=== PATIENT | male | born 1950 | race African-American/Black ===

== ENCOUNTER 2018-09-27 03:29 | Inpatient (IN) | payer OTHER ==
[2018-09-27] MEDS ORDERED: DILTIAZEM DRIP BOLUS FROM BAG 1 MG SOLN IV ONE (03:53)
[2018-09-27] MEDS ORDERED: MORPHINE SULFATE 4 MG/ML SYRINGE IV STA (03:53)
[2018-09-27] MEDS: DILTIAZEM 50 MG in SODIUM CHLORIDE 0.9% 40 ML IV SCH ×3 (04:14→23:50)
--- NOTE | 2018-09-27 04:19 | XR ---
EXAMINATION TYPE: XR chest 1V portable DATE OF EXAM: 09/27/2018 COMPARISON: NONE HISTORY: Abdominal pain TECHNIQUE: Single frontal view of the chest is obtained. FINDINGS: Heart is enlarged. There is no heart failure. Lungs are clear of consolidation. Thoracic a lin is atheromatous. There are chest leads. There is severe subacromial joint space narrowing at the shoulder joints. IMPRESSION: Cardiomegaly. No active cardiopulmonary disease.
[2018-09-27 04:21] LABS: Albumin 4.5 g/dL (3.5-5.0); Anisocytosis Slight; Basophils % (A) 0 %; Calcium 8.9 mg/dL (8.4-10.2); Eosinophils % (A) 0 %; HCT 29.3 % (39.0-53.0); HGB 9.1 gm/dL (13.0-17.5); Hypochromasia Slight; Lymphocytes # (A) 1.4 k/uL (1.0-4.8); Lymphocytes % (A) 10 %; MCHC 31.2 g/dL (31.0-37.0); MCV 89.7 fL (80.0-100.0); Mean Platelet Volume 8.7; Monocytes # (A) 0.8 k/uL (0-1.0); Monocytes % (A) 6 %; Neutrophils # (A) 11.5 k/uL (1.3-7.7); Neutrophils % (A) 82 %; Platelet Count 246 k/uL (150-450); Potassium 3.2 mmol/L (3.5-5.1); RBC 3.26 m/uL (4.30-5.90); RDW 18.2 % (11.5-15.5); Total Bilirubin 0.5 mg/dL (0.2-1.3); WBC 13.9 k/uL (3.8-10.6)
[2018-09-27 04:30] LABS: Partial Thromboplastin Time 22.3 sec (22.0-30.0); Prothrombin Time 10.5 sec (9.0-12.0)
[2018-09-27 04:37] LABS: Large Platelets Present; Poikilocytosis (M) Present
--- NOTE | 2018-09-27 04:37 | ED ---
Abdominal Pain HPI - General Chief Complaint: Abdominal Pain Stated Complaint: abd pain Time Seen by Provider: 09/27/18 03:52 Source: patient, family Mode of arrival: wheelchair Limitations: no limitations - History of Present Illness Initial Comments: This patient is a 68-year-old man presenting with chief complaint of abdominal pain. The patient does appear to be mildly delirious and the history is somewhat limited as he is not answering all questions. MD Complaint: abdominal pain -: hour(s) Location: suprapubic Radiation: back Migration to: no migration Severity: severe Quality: aching Consistency: constant Improves With: nothing Worsens With: eating Associated Symptoms: denies other symptoms - Related Data Allergies Allergy/AdvReac Type Severity Reaction Status Date / Time aspirin Allergy Rash/Hives Verified 09/27/18 03:38 Review of Systems ROS Statement: Those systems with pertinent positive or pertinent negative responses have been documented in the HPI. ROS Other: All systems not noted in ROS Statement are negative. Constitutional: Denies: fever, chills Respiratory: Denies: cough, dyspnea Cardiovascular: Denies: chest pain, edema Gastrointestinal: Reports: abdominal pain. Denies: diarrhea, constipation, melena Genitourinary: Denies: dysuria, hematuria Musculoskeletal: Denies: back pain Skin: Denies: rash Neurological: Denies: headache, weakness, numbness Past Medical History Past Medical History: Hypertension History of Any Multi-Drug Resistant Organisms: None Reported Past Surgical History: No Surgical Hx Reported Past Psychological History: No Psychological Hx Reported Smoking Status: Current every day smoker Past Alcohol Use History: Abuse Past Drug Use History: None Reported General Exam Limitations: no limitations General appearance: alert, in no apparent distress Head exam: Present: atraumatic, normocephalic Eye exam: Present: normal appearance. Absent: scleral icterus, conjunctival injection ENT exam: Present: normal oropharynx Respiratory exam: Present: normal lung sounds bilaterally. Absent: respiratory distress, wheezes, rales, rhonchi, stridor Cardiovascular Exam: Present: regular rate, normal rhythm, systolic murmur. Absent: normal heart sounds GI/Abdominal exam: Present: soft, tenderness. Absent: distended, guarding, rebound, mass, pulsatile mass Extremities exam: Present: normal inspection, normal capillary refill. Absent: pedal edema, calf tenderness Back exam: Absent: CVA tenderness (R), CVA tenderness (L) Skin exam: Present: warm, dry, intact, normal color. Absent: rash Course Vital Signs 09/27/18 09/27/18 09/27/18 03:32 04:00 04:30 Temperature 98.4 F Pulse Rate 74 144 H 114 H Respiratory 18 19 22 Rate Blood Pressure 158/93 193/90 148/104 O2 Sat by Pulse 97 100 100 Oximetry 09/27/18 09/27/18 05:00 08:17 Temperature 98 F Pulse Rate 108 H 103 H Respiratory 20 16 Rate Blood Pressure 152/105 162/97 O2 Sat by Pulse 100 100 Oximetry - Reevaluation(s) Reevaluation #1: 09/27/18 08:24 I was informed by nursing staff that they were told the patient has history of heroin use. Suspect there may be some element of withdrawal and will administer methadone to see if this helps to resolve patient's delirium. Procedures - Central Line Placement Right IJ Consent Obtained: emergent situation Time Out Performed: Yes Patient Placed on Monitor/Pulse Ox: Yes Prep: mask, gown, gloves Central Line Prep: Chlorhexidine scrub Local Anesthesia Used: Lidocaine 1% Ultrasound Used for Placement: Yes Central Line Lumen Inserted: triple Central Line Position: good blood return, all ports aspirated, flushed, capped, sutured in place with nylon Dressing Applied: Tegaderm Patient Tolerated Procedure: well Complications: none Medical Decision Making - Lab Data Result diagrams: 09/27/18 04:00 09/27/18 04:00 Lab Results 09/27/18 09/27/18 09/27/18 Range/Units 04:00 04:00 04:00 WBC 13.9 H (3.8-10.6) k/uL RBC 3.26 L (4.30-5.90) m/uL Hgb 9.1 L (13.0-17.5) gm/dL Hct 29.3 L (39.0-53.0) % MCV 89.7 (80.0-100.0) fL MCH 28.0 (25.0-35.0) pg MCHC 31.2 (31.0-37.0) g/dL RDW 18.2 H (11.5-15.5) % Plt Count 246 (150-450) k/uL Neutrophils % 82 % Lymphocytes % 10 % Monocytes % 6 % Eosinophils % 0 % Basophils % 0 % Neutrophils # 11.5 H (1.3-7.7) k/uL Lymphocytes # 1.4 (1.0-4.8) k/uL Monocytes # 0.8 (0-1.0) k/uL Eosinophils # 0.0 (0-0.7) k/uL Basophils # 0.0 (0-0.2) k/uL Manual Slide Review Performed Large Platelets Present Hypochromasia Slight Poikilocytosis (manual Present Anisocytosis Slight PT (9.0-12.0) sec INR (<1.2) APTT (22.0-30.0) sec Sodium 141 (137-145) mmol/L Potassium 3.2 L (3.5-5.1) mmol/L Chloride 106 (98-107) mmol/L Carbon Dioxide 17 L (22-30) mmol/L Anion Gap 18 mmol/L BUN 22 H (9-20) mg/dL Creatinine 1.35 H (0.66-1.25) mg/dL Est GFR (CKD-EPI)AfAm 62 (>60 ml/min/1.73 sqM) Est GFR (CKD-EPI)NonAf 54 (>60 ml/min/1.73 sqM) Glucose 219 H (74-99) mg/dL Lactic Ac Sepsis Rflx Plasma Lactic Acid Eugene 6.7 H* (0.7-2.0) mmol/L Calcium 8.9 (8.4-10.2) mg/dL Total Bilirubin 0.5 (0.2-1.3) mg/dL AST 72 H (17-59) U/L ALT 38 (21-72) U/L Alkaline Phosphatase 171 H (38-126) U/L Troponin I (0.000-0.034) ng/mL Total Protein 9.0 H (6.3-8.2) g/dL Albumin 4.5 (3.5-5.0) g/dL Amylase 397 H* (30-110) U/L Lipase 158 (23-300) U/L Urine Color Urine Appearance (Clear) Urine pH (5.0-8.0) Ur Specific [place] (1.001-1.035) Urine Protein (Negative) Urine Glucose (UA) (Negative) Urine Ketones (Negative) Urine Blood (Negative) Urine Nitrite (Negative) Urine Bilirubin (Negative) Urine Urobilinogen (<2.0) mg/dL Ur Leukocyte Esterase (Negative) Urine WBC (0-5) /hpf Urine Mucus (None) /hpf 09/27/18 09/27/18 09/27/18 Range/Units 04:00 04:00 04:55 WBC (3.8-10.6) k/uL RBC (4.30-5.90) m/uL Hgb (13.0-17.5) gm/dL Hct (39.0-53.0) % MCV (80.0-100.0) fL MCH (25.0-35.0) pg MCHC (31.0-37.0) g/dL RDW (11.5-15.5) % Plt Count (150-450) k/uL Neutrophils % % Lymphocytes % % Monocytes % % Eosinophils % % Basophils % % Neutrophils # (1.3-7.7) k/uL Lymphocytes # (1.0-4.8) k/uL Monocytes # (0-1.0) k/uL Eosinophils # (0-0.7) k/uL Basophils # (0-0.2) k/uL Manual Slide Review Large Platelets Hypochromasia Poikilocytosis (manual Anisocytosis PT 10.5 (9.0-12.0) sec INR 1.0 (<1.2) APTT 22.3 (22.0-30.0) sec Sodium (137-145) mmol/L Potassium (3.5-5.1) mmol/L Chloride (98-107) mmol/L Carbon Dioxide (22-30) mmol/L Anion Gap mmol/L BUN (9-20) mg/dL Creatinine (0.66-1.25) mg/dL Est GFR (CKD-EPI)AfAm (>60 ml/min/1.73 sqM) Est GFR (CKD-EPI)NonAf (>60 ml/min/1.73 sqM) Glucose (74-99) mg/dL Lactic Ac Sepsis Rflx Y Plasma Lactic Acid Eugene (0.7-2.0) mmol/L Calcium (8.4-10.2) mg/dL Total Bilirubin (0.2-1.3) mg/dL AST (17-59) U/L ALT (21-72) U/L Alkaline Phosphatase (38-126) U/L Troponin I 0.058 H* (0.000-0.034) ng/mL Total Protein (6.3-8.2) g/dL Albumin (3.5-5.0) g/dL Amylase (30-110) U/L Lipase (23-300) U/L Urine Color Urine Appearance (Clear) Urine pH (5.0-8.0) Ur Specific [place] (1.001-1.035) Urine Protein (Negative) Urine Glucose (UA) (Negative) Urine Ketones (Negative) Urine Blood (Negative) Urine Nitrite (Negative) Urine Bilirubin (Negative) Urine Urobilinogen (<2.0) mg/dL Ur Leukocyte Esterase (Negative) Urine WBC (0-5) /hpf Urine Mucus (None) /hpf 09/27/18 Range/Units 06:40 WBC (3.8-10.6) k/uL RBC (4.30-5.90) m/uL Hgb (13.0-17.5) gm/dL Hct (39.0-53.0) % MCV (80.0-100.0) fL MCH (25.0-35.0) pg MCHC (31.0-37.0) g/dL RDW (11.5-15.5) % Plt Count (150-450) k/uL Neutrophils % % Lymphocytes % % Monocytes % % Eosinophils % % Basophils % % Neutrophils # (1.3-7.7) k/uL Lymphocytes # (1.0-4.8) k/uL Monocytes # (0-1.0) k/uL Eosinophils # (0-0.7) k/uL Basophils # (0-0.2) k/uL Manual Slide Review Large Platelets Hypochromasia Poikilocytosis (manual Anisocytosis PT (9.0-12.0) sec INR (<1.2) APTT (22.0-30.0) sec Sodium (137-145) mmol/L Potassium (3.5-5.1) mmol/L Chloride (98-107) mmol/L Carbon Dioxide (22-30) mmol/L Anion Gap mmol/L BUN (9-20) mg/dL Creatinine (0.66-1.25) mg/dL Est GFR (CKD-EPI)AfAm (>60 ml/min/1.73 sqM) Est GFR (CKD-EPI)NonAf (>60 ml/min/1.73 sqM) Glucose (74-99) mg/dL Lactic Ac Sepsis Rflx Plasma Lactic Acid Eugene (0.7-2.0) mmol/L Calcium (8.4-10.2) mg/dL Total Bilirubin (0.2-1.3) mg/dL AST (17-59) U/L ALT (21-72) U/L Alkaline Phosphatase (38-126) U/L Troponin I (0.000-0.034) ng/mL Total Protein (6.3-8.2) g/dL Albumin (3.5-5.0) g/dL Amylase (30-110) U/L Lipase (23-300) U/L Urine Color Light Yellow Urine Appearance Clear (Clear) Urine pH 7.0 (5.0-8.0) Ur Specific [place] 1.006 (1.001-1.035) Urine Protein 1+ H (Negative) Urine Glucose (UA) Trace H (Negative) Urine Ketones Negative (Negative) Urine Blood Moderate H (Negative) Urine Nitrite Negative (Negative) Urine Bilirubin Negative (Negative) Urine Urobilinogen <2.0 (<2.0) mg/dL Ur Leukocyte Esterase Negative (Negative) Urine WBC 1 (0-5) /hpf Urine Mucus Rare H (None) /hpf - EKG Data -: EKG Interpreted by Ne EKG shows normal: axis Rate: tachycardia Interpretation: other (Normal the underlying rhythm appears to be atrial fibrillation with RVR rate approximately 135 bpm) Disposition Referrals: None,Stated [Primary Care Provider] - 1-2 days
[2018-09-27] MEDS ORDERED: SODIUM CHLORIDE 0.9% 2,100 ML IV ONE (05:00)
[2018-09-27] MEDS ORDERED: LORazepam 2 MG/ML INJ IV STA (05:01)
--- NOTE | 2018-09-27 06:04 | CT ---
EXAMINATION TYPE: CT ChestAbdPelvis w con DATE OF EXAM: 09/27/2018 COMPARISON: None HISTORY: abd pain chest pain CT DLP: 596.80 mGycm Automated exposure control for dose reduction was used. CONTRAST: CT scan of the chest, abdomen and pelvis is performed without Oral Contrast and with IV Contrast, pat ient injected with 100 mL of Isovue 300. FINDINGS: There is some mild atelectasis at the lung bases. Heart is enlarged. There is no pericardial effusion . There is no pleural effusion. There is no mediastinal adenopathy. Thoracic aorta is atheromatous. T here are no hilar masses. Liver shows no focal defect. The bile ducts are not dilated. Spleen appears normal. There is a 1 cm c yst in the anterior pancreatic head. There is mild dilation of the mid and distal pancreatic duct. Abdominal aorta is atheromatous. There is no retroperitoneal adenopathy. There is no adrenal mass. Ki dneys show satisfactory contrast opacification. There are multiple bilateral renal cortical cysts macy t measure up to 1.7 cm. There is dilation of the left and right renal collecting systems. Urinary cheikh dder is large. Prostate measures 4.4 cm. There is no free fluid in the pelvis. There is right-sided i nguinal and scrotal hernia that contains the cecum and the terminal ileum. Appendix is not definitely seen. There is no sign of appendicitis. I see no definite free fluid in the abdomen. There are spondylotic changes in the thoracic and lumbar spine. There is no compression fracture. The bony pelvis is intact. There is extensive hypertrophic bone formation around the greater trochanter of the left femur. There is bridging osteophyte formation between the acetabulum and the greater troc hanter.. IMPRESSION: Cardiomegaly. Patchy atelectasis at the lung bases. Atherosclerotic vascular disease. Mild to moderate bilateral hydronephrosis and mild hydroureter probably due to chronic bladder outlet obstruction. Dilated urinary bladder that measures 14 cm in length. No obstructing calculus identifi ed. Large right side scrotal hernia containing cecum and terminal ileum. No bowel obstruction seen. No evidence of thoracic or abdominal aortic aneurysm or dissection.
[2018-09-27 07:04] LABS: Appearance,Urine Clear (Clear); Bilirubin,Urine Negative (Negative); Blood,Urine Moderate (Negative); Color,Urine Light Yellow; Glucose,Urine (UA) Trace (Negative); Ketones,Urine Negative (Negative); Leukocyte Esterase,Urine Negative (Negative); Mucus,Urine Rare /hpf; Nitrite,Urine Negative (Negative); Protein,Urine 1+ (Negative); Specific Gravity,Urine 1.006 (1.001-1.035); Urobilinogen,Urine <2.0 mg/dL (<2.0); WBC,Urine 1 /hpf (0-5)
[2018-09-27] MEDS ORDERED: ENOXAPARIN 60 MG/0.6 ML SYRINGE SQ STA (08:14)
[2018-09-27] MEDS ORDERED: LEVOFLOXACIN 750MG-D5W PMX 750 MG in DEXTROSE/WATER 1 150ML.BAG IVPB STA (08:17)
[2018-09-27] MEDS ORDERED: ONDANSETRON 4 MG/2 ML VIAL IVP PRN (08:20)
[2018-09-27] MEDS ORDERED: NALOXONE 0.4 MG/ML 1 ML VIAL IV PRN (08:20)
[2018-09-27] MEDS ORDERED: SODIUM CHLORIDE 0.9% 1,000 ML IV STA (08:23)
[2018-09-27] MEDS ORDERED: METHADONE 10 MG TAB PO STA (08:41)
--- NOTE | 2018-09-27 09:06 | XR ---
EXAMINATION TYPE: XR chest 1V confirm line plctx DATE OF EXAM: 09/27/2018 HISTORY: line placement. REFERENCE: Previous study dated earlier today. FINDINGS: The right internal jugular line has been inserted. Its tip is within the jugular vein. A pa in stimulator is present overlying the dorsal spine. A poorly visualized opacities seen overlying the trachea was not present previously. The etiology of this is uncertain. The heart is enlarged. There is mild vascular congestion and subtle interstitial change. Pleural spac es are clear. IMPRESSION: MILD CHANGES OF CONGESTIVE HEART FAILURE.
[2018-09-27] MEDS: FAMOTIDINE 20 MG TAB PO SCH ×2 (09:11→21:18)
[2018-09-27] MEDS: MORPHINE SULFATE 4 MG/ML SYRINGE IV PRN ×2 (09:12→12:55)
--- NOTE | 2018-09-27 14:33 | US ---
EXAMINATION TYPE: US scrotum with doppler. Grayscale and color Doppler Duplex imaging performed of earl ribeiro scrotum. DATE OF EXAM: 09/27/2018 COMPARISON: NONE CLINICAL HISTORY: BLOOD, SWELLING. Patient states swollen testicles for awhile now, but getting worse , no testicle pain EXAM MEASUREMENTS: TESTICLES: Right Testicle: 7.0 x 5.4 x 5.5cm Left Testicle: 4.1 x 2.1 x 2.4cm EPIDIDYMIS HEAD: Right Epididymis: not seen Left Epididymis: 0.6cm Doppler performed to assess for testicular vascularity; good bilateral color flow and waveforms are s een. There is no evidence of testicular torsion. Presence of hydroceles: mild bilaterally, inferior right, superior left Presence of varicoceles: no Right testicle is enlarged and filled with calcifications. Was able to achieve peripheral blood ava w to testicle but all the internal calcifications creates artifact that prohibits vascular assessment . Testicular microlithiasis typically density bilateral. In this case it is only unilateral. IMPRESSION: GRADE 4 RIGHT-SIDED TESTICULAR MICROLITHIASIS. THERE IS A DEBATABLE INCREASED RISK OF TESTICULAR CANC ER. UROLOGIC CONSULT WOULD BE SUGGESTED.
[2018-09-27] MEDS ORDERED: PIPERACILLIN-TAZOBACTAM 3.375 GM in SODIUM CHLORIDE 0.9% 100 ML IVPB STA (14:58)
[2018-09-27] MEDS ORDERED: HYDROmorphone 1 MG/ML 1 ML SYRINGE IVP STA (14:59)
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
[2018-09-27 15:37] LABS: Anisocytosis Slight; HCT 29.7 % (39.0-53.0); HGB 9.6 gm/dL (13.0-17.5); MCHC 32.5 g/dL (31.0-37.0); MCV 89.4 fL (80.0-100.0); Mean Platelet Volume 8.3; Platelet Count 196 k/uL (150-450); RBC 3.33 m/uL (4.30-5.90); RDW 18.2 % (11.5-15.5); WBC 8.9 k/uL (3.8-10.6)
[2018-09-27 15:47] LABS: Albumin 4.2 g/dL (3.5-5.0); Calcium 8.5 mg/dL (8.4-10.2); Potassium 3.5 mmol/L (3.5-5.1); Total Bilirubin 0.7 mg/dL (0.2-1.3); Total Protein 8.5 g/dL (6.3-8.2)
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
--- NOTE | 2018-09-27 15:57 | P.HPIM ---
History of Present Illness This is a pleasant 68 years old male with past medical history of hypertension and no much home medication presents because of abdominal pain In the emergency room he was afebrile, tachycardic with heart rate range between 110-144. Tachypneic with heart rate 25 blood pressure 137/88. Labs reviewed showing WBC 13.9 K, hemoglobin 9.1, platelets 246. INR 1.0. Sodium 141. Potassium 3.2. High lactic acid 6.7, coming down to 3.1, with elevated AST at 72. With normal ALT. Troponin is elevated at 0.05 and 0.08. Amylase is high but lipase within normal at 158. Urinalysis showing moderate blood. Chest x-ray showed cardiomegaly with no active cardiopulmonary disease. The patient was shown mild changes of congestive CHF. CT of the abdomen and pelvis showing right-sided inguinal and scrotal hernia contents the cecum and terminal ileum. But don't us obstruction. However in the abdominal examination patient has significant abdominal tenderness and scrotal tenderness with his swelling. This was discussed with the surgical call Dr. Cline and the plan was to take him to the surgery for his acute abdomen and after that may be to the intensive care unit. I spoke with the patient and he able to do the surgery also I spoke with the patient daughter upon his request Mrs. Pederson at [phone]. And updated her with her father situation and all her rashes were answered to her satisfaction. Review of Systems CONSTITUTIONAL: No fever, no malaise, no fatigue. HEENT: No recent visual problems or hearing problems. Denied any sore throat. CARDIOVASCULAR: No orthopnea, PND, no palpitations, no syncope. PULMONARY: No shortness of breath, no cough, no hemoptysis. GASTROINTESTINAL: Severe abdominal pain. Normoactive bowel sounds. NEUROLOGICAL: No headaches, no weakness, no numbness. HEMATOLOGICAL: Denies any bleeding or petechiae. GENITOURINARY: Denies any burning micturition, frequency, or urgency. MUSCULOSKELETAL/RHEUMATOLOGICAL: Denies any joint pain, swelling, or any muscle pain. ENDOCRINE: Denies any polyuria or polydipsia. Past Medical History Past Medical History: Hypertension History of Any Multi-Drug Resistant Organisms: None Reported Past Surgical History: No Surgical Hx Reported Past Psychological History: No Psychological Hx Reported Smoking Status: Current every day smoker Past Alcohol Use History: Abuse Past Drug Use History: None Reported Medications and Allergies Home Medications Medication Instructions Recorded Confirmed Type Atorvastatin [Lipitor] 40 mg PO HS 09/27/18 09/27/18 History Clopidogrel [Plavix] 75 mg PO DAILY 09/27/18 09/27/18 History Elviteg/Cob/Emtri/Tenof Alafen 1 tab PO DAILY 09/27/18 09/27/18 History [Genvoya Tablet] amLODIPine [Norvasc] 10 mg PO DAILY 09/27/18 09/27/18 History Allergies Allergy/AdvReac Type Severity Reaction Status Date / Time aspirin Allergy Rash/Hives Verified 09/27/18 11:30 Physical Exam Vitals: Vital Signs Temp Pulse Resp BP Pulse Ox 09/27/18 14:00 110 H 25 H 137/88 96 09/27/18 13:00 114 H 25 H 138/87 99 09/27/18 12:00 123 H 20 144/90 100 09/27/18 11:00 115 H 20 136/82 100 09/27/18 10:55 99.2 F 09/27/18 10:00 118 H 24 132/91 09/27/18 09:17 112 H 18 158/92 100 09/27/18 08:17 98 F 103 H 16 162/97 100 09/27/18 05:00 108 H 20 152/105 100 09/27/18 04:30 114 H 22 148/104 100 09/27/18 04:00 144 H 19 193/90 100 09/27/18 03:32 98.4 F 74 18 158/93 97 Intake and Output 09/27/18 09/27/18 09/27/18 06:59 14:59 22:59 Intake Total 50.000 Balance 50.000 Intake: Intake, IV Titration 50.000 Amount Diltiazem 50 mg In Sodium 50.000 Chloride 0.9% 40 ml @ 5 MG/HR 5 mls/hr IV .Q[facility]H [facility] Rx#:[id number] Other: Weight 65.771 kg GENERAL: The patient is alert and oriented x3, not in any acute distress. Well developed, well nourished. HEENT: Pupils are round and equally reacting to light. EOMI. No scleral icterus. No conjunctival pallor. Normocephalic, atraumatic. No pharyngeal erythema. No thyromegaly. CARDIOVASCULAR: S1 and S2 present. No murmurs, rubs, or gallops. PULMONARY: Chest is clear to auscultation, no wheezing or crackles. -ABDOMEN: Soft, severely tender, rebound tenderness nondistended, normoactive bowel sounds. No palpable organomegaly. At scrotal swelling and tenderness MUSCULOSKELETAL: No joint swelling or deformity. EXTREMITIES: No cyanosis, clubbing, or pedal edema. NEUROLOGICAL: Gross neurological examination did not reveal any focal deficits. SKIN: No rashes. Results CBC & Chem 7: 09/27/18 15:07 09/27/18 15:07 Labs: Abnormal Lab Results - Last 24 Hours (Table) 09/27/18 09/27/18 09/27/18 Range/Units 04:00 04:00 04:00 WBC 13.9 H (3.8-10.6) k/uL RBC 3.26 L (4.30-5.90) m/uL Hgb 9.1 L (13.0-17.5) gm/dL Hct 29.3 L (39.0-53.0) % RDW 18.2 H (11.5-15.5) % Neutrophils # 11.5 H (1.3-7.7) k/uL Potassium 3.2 L (3.5-5.1) mmol/L Carbon Dioxide 17 L (22-30) mmol/L BUN 22 H (9-20) mg/dL Creatinine 1.35 H (0.66-1.25) mg/dL Glucose 219 H (74-99) mg/dL Plasma Lactic Acid Eugene 6.7 H* (0.7-2.0) mmol/L AST 72 H (17-59) U/L Alkaline Phosphatase 171 H (38-126) U/L Troponin I (0.000-0.034) ng/mL Total Protein 9.0 H (6.3-8.2) g/dL Amylase 397 H* (30-110) U/L Urine Protein (Negative) Urine Glucose (UA) (Negative) Urine Blood (Negative) Urine Mucus (None) /hpf 09/27/18 09/27/18 09/27/18 Range/Units 04:00 06:40 09:31 WBC (3.8-10.6) k/uL RBC (4.30-5.90) m/uL Hgb (13.0-17.5) gm/dL Hct (39.0-53.0) % RDW (11.5-15.5) % Neutrophils # (1.3-7.7) k/uL Potassium (3.5-5.1) mmol/L Carbon Dioxide (22-30) mmol/L BUN (9-20) mg/dL Creatinine (0.66-1.25) mg/dL Glucose (74-99) mg/dL Plasma Lactic Acid Eugene 3.1 H* (0.7-2.0) mmol/L AST (17-59) U/L Alkaline Phosphatase (38-126) U/L Troponin I 0.058 H* (0.000-0.034) ng/mL Total Protein (6.3-8.2) g/dL Amylase (30-110) U/L Urine Protein 1+ H (Negative) Urine Glucose (UA) Trace H (Negative) Urine Blood Moderate H (Negative) Urine Mucus Rare H (None) /hpf 09/27/18 Range/Units 09:31 WBC (3.8-10.6) k/uL RBC (4.30-5.90) m/uL Hgb (13.0-17.5) gm/dL Hct (39.0-53.0) % RDW (11.5-15.5) % Neutrophils # (1.3-7.7) k/uL Potassium (3.5-5.1) mmol/L Carbon Dioxide (22-30) mmol/L BUN (9-20) mg/dL Creatinine (0.66-1.25) mg/dL Glucose (74-99) mg/dL Plasma Lactic Acid Eugene (0.7-2.0) mmol/L AST (17-59) U/L Alkaline Phosphatase (38-126) U/L Troponin I 0.082 H* (0.000-0.034) ng/mL Total Protein (6.3-8.2) g/dL Amylase (30-110) U/L Urine Protein (Negative) Urine Glucose (UA) (Negative) Urine Blood (Negative) Urine Mucus (None) /hpf Assessment and Plan Assessment: Acute abdomen Incarcerated right inguinal hernia, patient is going for surgery Anemia Lactic acid Elevated troponin Hematuria Scrotal swelling, for sound showing calcification. Plan: This is a pleasant 68 years old male who presents with acute abdomen secondary to incarcerated hernia. Patient is going for surgery. Surgical team was been contacted. Surgery consult is appreciated as well as critical team consult. Continue with IV fluids. NG tube. Nothing by mouth.Labs and medication were reviewed. After surgery patient might be going to the intensive care unit. Continue same treatment. Continue with symptomatic treatment. Resume home medication. Monitor lytes and vitals. DVT and GI prophylaxis. Further recommendations of the clinical course of the patient Prognosis is guarded
[2018-09-27 15:59] LABS: Band Neutrophils % 7 %; Lymphocytes # (M) 0.27 k/uL (1.0-4.8); Monocytes # (M) 0.62 k/uL (0-1.0); Neutrophils % (M) 83 %; Nucleated Red Blood Cells 0 /100 WBC (0-0); Total Cells Counted 100
[2018-09-27 16:00] LABS: Poikilocytosis (M) Present
--- NOTE | 2018-09-27 16:04 | XR ---
Abdomen HISTORY: Abdominal pain, nausea and vomiting Frontal view of the abdomen on [address] chest, abdomen pelvis 09/27/2018 and scrotal ultrasound 09/27/2018 Patient's stimulator in the left lower chest shows a lead coursing along the sternal region as on pre vious exam. Lung bases show some minimal atelectatic change. No evident pneumoperitoneum. Distortion of the left hip seen on prior exam. Gas-filled loop of bowel present in the mid abdomen may correspon d. Degenerative disc changes are present in the visualized spine. The area identified in the right hemiscrotum on ultrasound corresponds to a bowel loop due to patient 's hernia. IMPRESSION: Correlate to exclude bowel obstruction due to patient's hernia with bowel loop extending into the right hemiscrotum.
[2018-09-27] MEDS ORDERED: SUCCINYLCHOLINE CHLORIDE 100 MG/5 ML SYR IV ONE (16:36)
[2018-09-27] MEDS ORDERED: fentaNYL (PF) 50 MCG/ML 2 ML AMP ONE (16:36)
[2018-09-27] MEDS ORDERED: ETOMIDATE 2 MG/ML 10 ML VIAL ONE (16:36)
[2018-09-27] MEDS ORDERED: PHENYLEPHRINE-0.9% NACL SYG 1 MG/10 ML SYRINGE ONE (16:36)
[2018-09-27] MEDS ORDERED: ROCURONIUM BROMIDE 10 MG/ML 10 ML VIAL IV ONE (16:36)
[2018-09-27] MEDS ORDERED: MIDAZOLAM 2 MG/2 ML VIAL ONE (16:36)
[2018-09-27] MEDS ORDERED: SODIUM CHLORIDE 0.9% 1,000 ML IV ONE ×3 (16:36→19:59)
[2018-09-27 17:13] LABS: Anisocytosis Slight; HCT 27.1 % (39.0-53.0); HGB 8.7 gm/dL (13.0-17.5); MCH 28.1 pg (25.0-35.0); MCHC 31.9 g/dL (31.0-37.0); MCV 88.1 fL (80.0-100.0); Mean Platelet Volume 8.7; Platelet Count 169 k/uL (150-450); RBC 3.08 m/uL (4.30-5.90); RDW 17.9 % (11.5-15.5); WBC 7.2 k/uL (3.8-10.6)
[2018-09-27 17:31] LABS: Band Neutrophils % 13 %; Lymphocytes # (M) 0.14 k/uL (1.0-4.8); Monocytes # (M) 0.43 k/uL (0-1.0); Neutrophils % (M) 79 %; Nucleated Red Blood Cells 0 /100 WBC (0-0); Total Cells Counted 100
[2018-09-27 17:39] LABS: Albumin 3.5 g/dL (3.5-5.0); Calcium 7.9 mg/dL (8.4-10.2); Total Bilirubin 0.7 mg/dL (0.2-1.3); Total Protein 7.6 g/dL (6.3-8.2)
--- NOTE | 2018-09-27 18:48 | P.OP ---
Date of Procedure: 09/27/18 Preoperative Diagnosis: Peritonitis Postoperative Diagnosis: Ischemic bowel Strangulated inguinal hernia Procedure(s) Performed: Exploratory laparotomy Bowel resection Ileostomy creation Anesthesia: LAURA Surgeon: Aiden Cline Pathology: other (Right colon, extended) Condition: critical Disposition: ICU Indications for Procedure: This is a 68-year-old male that presented to the emergency department with complaints of abdominal pain. During his emergency department workup, he was found to have an incarcerated inguinal hernia. His clinical status diminished during his emergency department stay and I was consulted by the heel cementer machine due to questionable peritonitis. On my exam, the patient did have peritonitis and was unable to give a clear history due to moderate amount of distress. The patient did have peritonitis with palpation of his abdomen and tenderness on palpation in his scrotum. His scrotum did have palpable hernia contents. The ER did place a right-sided internal jugular central venous catheter and a Pickett catheter. Prior to the arrival to the operating room, the Pickett catheter was noted to have bright red blood. The patient was taken to the operating room as an emergent case due to peritonitis. The anesthesiologist did place an A-line prior to the beginning of the operation. Operative Findings: Ischemic bowel, beginning in the distal ileum and extending throughout the right colon and most of the transverse colon. The bowel was noted to be strangulated in the right inguinal canal. During the operation, the patient was noted to be hypotensive and was begun on pressor therapy during the case. Description of Procedure: The patient was brought into the operating suite and placed in supine position on the operating table. Sedation was provided by anesthesia and the patient underwent endotracheal intubation. The patient was then prepped and draped in regular sterile fashion. A midline incision was made from the pubis towards just superior to the umbilicus. Dissection was carried to the fascia the fascia was incised along the length of the incision. On immediate entrance into the abdomen turbid fluid was noted and a significant foul odor was noted. The patient was noted to have a strangulated right inguinal hernia. The ischemia from the hernia contents was noted to contain the ileum and the cecum. Ischemia was noted throughout the colon that extended throughout the right colon and the transverse colon. Once the hernia was reduced, a site of healthy bowel was isolated proximally and this was noted as the distal ileum. A window was created in the mesentery and a KHRIS 75 mm staple load was fired. A LigaSure device was used to resect the colon from the mesenteric attachments. This was done throughout the right colon and towards the transverse colon. The white line of Toldt was dissected free, completely removing the colon from all of its attachments. A distal site of healthy colon was noted and the KHRIS 75 mm staple load was fired across this site. Irrigation was then used within the abdomen. During the case, anesthesia was required to begin pressor therapy. Due to the patient's clinical status, it was decided to create a loop ileostomy and close the abdomen. A circular incision was made in the right lower quadrant dissection was carried to the fascia the fascia was incised and a cruciate manner and the abdomen was entered. The loop of ileostomy was pulled through this site. The midline incision was then closed using a running PDS suture. Skin incision was closed with skin hever. The ileostomy was then matured in standard fashion. Throughout the case, the patient was noted to continue to have hematuria. Due to the patient needing pressor therapy and having such an extensive ischemic portion of colon, the patient's prognosis at this point is poor.
[2018-09-27 18:54] LABS: Glucose,Whole Blood 113 mg/dL (75-99)
[2018-09-27] MEDS: PROPOFOL 1,000 MG in EMPTY BAG 1 BAG IV SCH (19:48)
[2018-09-27 19:52] LABS: ABG Base Excess -7.2 mmol/L; ABG HCO3 20 mmol/L (21-25); ABG PCO2 47 mmHg (35-45); ABG PH 7.24 (7.35-7.45); ABG PO2 291 mmHg (83-108); ABG TCO2 22 mmol/L (19-24)
--- NOTE | 2018-09-27 20:11 | XR ---
EXAMINATION TYPE: XR chest 1V portable DATE OF EXAM: 09/27/2018 COMPARISON: Today HISTORY: Check line placement TECHNIQUE: Single frontal view of the chest is obtained. FINDINGS: There is right jugular catheter with the tip over the right clavicle. There is nasogastric tube. There is endotracheal tube with the tip approximately 4 cm from the danna. There are chest le ads. There are bilateral lower lobe patchy pulmonary infiltrates. Heart is enlarged. No pneumothorax. IMPRESSION: Endotracheal tube in good position. There is cardiomegaly and pulmonary congestion sugge stive of mild heart failure. Chest x-ray not significantly different than exam earlier today.
[2018-09-27] MEDS: SODIUM CHLORIDE 0.9% 1,000 ML IV SCH (20:24)
[2018-09-27] MEDS: CHLORHEXIDINE GLUCONATE 15 ML CUP MUCOUS MEM SCH (21:00)
[2018-09-28] MEDS: MORPHINE SULFATE 4 MG/ML SYRINGE IV PRN ×3 (01:22→16:34)
[2018-09-28 04:30] LABS: ABG Base Excess -9.5 mmol/L; ABG HCO3 17 mmol/L (21-25); ABG Oxygen Saturation 98.8 % (94-97); ABG PCO2 33 mmHg (35-45); ABG PH 7.32 (7.35-7.45); ABG PO2 119 mmHg (83-108); ABG TCO2 18 mmol/L (19-24)
[2018-09-28 04:52] LABS: Anisocytosis Slight; HCT 23.6 % (39.0-53.0); HGB 7.6 gm/dL (13.0-17.5); Hypochromasia Slight; MCH 29.1 pg (25.0-35.0); MCHC 32.3 g/dL (31.0-37.0); MCV 90.1 fL (80.0-100.0); Mean Platelet Volume 9.5; Platelet Count 162 k/uL (150-450); RBC 2.62 m/uL (4.30-5.90); RDW 18.3 % (11.5-15.5)
[2018-09-28 05:02] LABS: Calcium 7.1 mg/dL (8.4-10.2); Magnesium 1.7 mg/dL (1.6-2.3); Phosphorus 5.5 mg/dL (2.5-4.5); Potassium 5.1 mmol/L (3.5-5.1)
[2018-09-28] MEDS ORDERED: SODIUM CHLORIDE 0.9% 1,000 ML IV ONE (05:55)
[2018-09-28 06:06] LABS: Band Neutrophils % 30 %; Lymphocytes # (M) 0.17 k/uL (1.0-4.8); Monocytes # (M) 0.11 k/uL (0-1.0); Myelocytes # (M) 0.11 k/uL (0); Myelocytes % 2 %; Neutrophils % (M) 63 %; Nucleated Red Blood Cells 1 /100 WBC (0-0); Total Cells Counted 200
[2018-09-28 06:07] LABS: Polychromasia Present; WBC 5.6 k/uL (3.8-10.6)
--- NOTE | 2018-09-28 06:18 | XR ---
EXAMINATION TYPE: XR chest 1V portable DATE OF EXAM: 09/28/2018 HISTORY: Tube placement. REFERENCE: Previous study dated 09/27/2018. FINDINGS: The patient is ET tube, NG tube and right internal jugular catheter remain in place, unchan ged in appearance. A pain stimulator projects over the thoracic spine. The heart is enlarged. Vascular congestion has improved. There continues to be some confluent airspac e disease the lung bases bilaterally. Both CP angles are blunted and I cannot exclude small effusions . IMPRESSION: IMPROVING CHANGES OF CONGESTIVE HEART FAILURE.
[2018-09-28] MEDS: DILTIAZEM 50 MG in SODIUM CHLORIDE 0.9% 40 ML IV SCH ×2 (07:45→15:07)
[2018-09-28] MEDS: MAGNESIUM SULFATE-D5W PMX 1 GM in DEXTROSE/WATER 1 100ML.BAG IVPB SCH ×2 (07:47→08:12)
[2018-09-28] MEDS: SODIUM CHLORIDE 0.9% 1,000 ML IV SCH (07:47)
[2018-09-28] MEDS: CHLORHEXIDINE GLUCONATE 15 ML CUP MUCOUS MEM SCH (08:12)
[2018-09-28] MEDS: PANTOPRAZOLE 40 MG/10 ML VIAL IVP SCH (08:12)
[2018-09-28] MEDS: PIPERACILLIN-TAZOBACTAM 3.375 GM in SODIUM CHLORIDE 0.9% 100 ML IVPB SCH ×4 (08:12→16:33)
--- NOTE | 2018-09-28 10:44 | CONS ---
CONSULTATION This is a 68-year-old gentleman who has most of his health care in the [place] area. He goes to the [facility] and also has a place in [place] where he gets some of his health care. He came into the emergency room because of an abdominal pain. He is going through an IV drug abuse rehab in a nursing home house on [facility] in a house in [place] and developed abdominal pain in the suprapubic area then bilaterally in the right and left upper quadrants and came into the hospital. He was also found to be in atrial fibrillation. CT scan revealed dilated urinary bladder with the scrotal hernia as well. He clinically had a bowel obstruction and was seen by Dr. Pate and went on to have a resection of his bowel on distal part of the ileum and also the ascending and transverse colon as well. He basically had a bowel resection and ileostomy creation for a strangulated hernia and ischemic bowel. He was found to be in atrial fibrillation and he has been on Plavix for this medication. He is at this time, intubated, has converted to sinus rhythm and is on a Cardizem drip. He is on Plavix and atorvastatin and because of his HIV status, he is on medication for that and amlodipine. It is unclear whether his atrial fibrillation is new or old, but he is not on any anticoagulation other than antiplatelet agent Plavix. At the time of my evaluation, he is hemodynamically stable on the ventilator. He is not on any drips, oxygenating well. PAST MEDICAL HISTORY: 1. Hypertension. 2. HIV status, on medications. 3. Hypertension. 4. Hyperlipidemia. 5. History of IV drug abuse in a rehab situation in [place] at this time and he is originally a resident of [facility]. MEDICATIONS: At home include amlodipine 10 mg daily, Plavix 75 mg daily, Lipitor 40 mg daily, and he takes a combination pill for his HIV. ALLERGIES: HE IS ALLERGIC TO ASPIRIN. PHYSICAL EXAMINATION: Blood pressure is 120/70, pulse rate is about 80 per minute appears to be sinus today, but initial EKG when he came in revealed atrial fibrillation with moderate rapid ventricular rate, nonspecific ST-T changes and voltage criteria for LVH. His troponin also had a borderline elevation when he first came in at 0.9 and 0.8 respectively, but this could be related to atrial fibrillation also. On examination blood pressure is 120/70, pulse is about 90 per minute sinus HEENT: Unremarkable. Fundus was not examined by me. NECK: Supple. There is JVD of 1 cm. No carotid bruit. Heart exam reveals S1, S2 with and with a short systolic murmur at the base and left sternal border. Lungs reveal air entry assisted by ventilator. Abdomen is soft. I did not do a detailed exam. Lower extremities reveal diminished pulses. Central nervous system assessment was not possible. IMPRESSION: 1. Acute abdominal with ischemic bowel and strangulated hernia status post surgery and bowel resection with ileostomy. 2. Hypertension. 3. Hyperlipidemia. 4. HIV positive status on medications. 5. History of paroxysmal atrial fibrillation, which I do not think is new, but he is not anticoagulated. RECOMMENDATIONS: I am recommending that we decrease IV Cardizem to 5 mg daily, perform echocardiogram in the morning. His blood pressure control is optimal. We will check with Dr. York as to when we can start anticoagulation for this gentleman. Based on his clinical course, I will make further recommendations but overall prognosis remains quite guarded. Thank you very much for the consultation. MMODL / IJN: [id number] /
[2018-09-28] MEDS: DEXTROSE 5% IN WATER 1,000 ML with SODIUM BICARB (1 MEQ/ML) 150 ML IV SCH ×2 (10:58→20:00)
--- NOTE | 2018-09-28 11:16 | P.PN ---
Subjective Progress Note Date: 09/28/18 Patient seen and examined at bedside. Currently intubated. Adequate urine output. NG tube in place for decompression. Ostomy in place with no significant output at this time. Objective - Vital Signs Vital signs: Vital Signs Temp 99.4 F 09/28/18 08:00 Pulse 96 09/28/18 11:00 Resp 25 H 09/28/18 11:00 BP 127/91 09/27/18 15:00 Pulse Ox 98 09/28/18 11:00 Intake & Output 09/27/18 09/28/18 09/28/18 18:59 06:59 18:59 Intake Total 4700.753 8953.132 818.75 Output Total 500 615 460 Balance 914.319 4272.132 358.75 Weight 67 kg 67 kg Intake: IV 1000 3349 800 Dextrose 5% in Water 1, 125 000 ml @ 125 mls/hr IV . Q9H12M [facility] with Sodium Bicarb (1 Meq/ml) 150 ml Rx#:[id number] Magnesium Sulfate-D5w Pmx 200 1 gm In Dextrose/Water 1 100ml.bag @ 100 mls/hr IVPB Q1H [facility] Rx#: [id number] Normal saline 1000 Piperacillin-Tazobactam 3 100 100 .375 gm In Sodium Chloride 0.9% 100 ml @ 25 mls/hr IVPB ONCE STA Rx# :[id number] Sodium Chloride 0.9% 1, 2249 375 000 ml @ 125 mls/hr IV . Q8H [facility] Rx#:[id number] Intake, IV Titration 50.000 161.132 18.75 Amount Diltiazem 50 mg In Sodium 50.000 100 18.75 Chloride 0.9% 40 ml @ 5 MG/HR 5 mls/hr IV .Q10H [facility] Rx#:[id number] Propofol 1,000 mg In 61.132 Empty Bag 1 bag @ Titrate IV .Q0M [facility] Rx#: [id number] Output: Gastric Drainage 250 Urine 400 615 210 Estimated Blood Loss 100 Other: Voiding Method Indwelling Catheter Indwelling Catheter ABP, PAP, CO, CI - Last Documented Arterial Blood Pressure 120/58 - Constitutional Constitutional Comment(s): Vented and sedated - Respiratory Details: No difficulty on ventilator - Gastrointestinal Gastrointestinal Comment(s): Soft, distended, midline incision with hever in place. Ostomy red and patent - Labs CBC & Chem 7: 09/28/18 04:33 09/28/18 04:33 Labs: Abnormal Lab Results - Last 24 Hours (Table) 09/27/18 09/27/18 09/27/18 Range/Units 15:07 15:07 15:07 RBC 3.33 L (4.30-5.90) m/uL Hgb 9.6 L (13.0-17.5) gm/dL Hct 29.7 L (39.0-53.0) % RDW 18.2 H (11.5-15.5) % Neutrophils # (Manual) 8.00 H (1.3-7.7) k/uL Lymphocytes # (Manual) 0.27 L (1.0-4.8) k/uL Myelocytes # (Manual) (0) k/uL Nucleated RBCs (0-0) /100 WBC ABG pH (7.35-7.45) ABG pCO2 (35-45) mmHg ABG pO2 (83-108) mmHg ABG HCO3 (21-25) mmol/L ABG Total CO2 (19-24) mmol/L ABG O2 Saturation (94-97) % Chloride 109 H (98-107) mmol/L Carbon Dioxide 19 L (22-30) mmol/L BUN 24 H (9-20) mg/dL Creatinine (0.66-1.25) mg/dL Glucose 110 H (74-99) mg/dL POC Glucose (mg/dL) (75-99) mg/dL Plasma Lactic Acid Eugene (0.7-2.0) mmol/L Calcium (8.4-10.2) mg/dL Phosphorus (2.5-4.5) mg/dL AST 135 H (17-59) U/L ALT (21-72) U/L Alkaline Phosphatase 182 H (38-126) U/L Troponin I 0.094 H* (0.000-0.034) ng/mL Total Protein 8.5 H (6.3-8.2) g/dL 09/27/18 09/27/18 09/27/18 Range/Units 15:07 16:50 16:50 RBC 3.08 L (4.30-5.90) m/uL Hgb 8.7 L (13.0-17.5) gm/dL Hct 27.1 L (39.0-53.0) % RDW 17.9 H (11.5-15.5) % Neutrophils # (Manual) (1.3-7.7) k/uL Lymphocytes # (Manual) 0.14 L (1.0-4.8) k/uL Myelocytes # (Manual) (0) k/uL Nucleated RBCs (0-0) /100 WBC ABG pH (7.35-7.45) ABG pCO2 (35-45) mmHg ABG pO2 (83-108) mmHg ABG HCO3 (21-25) mmol/L ABG Total CO2 (19-24) mmol/L ABG O2 Saturation (94-97) % Chloride 110 H (98-107) mmol/L Carbon Dioxide 19 L (22-30) mmol/L BUN 25 H (9-20) mg/dL Creatinine (0.66-1.25) mg/dL Glucose 111 H (74-99) mg/dL POC Glucose (mg/dL) (75-99) mg/dL Plasma Lactic Acid Eugene 3.5 H* (0.7-2.0) mmol/L Calcium 7.9 L (8.4-10.2) mg/dL Phosphorus (2.5-4.5) mg/dL AST 200 H (17-59) U/L ALT 90 H (21-72) U/L Alkaline Phosphatase 146 H (38-126) U/L Troponin I (0.000-0.034) ng/mL Total Protein (6.3-8.2) g/dL 09/27/18 09/27/18 09/28/18 Range/Units 18:50 19:49 04:25 RBC (4.30-5.90) m/uL Hgb (13.0-17.5) gm/dL Hct (39.0-53.0) % RDW (11.5-15.5) % Neutrophils # (Manual) (1.3-7.7) k/uL Lymphocytes # (Manual) (1.0-4.8) k/uL Myelocytes # (Manual) (0) k/uL Nucleated RBCs (0-0) /100 WBC ABG pH 7.24 L 7.32 L (7.35-7.45) ABG pCO2 47 H 33 L (35-45) mmHg ABG pO2 291 H 119 H (83-108) mmHg ABG HCO3 20 L 17 L (21-25) mmol/L ABG Total CO2 18 L (19-24) mmol/L ABG O2 Saturation 100.0 H 98.8 H (94-97) % Chloride (98-107) mmol/L Carbon Dioxide (22-30) mmol/L BUN (9-20) mg/dL Creatinine (0.66-1.25) mg/dL Glucose (74-99) mg/dL POC Glucose (mg/dL) 113 H (75-99) mg/dL Plasma Lactic Acid Eugene (0.7-2.0) mmol/L Calcium (8.4-10.2) mg/dL Phosphorus (2.5-4.5) mg/dL AST (17-59) U/L ALT (21-72) U/L Alkaline Phosphatase (38-126) U/L Troponin I (0.000-0.034) ng/mL Total Protein (6.3-8.2) g/dL 09/28/18 09/28/18 Range/Units 04:33 04:33 RBC 2.62 L (4.30-5.90) m/uL Hgb 7.6 L (13.0-17.5) gm/dL Hct 23.6 L (39.0-53.0) % RDW 18.3 H (11.5-15.5) % Neutrophils # (Manual) (1.3-7.7) k/uL Lymphocytes # (Manual) 0.17 L (1.0-4.8) k/uL Myelocytes # (Manual) 0.11 H (0) k/uL Nucleated RBCs 1 H (0-0) /100 WBC ABG pH (7.35-7.45) ABG pCO2 (35-45) mmHg ABG pO2 (83-108) mmHg ABG HCO3 (21-25) mmol/L ABG Total CO2 (19-24) mmol/L ABG O2 Saturation (94-97) % Chloride 114 H (98-107) mmol/L Carbon Dioxide 17 L (22-30) mmol/L BUN 30 H (9-20) mg/dL Creatinine 1.41 H (0.66-1.25) mg/dL Glucose (74-99) mg/dL POC Glucose (mg/dL) (75-99) mg/dL Plasma Lactic Acid Eugene (0.7-2.0) mmol/L Calcium 7.1 L (8.4-10.2) mg/dL Phosphorus 5.5 H (2.5-4.5) mg/dL AST (17-59) U/L ALT (21-72) U/L Alkaline Phosphatase (38-126) U/L Troponin I (0.000-0.034) ng/mL Total Protein (6.3-8.2) g/dL Microbiology - Last 24 Hours (Table) 09/27/18 19:43 Sputum Culture - Preliminary Sputum Assessment and Plan (1) Ischemia, bowel Narrative/Plan: Postoperative day #1 from expiratory laparotomy and ischemic bowel resection - Continue fluid resuscitation - ICU management - Continue Pickett catheter, continue nasogastric tube decompression - Hold any feeds - Cardiology recommendations appreciated - Prognosis very guarded Current Visit: Yes Status: Acute Code(s): K55.9 - VASCULAR DISORDER OF INTESTINE, UNSPECIFIED SNOMED Code(s): 20089238
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
[2018-09-28] MEDS: PROPOFOL 1,000 MG in EMPTY BAG 1 BAG IV SCH ×2 (12:44→18:36)
--- NOTE | 2018-09-28 13:13 | P.PN ---
Subjective Progress Note Date: 09/28/18 This is a 68-year-old -[place] male patient who lives in [place] and the patient usually goes to the [facility] and [facility] for usual medical care. He came in to our emergency department because of abdominal pain. He is currently rehabilitating for substance abuse, IV drug abuse and he was in a fdc house on [facility] where he developed increased abdominal pain initially in the suprapubic area and later on his lower abdomen bilaterally more so on the right and the pain was constant and radiating to his back. He came into the emergency department and he was seen by the ED physician. He was given IV morphine for pain control. White cell count was at 15.9. A computed tomography scan of the abdomen was done that showed dilated urinary bladder in addition to a large right-sided scrotal hernia containing the cecum and the terminal ileum. There was no evidence of any bowel obstruction. No evidence of any thoracic or abdominal aortic aneurysm or dissection. The patient initially lactic acid level was 6.7. He was started on IV fluids. He was found to be in atrial fibrillation with rapid ventricular response and he was placed on a Cardizem drip at 5 mg an hour and the patient was admitted to the hospital. I had a chance to evaluate this patient this afternoon. Upon my arrival the patient was in excruciating pain. He was hurting to the point where he was unable to lay down in bed. He was trying to get himself out of the bed. I noted some bloody urine in his Pickett catheter. Abdomen was quite tense and tender and there was direct and rebound tenderness. The right scrotum was quite swollen. No bowel sounds were appreciated. The concern was an incarcerated indirect hernia, with an acute abdomen. Based on that, I immediate recall general surgery and I asked him to come and evaluate this patient in the emergency department as soon as possible for possible surgical intervention of this indirect inguinal hernia. The ultrasound of the testicle showed a grade 4 right-sided testicular microlithiasis.. The patient has noted some progressive swelling in the right scrotum over the past 3 weeks. According to him this is a new finding. No nausea. No vomiting. No chest pain. On today's evaluation of 09/28/2008 and I'm seeing this patient in follow-up. Note that I saw this patient in the emergency department and the patient had an acute abdomen. He was immediately taken to the operating room. Intraoperatively, the patient was found to have ischemic bowel beginning in the distal ileum and extensively throughout the right colon and most of the transverse colon. The bowel was also noted to be strangulated in the right inguinal canal. During the surgery, the patient was noted to be hypotensive and he was started on pressors. He was placed on Rosendo-Synephrine. He underwent a expected to laparotomy, bowel resection and ileostomy was also created. Following that the patient was brought into the intensive care unit. He was kept intubated and on mechanical ventilator. Overnight, the pressors were discontinued. He was given a total of 4 L of IV fluids and currently is on a maintenance and this patient to a bicarb infusion with a rate of 1 25 mL an hour knowing that the patient has some underlying metabolic acidosis. He remains on a mechanical ventilator. He was quite asynchronous. I switched him to a VC plus molds. His current and a tidal volume of 450 with a rate of 14 and FiO2 of 50% with a PEEP of 5. His morning blood gases showed a pH of 7.32 with a pCO2 of 33 and pO2 of 119. The fluid balance is +3.4 L over the past 12 hours. He is producing urine output. He is sedated with Diprivan is calm and comfortable. NG tube is in place. Surgical wound site is clean. Ileostomy site is viable at this point in time. He is covered with broad-spectrum antibiotics with IV Zosyn. Hemoglobin is at 7.6. There was a slight jump in the creatinine which is up to 1.41 which is expected. Objective - Vital Signs Vital signs: Vital Signs Temp 99.4 F 09/28/18 08:00 Pulse 96 09/28/18 11:00 Resp 25 H 09/28/18 11:00 BP 127/91 09/27/18 15:00 Pulse Ox 98 09/28/18 11:00 Intake & Output 09/27/18 09/28/18 09/28/18 18:59 06:59 18:59 Intake Total 2847.468 0032.000 818.75 Output Total 500 615 460 Balance 867.310 0637.000 358.75 Weight 67 kg 67 kg Intake: IV 1000 3349 800 Dextrose 5% in Water 1, 125 000 ml @ 125 mls/hr IV . Q9H12M [place] with Sodium Bicarb (1 Meq/ml) 150 ml Rx#:[id number] Magnesium Sulfate-D5w Pmx 200 1 gm In Dextrose/Water 1 100ml.bag @ 100 mls/hr IVPB Q1H [facility] Rx#: [id number] Normal saline 1000 Piperacillin-Tazobactam 3 100 100 .375 gm In Sodium Chloride 0.9% 100 ml @ 25 mls/hr IVPB ONCE STA Rx# :[id number] Sodium Chloride 0.9% 1, 2249 375 000 ml @ 125 mls/hr IV . Q8H [facility] Rx#:[id number] Intake, IV Titration 50.000 200.000 18.75 Amount Diltiazem 50 mg In Sodium 50.000 100 18.75 Chloride 0.9% 40 ml @ 5 MG/HR 5 mls/hr IV .Q10H [facility] Rx#:[id number] Propofol 1,000 mg In 100.000 Empty Bag 1 bag @ Titrate IV .Q0M COUNT INCLUDES THE [facility] Rx#: [id number] Output: Gastric Drainage 250 Urine 400 615 210 Estimated Blood Loss 100 Other: Voiding Method Indwelling Catheter Indwelling Catheter ABP, PAP, CO, CI - Last Documented Arterial Blood Pressure 120/58 - Exam Gen. appearance, comfortable sedated and intubated on a mechanical ventilator. Head exam was generally normal. There was no scleral icterus or corneal arcus. Mucous membranes were moist. Neck was supple and without jugular venous distension, thyromegaly, or carotid bruits. Carotids were easily palpable bilaterally. There was no adenopathy. The patient has an orogastric and orotracheal tube are both in place. Lungs were clear to auscultation and percussion, and with normal diaphragmatic excursion. No wheezes or rales were noted. The patient is synchronous with the mechanical ventilator. Breath sounds are equal and bilateral. Cardiac exam revealed the PMI to be normally situated and sized. The rhythm was regular and no extrasystoles were noted during several minutes of auscultation. The first and second heart sounds were normal and physiologic splitting of the second heart sound was noted. There were no murmurs, rubs, clicks, or gallops. The patient has an AICD in place. Note that the converted into a normal sinus rhythm after being in atrial fibrillation. Abdomen is soft. Bowel sounds are absent. There is midabdominal scar with the incision being dry clean and intact. The patient has also an ileostomy which is viable. No output in ileostomy bag at this point. No direct tenderness. No rebound tenderness. No guarding. The right scrotum is deflated and there is no tenderness upon palpation. Examination of the extremities revealed easily palpable radial, femoral and pedal pulses. There was no cyanosis, clubbing or edema. Pulses are diminished in lower extremities bilaterally. Examination of the skin revealed no evidence of significant rashes, suspicious appearing nevi or other concerning lesions. Neurologically the patient is sedated, comfortable while being on Diprivan. Pupils are equal and reactive to light. No focal neurological deficits. - Labs CBC & Chem 7: 09/28/18 04:33 09/28/18 04:33 Labs: Abnormal Lab Results - Last 24 Hours (Table) 09/27/18 09/27/18 09/27/18 Range/Units 15:07 15:07 15:07 RBC 3.33 L (4.30-5.90) m/uL Hgb 9.6 L (13.0-17.5) gm/dL Hct 29.7 L (39.0-53.0) % RDW 18.2 H (11.5-15.5) % Neutrophils # (Manual) 8.00 H (1.3-7.7) k/uL Lymphocytes # (Manual) 0.27 L (1.0-4.8) k/uL Myelocytes # (Manual) (0) k/uL Nucleated RBCs (0-0) /100 WBC ABG pH (7.35-7.45) ABG pCO2 (35-45) mmHg ABG pO2 (83-108) mmHg ABG HCO3 (21-25) mmol/L ABG Total CO2 (19-24) mmol/L ABG O2 Saturation (94-97) % Chloride 109 H (98-107) mmol/L Carbon Dioxide 19 L (22-30) mmol/L BUN 24 H (9-20) mg/dL Creatinine (0.66-1.25) mg/dL Glucose 110 H (74-99) mg/dL POC Glucose (mg/dL) (75-99) mg/dL Plasma Lactic Acid Eugene (0.7-2.0) mmol/L Calcium (8.4-10.2) mg/dL Phosphorus (2.5-4.5) mg/dL AST 135 H (17-59) U/L ALT (21-72) U/L Alkaline Phosphatase 182 H (38-126) U/L Troponin I 0.094 H* (0.000-0.034) ng/mL Total Protein 8.5 H (6.3-8.2) g/dL 09/27/18 09/27/18 09/27/18 Range/Units 15:07 16:50 16:50 RBC 3.08 L (4.30-5.90) m/uL Hgb 8.7 L (13.0-17.5) gm/dL Hct 27.1 L (39.0-53.0) % RDW 17.9 H (11.5-15.5) % Neutrophils # (Manual) (1.3-7.7) k/uL Lymphocytes # (Manual) 0.14 L (1.0-4.8) k/uL Myelocytes # (Manual) (0) k/uL Nucleated RBCs (0-0) /100 WBC ABG pH (7.35-7.45) ABG pCO2 (35-45) mmHg ABG pO2 (83-108) mmHg ABG HCO3 (21-25) mmol/L ABG Total CO2 (19-24) mmol/L ABG O2 Saturation (94-97) % Chloride 110 H (98-107) mmol/L Carbon Dioxide 19 L (22-30) mmol/L BUN 25 H (9-20) mg/dL Creatinine (0.66-1.25) mg/dL Glucose 111 H (74-99) mg/dL POC Glucose (mg/dL) (75-99) mg/dL Plasma Lactic Acid Eugene 3.5 H* (0.7-2.0) mmol/L Calcium 7.9 L (8.4-10.2) mg/dL Phosphorus (2.5-4.5) mg/dL AST 200 H (17-59) U/L ALT 90 H (21-72) U/L Alkaline Phosphatase 146 H (38-126) U/L Troponin I (0.000-0.034) ng/mL Total Protein (6.3-8.2) g/dL 09/27/18 09/27/18 09/28/18 Range/Units 18:50 19:49 04:25 RBC (4.30-5.90) m/uL Hgb (13.0-17.5) gm/dL Hct (39.0-53.0) % RDW (11.5-15.5) % Neutrophils # (Manual) (1.3-7.7) k/uL Lymphocytes # (Manual) (1.0-4.8) k/uL Myelocytes # (Manual) (0) k/uL Nucleated RBCs (0-0) /100 WBC ABG pH 7.24 L 7.32 L (7.35-7.45) ABG pCO2 47 H 33 L (35-45) mmHg ABG pO2 291 H 119 H (83-108) mmHg ABG HCO3 20 L 17 L (21-25) mmol/L ABG Total CO2 18 L (19-24) mmol/L ABG O2 Saturation 100.0 H 98.8 H (94-97) % Chloride (98-107) mmol/L Carbon Dioxide (22-30) mmol/L BUN (9-20) mg/dL Creatinine (0.66-1.25) mg/dL Glucose (74-99) mg/dL POC Glucose (mg/dL) 113 H (75-99) mg/dL Plasma Lactic Acid Eugene (0.7-2.0) mmol/L Calcium (8.4-10.2) mg/dL Phosphorus (2.5-4.5) mg/dL AST (17-59) U/L ALT (21-72) U/L Alkaline Phosphatase (38-126) U/L Troponin I (0.000-0.034) ng/mL Total Protein (6.3-8.2) g/dL 09/28/18 09/28/18 Range/Units 04:33 04:33 RBC 2.62 L (4.30-5.90) m/uL Hgb 7.6 L (13.0-17.5) gm/dL Hct 23.6 L (39.0-53.0) % RDW 18.3 H (11.5-15.5) % Neutrophils # (Manual) (1.3-7.7) k/uL Lymphocytes # (Manual) 0.17 L (1.0-4.8) k/uL Myelocytes # (Manual) 0.11 H (0) k/uL Nucleated RBCs 1 H (0-0) /100 WBC ABG pH (7.35-7.45) ABG pCO2 (35-45) mmHg ABG pO2 (83-108) mmHg ABG HCO3 (21-25) mmol/L ABG Total CO2 (19-24) mmol/L ABG O2 Saturation (94-97) % Chloride 114 H (98-107) mmol/L Carbon Dioxide 17 L (22-30) mmol/L BUN 30 H (9-20) mg/dL Creatinine 1.41 H (0.66-1.25) mg/dL Glucose (74-99) mg/dL POC Glucose (mg/dL) (75-99) mg/dL Plasma Lactic Acid Eugene (0.7-2.0) mmol/L Calcium 7.1 L (8.4-10.2) mg/dL Phosphorus 5.5 H (2.5-4.5) mg/dL AST (17-59) U/L ALT (21-72) U/L Alkaline Phosphatase (38-126) U/L Troponin I (0.000-0.034) ng/mL Total Protein (6.3-8.2) g/dL Microbiology - Last 24 Hours (Table) 09/27/18 19:43 Sputum Culture - Preliminary Sputum Assessment and Plan Plan: Assessment 1 expiratory laparotomy, extensive bowel resection involving the distal ileum and a right colon and transverse colon with evidence of bowel strangulation in the right inguinal canal and suspicion for ischemic bowel probably related to underlying chronic atrial fibrillation. In any rate, the patient underwent bowel resection and diverticular ileostomy following an expiratory laparotomy. The patient is postop day #1. Hemodynamically stable. Currently intubated on a mechanical ventilator. 2 respiratory failure, the patient will be kept intubated on a mechanical ventilator, not ready for any weaning at this point in time. Blood gases was reviewed and there is a component of metabolic acidosis and the necessary vent changes and fluid management was done. Patient was started on bicarb infusion. 3 acute lactic acidosis, improving 4 acute leukocytosis 4 mild elevation of the amylase, secondary to above 5 HIV, on treatment 6 coronary artery disease 7. Peripheral Vascular disease 8 previous history of AICD placement 9 chronic atrial fibrillation, current rhythm is back to sinus and the patient is converted to sinus rhythm and anticoagulation was started with the next 24 hours 10 acute kidney injury 11 IVDA, undergoing rehabilitation PLAN We'll see was this patient to a bicarb infusion site of 125 mL an hour. Monitor the blood gases and acid base status. Necessary vent changes were done. The patient will be kept sedated for now. No weaning trials as the patient is not ready for any further weaning. Keep him sedated for now. Continued IV antibiotics. Keep nothing by mouth for now. Monitor surgical wound site. Monitor hemodynamics. Monitor urine output. Restart the patient on anticoagulation with the next 24 hours and the patient was started on IV heparin and this has been cleared by the surgical team. We'll check CD4 counts. We'll keep in ICU for now. May start to consider weaning as of tomorrow if condition remains stable. Case was discussed with general surgery. We'll continue to follow. Critically care evaluate was done and more than 30 minutes. Time with Patient: Greater than 30
--- NOTE | 2018-09-28 16:36 | P.PN ---
Subjective This is a pleasant 68 years old male with past medical history of hypertension and no much home medication presents because of abdominal pain In the emergency room he was afebrile, tachycardic with heart rate range between 110-144. Tachypneic with heart rate 25 blood pressure 137/88. Labs reviewed showing WBC 13.9 K, hemoglobin 9.1, platelets 246. INR 1.0. Sodium 141. Potassium 3.2. High lactic acid 6.7, coming down to 3.1, with elevated AST at 72. With normal ALT. Troponin is elevated at 0.05 and 0.08. Amylase is high but lipase within normal at 158. Urinalysis showing moderate blood. Chest x-ray showed cardiomegaly with no active cardiopulmonary disease. The patient was shown mild changes of congestive CHF. CT of the abdomen and pelvis showing right-sided inguinal and scrotal hernia contents the cecum and terminal ileum. But don't us obstruction. However in the abdominal examination patient has significant abdominal tenderness and scrotal tenderness with his swelling. This was discussed with the surgical call Dr. Cline and the plan was to take him to the surgery for his acute abdomen and after that may be to the intensive care unit. I spoke with the patient and he able to do the surgery also I spoke with the patient daughter upon his request Mrs. Pederson at [phone]. And updated her with her father situation and all her rashes were answered to her satisfaction. 09/28/2018 Patient is status post exploratory laparotomy with action and ileostomy mostly secondary to incarcerated hernia. Is currently in the ICU intubated and sedated. With hematuria in the Pickett catheter. ALLERGY consultation is appreciated most likely this is secondary to Pickett catheter area surgery R following the patient as well as critical care unit. Cardiology also on the case. Patient remains on sodium bicarb, Protonix, IV antibiotics with Zosyn. His W Blas 5.6K. Hemoglobin 7.6. Sodium 140. Creatinine 1.4. I called his daughter Mrs. Pederson at [phone] and left a message to call me back. Objective - Vital Signs Vital signs: Vital Signs Temp 99.4 F 09/28/18 08:00 Pulse 96 09/28/18 11:00 Resp 25 H 09/28/18 11:00 BP 127/91 09/27/18 15:00 Pulse Ox 98 09/28/18 11:00 Intake & Output 09/27/18 09/28/18 09/28/18 18:59 06:59 18:59 Intake Total 4147.464 3621.132 818.75 Output Total 500 615 460 Balance 734.806 8470.132 358.75 Weight 67 kg 67 kg Intake: IV 1000 3349 800 Dextrose 5% in Water 1, 125 000 ml @ 125 mls/hr IV . Q9H12M [place] with Sodium Bicarb (1 Meq/ml) 150 ml Rx#:[id number] Magnesium Sulfate-D5w Pmx 200 1 gm In Dextrose/Water 1 100ml.bag @ 100 mls/hr IVPB Q1H [facility] Rx#: [id number] Normal saline 1000 Piperacillin-Tazobactam 3 100 100 .375 gm In Sodium Chloride 0.9% 100 ml @ 25 mls/hr IVPB ONCE STA Rx# :[id number] Sodium Chloride 0.9% 1, 2249 375 000 ml @ 125 mls/hr IV . Q8H [facility] Rx#:[id number] Intake, IV Titration 50.000 161.132 18.75 Amount Diltiazem 50 mg In Sodium 50.000 100 18.75 Chloride 0.9% 40 ml @ 5 MG/HR 5 mls/hr IV .Q10H [facility] Rx#:[id number] Propofol 1,000 mg In 61.132 Empty Bag 1 bag @ Titrate IV .Q0M [place] Rx#: [id number] Output: Gastric Drainage 250 Urine 400 615 210 Estimated Blood Loss 100 Other: Voiding Method Indwelling Catheter Indwelling Catheter ABP, PAP, CO, CI - Last Documented Arterial Blood Pressure 120/58 - Exam GENERAL: The patient is intubated and sedated, not in any acute distress. Well developed, well nourished. HEENT: Pupils are round and equally reacting to light. EOMI. No scleral icterus. No conjunctival pallor. Normocephalic, atraumatic. No pharyngeal erythema. No thyromegaly. CARDIOVASCULAR: S1 and S2 present. No murmurs, rubs, or gallops. PULMONARY: Chest is clear to auscultation, no wheezing or crackles. -ABDOMEN: Soft, incision is closed with no surrounding cellulitis or discharge.. No palpable organomegaly. Pickett catheter in place MUSCULOSKELETAL: No joint swelling or deformity. EXTREMITIES: No cyanosis, clubbing, or pedal edema. NEUROLOGICAL: Gross neurological examination did not reveal any focal deficits. SKIN: No rashes - Labs CBC & Chem 7: 09/28/18 04:33 09/28/18 04:33 Labs: Abnormal Lab Results - Last 24 Hours (Table) 09/27/18 09/27/18 09/27/18 Range/Units 15:07 15:07 15:07 RBC 3.33 L (4.30-5.90) m/uL Hgb 9.6 L (13.0-17.5) gm/dL Hct 29.7 L (39.0-53.0) % RDW 18.2 H (11.5-15.5) % Neutrophils # (Manual) 8.00 H (1.3-7.7) k/uL Lymphocytes # (Manual) 0.27 L (1.0-4.8) k/uL Myelocytes # (Manual) (0) k/uL Nucleated RBCs (0-0) /100 WBC ABG pH (7.35-7.45) ABG pCO2 (35-45) mmHg ABG pO2 (83-108) mmHg ABG HCO3 (21-25) mmol/L ABG Total CO2 (19-24) mmol/L ABG O2 Saturation (94-97) % Chloride 109 H (98-107) mmol/L Carbon Dioxide 19 L (22-30) mmol/L BUN 24 H (9-20) mg/dL Creatinine (0.66-1.25) mg/dL Glucose 110 H (74-99) mg/dL POC Glucose (mg/dL) (75-99) mg/dL Plasma Lactic Acid Eugene (0.7-2.0) mmol/L Calcium (8.4-10.2) mg/dL Phosphorus (2.5-4.5) mg/dL AST 135 H (17-59) U/L ALT (21-72) U/L Alkaline Phosphatase 182 H (38-126) U/L Troponin I 0.094 H* (0.000-0.034) ng/mL Total Protein 8.5 H (6.3-8.2) g/dL 09/27/18 09/27/18 09/27/18 Range/Units 15:07 16:50 16:50 RBC 3.08 L (4.30-5.90) m/uL Hgb 8.7 L (13.0-17.5) gm/dL Hct 27.1 L (39.0-53.0) % RDW 17.9 H (11.5-15.5) % Neutrophils # (Manual) (1.3-7.7) k/uL Lymphocytes # (Manual) 0.14 L (1.0-4.8) k/uL Myelocytes # (Manual) (0) k/uL Nucleated RBCs (0-0) /100 WBC ABG pH (7.35-7.45) ABG pCO2 (35-45) mmHg ABG pO2 (83-108) mmHg ABG HCO3 (21-25) mmol/L ABG Total CO2 (19-24) mmol/L ABG O2 Saturation (94-97) % Chloride 110 H (98-107) mmol/L Carbon Dioxide 19 L (22-30) mmol/L BUN 25 H (9-20) mg/dL Creatinine (0.66-1.25) mg/dL Glucose 111 H (74-99) mg/dL POC Glucose (mg/dL) (75-99) mg/dL Plasma Lactic Acid Eugene 3.5 H* (0.7-2.0) mmol/L Calcium 7.9 L (8.4-10.2) mg/dL Phosphorus (2.5-4.5) mg/dL AST 200 H (17-59) U/L ALT 90 H (21-72) U/L Alkaline Phosphatase 146 H (38-126) U/L Troponin I (0.000-0.034) ng/mL Total Protein (6.3-8.2) g/dL 09/27/18 09/27/18 09/28/18 Range/Units 18:50 19:49 04:25 RBC (4.30-5.90) m/uL Hgb (13.0-17.5) gm/dL Hct (39.0-53.0) % RDW (11.5-15.5) % Neutrophils # (Manual) (1.3-7.7) k/uL Lymphocytes # (Manual) (1.0-4.8) k/uL Myelocytes # (Manual) (0) k/uL Nucleated RBCs (0-0) /100 WBC ABG pH 7.24 L 7.32 L (7.35-7.45) ABG pCO2 47 H 33 L (35-45) mmHg ABG pO2 291 H 119 H (83-108) mmHg ABG HCO3 20 L 17 L (21-25) mmol/L ABG Total CO2 18 L (19-24) mmol/L ABG O2 Saturation 100.0 H 98.8 H (94-97) % Chloride (98-107) mmol/L Carbon Dioxide (22-30) mmol/L BUN (9-20) mg/dL Creatinine (0.66-1.25) mg/dL Glucose (74-99) mg/dL POC Glucose (mg/dL) 113 H (75-99) mg/dL Plasma Lactic Acid Eugene (0.7-2.0) mmol/L Calcium (8.4-10.2) mg/dL Phosphorus (2.5-4.5) mg/dL AST (17-59) U/L ALT (21-72) U/L Alkaline Phosphatase (38-126) U/L Troponin I (0.000-0.034) ng/mL Total Protein (6.3-8.2) g/dL 09/28/18 09/28/18 Range/Units 04:33 04:33 RBC 2.62 L (4.30-5.90) m/uL Hgb 7.6 L (13.0-17.5) gm/dL Hct 23.6 L (39.0-53.0) % RDW 18.3 H (11.5-15.5) % Neutrophils # (Manual) (1.3-7.7) k/uL Lymphocytes # (Manual) 0.17 L (1.0-4.8) k/uL Myelocytes # (Manual) 0.11 H (0) k/uL Nucleated RBCs 1 H (0-0) /100 WBC ABG pH (7.35-7.45) ABG pCO2 (35-45) mmHg ABG pO2 (83-108) mmHg ABG HCO3 (21-25) mmol/L ABG Total CO2 (19-24) mmol/L ABG O2 Saturation (94-97) % Chloride 114 H (98-107) mmol/L Carbon Dioxide 17 L (22-30) mmol/L BUN 30 H (9-20) mg/dL Creatinine 1.41 H (0.66-1.25) mg/dL Glucose (74-99) mg/dL POC Glucose (mg/dL) (75-99) mg/dL Plasma Lactic Acid Eugene (0.7-2.0) mmol/L Calcium 7.1 L (8.4-10.2) mg/dL Phosphorus 5.5 H (2.5-4.5) mg/dL AST (17-59) U/L ALT (21-72) U/L Alkaline Phosphatase (38-126) U/L Troponin I (0.000-0.034) ng/mL Total Protein (6.3-8.2) g/dL Microbiology - Last 24 Hours (Table) 09/27/18 19:43 Sputum Culture - Preliminary Sputum Assessment and Plan Assessment: Incarcerated right inguinal hernia, status post exploratory laparotomy, bowel resection and ileostomy Anemia Elevated Lactic acid Elevated troponin Hematuria Scrotal swelling, ultra-sound showing calcification. Plan: This is a pleasant 68 years old male who presents with acute abdomen secondary to incarcerated hernia. Patient status surgical resection and ileostomy. Several consults are following the patient including surgery, neurology, critical care/pulmonary, cardiology. Continue with antibiotics. Continue with IV fluids. NG tube. Nothing by mouth.Labs and medication were reviewed. After surgery patient might be going to the intensive care unit. Continue same treatment. Continue with symptomatic treatment. Resume home medication. Monitor lytes and vitals. DVT and GI prophylaxis. Further recommendations of the clinical course of the patient Prognosis is guarded
[2018-09-29] MEDS: PIPERACILLIN-TAZOBACTAM 3.375 GM in SODIUM CHLORIDE 0.9% 100 ML IVPB SCH ×4 (00:41→23:17)
[2018-09-29] MEDS: CHLORHEXIDINE GLUCONATE 15 ML CUP MUCOUS MEM SCH ×3 (00:41→22:19)
[2018-09-29 05:19] LABS: ABG Base Excess -0.2 mmol/L; ABG HCO3 25 mmol/L (21-25); ABG Oxygen Saturation 99.3 % (94-97); ABG PCO2 40 mmHg (35-45); ABG PO2 125 mmHg (83-108); ABG TCO2 26 mmol/L (19-24)
[2018-09-29 06:00] LABS: Anisocytosis Slight; HCT 21.5 % (39.0-53.0); HGB 7.3 gm/dL (13.0-17.5); MCHC 33.8 g/dL (31.0-37.0); MCV 88.6 fL (80.0-100.0); Mean Platelet Volume 9.9; Platelet Count 137 k/uL (150-450); Poikilocytosis Slight; RBC 2.43 m/uL (4.30-5.90); RDW 18.6 % (11.5-15.5); WBC 8.8 k/uL (3.8-10.6)
[2018-09-29 06:28] LABS: Calcium 6.8 mg/dL (8.4-10.2); Phosphorus 5.1 mg/dL (2.5-4.5); Potassium 3.7 mmol/L (3.5-5.1)
[2018-09-29 06:51] LABS: Magnesium 2.4 mg/dL (1.6-2.3)
[2018-09-29 07:05] LABS: Band Neutrophils % 14 %; Basophils # (M) 0.09 k/uL (0-0.2); Lymphocytes # (M) 0.09 k/uL (1.0-4.8); Metamyelocytes # (M) 0.26 k/uL (0); Metamyelocytes % 3 %; Monocytes # (M) 0.44 k/uL (0-1.0); Myelocytes # (M) 0.18 k/uL (0); Myelocytes % 2 %; Neutrophils % (M) 76 %; Nucleated Red Blood Cells 0 /100 WBC (0-0); Total Cells Counted 200
[2018-09-29 07:06] LABS: Toxic Granulation Present
[2018-09-29 07:07] LABS: Dohle Bodies Present
[2018-09-29] MEDS: DEXTROSE 5% IN WATER 1,000 ML with SODIUM BICARB (1 MEQ/ML) 150 ML IV SCH ×2 (07:10→23:35)
[2018-09-29] MEDS: DILTIAZEM 50 MG in SODIUM CHLORIDE 0.9% 40 ML IV SCH ×3 (07:11→23:28)
[2018-09-29] MEDS ORDERED: POTASSIUM BICARBONATE/CIT AC 20 MEQ TABLET.EFF NG-TUBE SCH (08:00)
[2018-09-29] MEDS: PANTOPRAZOLE 40 MG/10 ML VIAL IVP SCH (08:11)
[2018-09-29] MEDS: PROPOFOL 1,000 MG in EMPTY BAG 1 BAG IV SCH ×3 (08:11→23:04)
[2018-09-29] MEDS: POTASSIUM CHLORIDE 10 MEQ in WATER FOR INJECTION 1 100ML.BAG IVPB SCH ×2 (08:12→10:10)
[2018-09-29] MEDS ORDERED: HEPARIN SODIUM,PORCINE 5,000 UNIT/ML 1 ML VIAL IV PRN (08:47)
--- NOTE | 2018-09-29 08:52 | XR ---
EXAMINATION TYPE: XR chest 1V portable DATE OF EXAM: 09/29/2018 COMPARISON: 09/28/2018 INDICATION: Tube placement, difficulty breathing TECHNIQUE: Single frontal view of the chest is obtained. FINDINGS: The heart size is mildly prominent. The pulmonary vasculature is normal. Bibasilar infiltrates are present greater on the right. Subsegmental atelectasis is suspected. Endotracheal tube tip is above the danna. Nasogastric tube transverses the thorax the tip in the lef t upper quadrant of the abdomen. There may be a central venous catheter at the right apex, stable from prior study. No pneumothorax is evident. IMPRESSION: 1. Mild stable bibasilar infiltrates greater on the right. 2. Lines and catheters discussed above.
[2018-09-29 09:18] LABS: INR 1.3 (<1.2); Partial Thromboplastin Time 24.9 sec (22.0-30.0); Prothrombin Time 12.9 sec (9.0-12.0)
[2018-09-29] MEDS: HEPARIN SOD,PORK IN 0.45% NACL 25,000 UNIT in 0.45% NACL 1 500ML.BAG IV SCH (10:08)
[2018-09-29 10:17] LABS: Hemoglobin A1C 6.2 % (4.0-6.0)
--- NOTE | 2018-09-29 10:22 | P.PN ---
Subjective Progress Note Date: 09/29/18 Patient seen and examined at bedside. Continued ventilation. Sedation has been held this morning, patient is still not responding appropriately. Continued abdominal distention. No output from the ostomy. Making appropriate urine. Objective - Vital Signs Vital signs: Vital Signs Temp 97.5 F L 09/29/18 08:00 Pulse 89 09/29/18 08:00 Resp 21 09/29/18 08:00 BP 127/91 09/27/18 15:00 Pulse Ox 98 09/29/18 08:00 Intake & Output 09/28/18 09/29/18 09/29/18 18:59 06:59 18:59 Intake Total 2128.327 9230 250 Output Total 770 715 95 Balance 9884.214 1452 155 Weight 66.7 kg 66.7 kg Intake: IV 1775 1600 250 Dextrose 5% in Water 1, 1000 1500 250 000 ml @ 125 mls/hr IV . Q9H12M [place] with Sodium Bicarb (1 Meq/ml) 150 ml Rx#:[id number] Magnesium Sulfate-D5w Pmx 200 1 gm In Dextrose/Water 1 100ml.bag @ 100 mls/hr IVPB Q1H [facility] Rx#: [id number] Piperacillin-Tazobactam 3 200 .375 gm In Sodium Chloride 0.9% 100 ml @ 25 mls/hr IVPB ONCE [facility] Rx# :[id number] Piperacillin-Tazobactam 3 100 .375 gm In Sodium Chloride 0.9% 100 ml @ 25 mls/hr IVPB Q8HR [facility] Rx# :[id number] Sodium Chloride 0.9% 1, 375 000 ml @ 125 mls/hr IV . Q8H [facility] Rx#:[id number] Intake, IV Titration 129.102 150 Amount Diltiazem 50 mg In Sodium 48.083 50 Chloride 0.9% 40 ml @ 5 MG/HR 5 mls/hr IV .Q10H [facility] Rx#:[id number] Propofol 1,000 mg In 81.019 100 Empty Bag 1 bag @ Titrate IV .Q0M [facility] Rx#: [id number] Output: Gastric Drainage 250 150 Urine 520 565 95 Other: Voiding Method Indwelling Catheter Indwelling Catheter ABP, PAP, CO, CI - Last Documented Arterial Blood Pressure 124/58 - Constitutional Constitutional Comment(s): Vented, sedated - Respiratory Details: No difficulty on ventilator - Gastrointestinal Gastrointestinal Comment(s): Distended, midline incision clean, dry and intact, ileostomy site is a dark red color with no output - Labs CBC & Chem 7: 09/29/18 05:53 09/29/18 05:53 Labs: Abnormal Lab Results - Last 24 Hours (Table) 09/27/18 09/29/18 09/29/18 Range/Units 16:50 05:14 05:53 RBC 2.43 L (4.30-5.90) m/uL Hgb 7.3 L (13.0-17.5) gm/dL Hct 21.5 L (39.0-53.0) % RDW 18.6 H (11.5-15.5) % Plt Count 137 L (150-450) k/uL Neutrophils # (Manual) 7.90 H (1.3-7.7) k/uL Lymphocytes # (Manual) 0.09 L (1.0-4.8) k/uL Metamyelocytes # (Man) 0.26 H (0) k/uL Myelocytes # (Manual) 0.18 H (0) k/uL PT (9.0-12.0) sec INR (<1.2) ABG pO2 125 H (83-108) mmHg ABG Total CO2 26 H (19-24) mmol/L ABG O2 Saturation 99.3 H (94-97) % BUN (9-20) mg/dL Creatinine (0.66-1.25) mg/dL Glucose (74-99) mg/dL Hemoglobin A1c 6.2 H (4.0-6.0) % Calcium (8.4-10.2) mg/dL Phosphorus (2.5-4.5) mg/dL Magnesium (1.6-2.3) mg/dL 09/29/18 09/29/18 Range/Units 05:53 08:51 RBC (4.30-5.90) m/uL Hgb (13.0-17.5) gm/dL Hct (39.0-53.0) % RDW (11.5-15.5) % Plt Count (150-450) k/uL Neutrophils # (Manual) (1.3-7.7) k/uL Lymphocytes # (Manual) (1.0-4.8) k/uL Metamyelocytes # (Man) (0) k/uL Myelocytes # (Manual) (0) k/uL PT 12.9 H (9.0-12.0) sec INR 1.3 H (<1.2) ABG pO2 (83-108) mmHg ABG Total CO2 (19-24) mmol/L ABG O2 Saturation (94-97) % BUN 46 H (9-20) mg/dL Creatinine 1.71 H (0.66-1.25) mg/dL Glucose 150 H (74-99) mg/dL Hemoglobin A1c (4.0-6.0) % Calcium 6.8 L (8.4-10.2) mg/dL Phosphorus 5.1 H (2.5-4.5) mg/dL Magnesium 2.4 H (1.6-2.3) mg/dL Microbiology - Last 24 Hours (Table) 09/27/18 19:43 Gram Stain - Preliminary Sputum Sputum Culture - Preliminary Assessment and Plan (1) Ischemia, bowel Narrative/Plan: Postoperative day #2 from expiratory laparotomy and ischemic bowel resection - ICU management, vent management, sedation management - Continue Pickett catheter, continue nasogastric tube decompression - Hold any feeds, okay to begin parent Shahram nutrition - Okay to begin anticoagulation - Cardiology recommendations appreciated - Prognosis very guarded Current Visit: Yes Status: Acute Code(s): K55.9 - VASCULAR DISORDER OF INTESTINE, UNSPECIFIED SNOMED Code(s): 94055906
[2018-09-29] MEDS: MORPHINE SULFATE 4 MG/ML SYRINGE IV PRN (10:49)
--- NOTE | 2018-09-29 12:15 | P.PN ---
Subjective Progress Note Date: 09/29/18 Principal diagnosis: Status post exploratory laparotomy and ischemic bowel resection. Postoperative day #2. This is a 68-year-old -[place] male patient who lives in [place] and the patient usually goes to the [facility] and [facility] for usual medical care. He came in to our emergency department because of abdominal pain. He is currently rehabilitating for substance abuse, IV drug abuse and he was in a prison house on [facility] where he developed increased abdominal pain initially in the suprapubic area and later on his lower abdomen bilaterally more so on the right and the pain was constant and radiating to his back. He came into the emergency department and he was seen by the ED physician. He was given IV morphine for pain control. White cell count was at 15.9. A computed tomography scan of the abdomen was done that showed dilated urinary bladder in addition to a large right-sided scrotal hernia containing the cecum and the terminal ileum. There was no evidence of any bowel obstruction. No evidence of any thoracic or abdominal aortic aneurysm or dissection. The patient initially lactic acid level was 6.7. He was started on IV fluids. He was found to be in atrial fibrillation with rapid ventricular response and he was placed on a Cardizem drip at 5 mg an hour and the patient was admitted to the hospital. I had a chance to evaluate this patient this afternoon. Upon my arrival the patient was in excruciating pain. He was hurting to the point where he was unable to lay down in bed. He was trying to get himself out of the bed. I noted some bloody urine in his Pickett catheter. Abdomen was quite tense and tender and there was direct and rebound tenderness. The right scrotum was quite swollen. No bowel sounds were appreciated. The concern was an incarcerated indirect hernia, with an acute abdomen. Based on that, I immediate recall general surgery and I asked him to come and evaluate this patient in the emergency department as soon as possible for possible surgical intervention of this indirect inguinal hernia. The ultrasound of the testicle showed a grade 4 right-sided testicular microlithiasis.. The patient has noted some progressive swelling in the right scrotum over the past 3 weeks. According to him this is a new finding. No nausea. No vomiting. No chest pain. On today's evaluation of 09/28/2008 and I'm seeing this patient in follow-up. Note that I saw this patient in the emergency department and the patient had an acute abdomen. He was immediately taken to the operating room. Intraoperatively, the patient was found to have ischemic bowel beginning in the distal ileum and extensively throughout the right colon and most of the transverse colon. The bowel was also noted to be strangulated in the right inguinal canal. During the surgery, the patient was noted to be hypotensive and he was started on pressors. He was placed on Rosendo-Synephrine. He underwent a expected to laparotomy, bowel resection and ileostomy was also created. Following that the patient was brought into the intensive care unit. He was kept intubated and on mechanical ventilator. Overnight, the pressors were discontinued. He was given a total of 4 L of IV fluids and currently is on a maintenance and this patient to a bicarb infusion with a rate of 1 25 mL an hour knowing that the patient has some underlying metabolic acidosis. He remains on a mechanical ventilator. He was quite asynchronous. I switched him to a VC plus molds. His current and a tidal volume of 450 with a rate of 14 and FiO2 of 50% with a PEEP of 5. His morning blood gases showed a pH of 7.32 with a pCO2 of 33 and pO2 of 119. The fluid balance is +3.4 L over the past 12 hours. He is producing urine output. He is sedated with Diprivan is calm and comfortable. NG tube is in place. Surgical wound site is clean. Ileostomy site is viable at this point in time. He is covered with broad-spectrum antibiotics with IV Zosyn. Hemoglobin is at 7.6. There was a slight jump in the creatinine which is up to 1.41 which is expected. On 09/29/2018, patient was evaluated in the ICU today, he is status post exploratory laparotomy and resection of what turned out to be an ischemic bowel. Patient was found to have ischemic bowel beginning in the distal ileum and extensively through the right colon and most of the transverse colon. He had a strangulated right inguinal hernia. During the surgery he was hypotensive requiring pressors and fluids, he was also placed on Rosendo- Synephrine. Presently in the ICU, remains on mechanical ventilation, his ventilator settings are basically the same tidal volume is 450, assist control rate of 14 of 5 and FiO2 is down to 40% today. ABG this morning showed a pO2 of 125 pCO2 of 40 pH of 7.40, he was still on a bicarb drip at 25 mL per hour, and I cut it down to 65 mL per hour. CBC was noted, WBC count is 8.8 hemoglobin is 7.3. Renal functioning is a bit worse, although he has a decent urine output, BUN is 46 creatinine is 1.71. Clearly the patient developed some acute kidney injury. Chest x-ray was reviewed, endotracheal tube seems to be in the proper position. There is evidence of bibasilar infiltrates, right more so than left. Patient remains on broad-spectrum antibiotics. He is presently on Zosyn. The rise in creatinine is expected considering his presentation. Patient is sedated, however I plan to withhold propofol, assess mental status, and possibly consider a weaning trial if possible. Objective - Vital Signs Vital signs: Vital Signs Temp 97.5 F L 09/29/18 08:00 Pulse 94 09/29/18 11:00 Resp 19 09/29/18 11:00 BP 127/91 09/27/18 15:00 Pulse Ox 97 09/29/18 11:27 Intake & Output 09/28/18 09/29/18 09/29/18 18:59 06:59 18:59 Intake Total 3617.751 1586 611.278 Output Total 770 715 220 Balance 7870.942 6637 391.278 Weight 66.7 kg 66.7 kg Intake: IV 1775 1600 600 Dextrose 5% in Water 1, 1000 1500 400 000 ml @ 75 mls/hr IV . [id number] [facility] with Sodium Bicarb (1 Meq/ml) 150 ml Rx#:[id number] Magnesium Sulfate-D5w Pmx 200 1 gm In Dextrose/Water 1 100ml.bag @ 100 mls/hr IVPB Q1H [facility] Rx#: [id number] Piperacillin-Tazobactam 3 200 .375 gm In Sodium Chloride 0.9% 100 ml @ 25 mls/hr IVPB ONCE [facility] Rx# :[id number] Piperacillin-Tazobactam 3 100 .375 gm In Sodium Chloride 0.9% 100 ml @ 25 mls/hr IVPB Q8HR [facility] Rx# :[id number] Potassium Chloride 10 meq 200 In Water For Injection 1 100ml.bag @ 100 mls/hr IVPB Q1H [facility] Rx#: [id number] Sodium Chloride 0.9% 1, 375 000 ml @ 125 mls/hr IV . Q8H [facility] Rx#:[id number] Intake, IV Titration 129.102 150 11.278 Amount Diltiazem 50 mg In Sodium 48.083 50 Chloride 0.9% 40 ml @ 5 MG/HR 5 mls/hr IV .Q10H [facility] Rx#:[id number] Propofol 1,000 mg In 81.019 100 11.278 Empty Bag 1 bag @ Titrate IV .Q0M [facility] Rx#: [id number] Output: Gastric Drainage 250 150 Urine 520 565 220 Other: Voiding Method Indwelling Catheter Indwelling Catheter Indwelling Catheter ABP, PAP, CO, CI - Last Documented Arterial Blood Pressure 119/56 - Exam Physical Exam: Revealed a 68-year-old black male on mechanical ventilation, sedated, in no distress. Head: Atraumatic, normocephalic, HEENT: PERRLA, EOMI, moist mucous membranes. [Neck is supple.] [No neck masses. ] [No thyromegaly.] [No JVD.] Chest: [Crackles and rhonchi bilaterally especially at the bases, endotracheal tube is intact..] Cardiac Exam: [Normal S1 and S2, no S3 gallop, no murmur.] Abdomen: [Surgical wound is clean, ileostomy bag was noted, seems to be relatively empty, ileostomy seems viable, but there is dark blood noted in the bag/minimal amount. No rebound, no tenderness, diminished bowel sounds. Extremities: [No clubbing, no edema, no cyanosis.] Neurological Exam: Cannot be assessed, patient is sedated, on propofol. Psychiatric: Could not be assessed patient remains sedated on propofol. Skin: Surgical site seems to be clean and dry. - Labs CBC & Chem 7: 09/29/18 05:53 09/29/18 05:53 Labs: Abnormal Lab Results - Last 24 Hours (Table) 09/27/18 09/29/18 09/29/18 Range/Units 16:50 05:14 05:53 RBC 2.43 L (4.30-5.90) m/uL Hgb 7.3 L (13.0-17.5) gm/dL Hct 21.5 L (39.0-53.0) % RDW 18.6 H (11.5-15.5) % Plt Count 137 L (150-450) k/uL Neutrophils # (Manual) 7.90 H (1.3-7.7) k/uL Lymphocytes # (Manual) 0.09 L (1.0-4.8) k/uL Metamyelocytes # (Man) 0.26 H (0) k/uL Myelocytes # (Manual) 0.18 H (0) k/uL PT (9.0-12.0) sec INR (<1.2) ABG pO2 125 H (83-108) mmHg ABG Total CO2 26 H (19-24) mmol/L ABG O2 Saturation 99.3 H (94-97) % BUN (9-20) mg/dL Creatinine (0.66-1.25) mg/dL Glucose (74-99) mg/dL Hemoglobin A1c 6.2 H (4.0-6.0) % Calcium (8.4-10.2) mg/dL Phosphorus (2.5-4.5) mg/dL Magnesium (1.6-2.3) mg/dL Triglycerides (<150) mg/dL 09/29/18 09/29/18 Range/Units 05:53 08:51 RBC (4.30-5.90) m/uL Hgb (13.0-17.5) gm/dL Hct (39.0-53.0) % RDW (11.5-15.5) % Plt Count (150-450) k/uL Neutrophils # (Manual) (1.3-7.7) k/uL Lymphocytes # (Manual) (1.0-4.8) k/uL Metamyelocytes # (Man) (0) k/uL Myelocytes # (Manual) (0) k/uL PT 12.9 H (9.0-12.0) sec INR 1.3 H (<1.2) ABG pO2 (83-108) mmHg ABG Total CO2 (19-24) mmol/L ABG O2 Saturation (94-97) % BUN 46 H (9-20) mg/dL Creatinine 1.71 H (0.66-1.25) mg/dL Glucose 150 H (74-99) mg/dL Hemoglobin A1c (4.0-6.0) % Calcium 6.8 L (8.4-10.2) mg/dL Phosphorus 5.1 H (2.5-4.5) mg/dL Magnesium 2.4 H (1.6-2.3) mg/dL Triglycerides 383 H (<150) mg/dL Microbiology - Last 24 Hours (Table) 09/27/18 19:43 Gram Stain - Preliminary Sputum Sputum Culture - Preliminary Assessment and Plan Assessment: Impression: 1 status post exploratory laparotomy, and resection of ischemic bowel secondary to strangulated right inguinal hernia and chronic atrial fibrillation. Patient is status post ileostomy postoperative day #2. 2 postoperative respiratory failure, expected, considering the extensiveness of the ischemic bowel and considering the presentation. Patient had profound metabolic acidosis and he remains on bicarb drip which is being tapered down and likely discontinued. 3 acute kidney injury secondary to hypotension secondary to abdominal sepsis. Possible septic shock on presentation requiring pressors and fluid boluses in the operating room. 4 multiple comorbidities including HIV, on treatment, peripheral vessel occlusive disease, chronic atrial fibrillation, previous AICD placement for cardiomyopathy, history of IV drug abuse, undergoing rehabilitation. Acute lactic acidosis on presentation secondary to ischemic bowel and acute leukocytosis secondary to bowel ischemia. Recommendation: Continue present supportive care measures including ventilatory support, nutritional support patient will likely be started on TPN, continue bicarb however lower rate, continue to monitor renal status, patient obviously developed acute kidney injury which is expected considering his presentation of bowel ischemia and hypotension requiring pressors on presentation. Today I plan to give the patient a weaning trial, however I have to assess mental status off propofol before that could be initiated. We'll discuss his condition with the different consultants on the case. Prognosis is definitely guarded. We'll continue to follow. Critical care time is 40 minutes. Time with Patient: Greater than 30
[2018-09-29] MEDS ORDERED: [UNRECOGNIZED DRUG - REMARK] IV SCH ×4 (12:30)
[2018-09-29 12:33] LABS: Glucose,Whole Blood 116 mg/dL (75-99)
--- NOTE | 2018-09-29 16:51 | PN ---
PROGRESS NOTE Mr. Santana is in atrial fibrillation. Rate control is better. He is still on a ventilator, fairly deeply sedated. Given his atrial fibrillation and possibility of emboli to the bowel resulting in ischemia, I am recommending that we resume heparin. I spoke to the surgeon, Dr. Cline, yesterday. We will start him back on a low-dose heparin protocol without giving him a bolus. S1, S2 heard normally. Irregular rhythm noted. Lungs reveal decent air entry assisted by the ventilator. Abdomen and lower extremity exam is unchanged. Prognosis for this patient is guarded. I am awaiting the results of echo that will be performed later on today. Overall prognosis remains guarded. MMODL / IJN: [id number] /
[2018-09-29] MEDS ORDERED: Potassium Replacement Protocol 1 EACH MISC MISCELLANE PRN (17:27)
[2018-09-29 18:07] LABS: Glucose,Whole Blood 158 mg/dL (75-99)
[2018-09-29] MEDS: POTASSIUM CHLORIDE 20 MEQ in WATER FOR INJECTION 1 100ML.BAG IVPB SCH ×2 (18:08→19:07)
[2018-09-29] MEDS: INSULIN ASPART 100 UNIT/ML 1 ML 10 ML VIAL SQ SCH ×2 (18:11→23:32)
--- NOTE | 2018-09-29 18:30 | ECHOF ---
Referral Reason:elevated troponin MEASUREMENTS -------- HEIGHT: 152.4 cm WEIGHT: 66.7 kg BP: 110/51 RVIDd: 3.0 cm (< 3.3) IVSd: 1.3 cm (0.6 - 1.1) LVIDd: 3.7 cm (3.9 - 5.3) LVPWd: 1.5 cm (0.6 - 1.1) IVSs: 1.8 cm LVIDs: 3.1 cm LVPWs: 1.6 cm LA Diam: 3.2 cm (2.7 - 3.8) LAESV Index (A-L): 33.69 ml/m Ao Diam: 3.4 cm (2.0 - 3.7) AV Cusp: 2.0 cm (1.5 - 2.6) MV EXCURSION: 17.484 mm (> 18.000) MV EF SLOPE: 97 mm/s (70 - 150) EPSS: 0.9 cm MV E Wilmer: 0.76 m/s MV DecT: 298 ms MV A Wilmer: 1.06 m/s MV E/A Ratio: 0.72 RAP: 5.00 mmHg RVSP: 27.81 mmHg FINDINGS -------- Sinus rhythm with extra systolic beats. This was a technically good study. The left ventricular size is normal. There is moderate concentric left ventricular hypertrophy. O verall left ventricular systolic function is low-normal with, an EF between 50 - 55 %. The right ventricle is normal in size. LA is moderately dilated 34-39 ml/m2 The right atrium is normal in size. The aortic valve is trileaflet and appears structurally normal. Mild mitral annular calcification present. There is trace to mild mitral regurgitation. Mild tricuspid regurgitation present. Right ventricular systolic pressure is normal at < 35 mmHg. There is no pulmonic regurgitation present. The aortic root size is normal. Normal inferior vena cava with normal inspiratory collapse consistent with estimated right atrial pre ssure of 5 mmHg. There is no pericardial effusion. Moderate Pleural Effusion. CONCLUSIONS -------- 1. Sinus rhythm with extra systolic beats. 2. This was a technically good study. 3. The left ventricular size is normal. 4. There is moderate concentric left ventricular hypertrophy. 5. Overall left ventricular systolic function is low-normal with, an EF between 50 - 55 %. 6. LA is moderately dilated 34-39 ml/m2 7. The aortic valve is trileaflet and appears structurally normal. 8. Mild mitral annular calcification present. 9. There is trace to mild mitral regurgitation. 10. Mild tricuspid regurgitation present. 11. Right ventricular systolic pressure is normal at < 35 mmHg. 12. There is no pulmonic regurgitation present. 13. The aortic root size is normal. 14. Normal inferior vena cava with normal inspiratory collapse consistent with estimated right atrial pressure of 5 mmHg. 15. There is no pericardial effusion. 16. Moderate Pleural Effusion. DOUGH MOLDER: Linsey Fonseca RDCS
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
--- NOTE | 2018-09-29 22:03 | P.PN ---
Subjective This is a pleasant 68 years old male with past medical history of hypertension and no much home medication presents because of abdominal pain In the emergency room he was afebrile, tachycardic with heart rate range between 110-144. Tachypneic with heart rate 25 blood pressure 137/88. Labs reviewed showing WBC 13.9 K, hemoglobin 9.1, platelets 246. INR 1.0. Sodium 141. Potassium 3.2. High lactic acid 6.7, coming down to 3.1, with elevated AST at 72. With normal ALT. Troponin is elevated at 0.05 and 0.08. Amylase is high but lipase within normal at 158. Urinalysis showing moderate blood. Chest x-ray showed cardiomegaly with no active cardiopulmonary disease. The patient was shown mild changes of congestive CHF. CT of the abdomen and pelvis showing right-sided inguinal and scrotal hernia contents the cecum and terminal ileum. But don't us obstruction. However in the abdominal examination patient has significant abdominal tenderness and scrotal tenderness with his swelling. This was discussed with the surgical call Dr. Cline and the plan was to take him to the surgery for his acute abdomen and after that may be to the intensive care unit. I spoke with the patient and he able to do the surgery also I spoke with the patient daughter upon his request Mrs. Pederson at [phone]. And updated her with her father situation and all her rashes were answered to her satisfaction. 09/28/2018 Patient is status post exploratory laparotomy with action and ileostomy mostly secondary to incarcerated hernia. Is currently in the ICU intubated and sedated. With hematuria in the Pickett catheter. ALLERGY consultation is appreciated most likely this is secondary to Pickett catheter area surgery R following the patient as well as critical care unit. Cardiology also on the case. Patient remains on sodium bicarb, Protonix, IV antibiotics with Zosyn. His W Blas 5.6K. Hemoglobin 7.6. Sodium 140. Creatinine 1.4. I called his daughter Mrs. Pederson at [phone] and left a message to call me back. 09/29/2018 Patient is status post exploratory laparotomy with action and ileostomy mostly secondary to incarcerated hernia.possible some ischemic colitis . cardiology team recommended anticoagulation once he is more stable. Is currently in the ICU intubated and sedated. With hematuria in the Pickett catheter. urology consultation is appreciated most likely his hematuria is secondary to Pickett catheter area surgery R following the patient as well as critical care unit. Cardiology also on the case.pt was evaluated by ID team today Patient remains on sodium bicarb, Protonix, IV antibiotics with Zosyn. His WBC 8.8 K. Hemoglobin 7.3. Sodium 140. Creatinine 1.7. I called his daughter Mrs. Pederson at [phone] and she HAS called back and she was updated about her father condition as per staff. ID team evaluation is appreciated for possible treatment of HIV status. they agree with antibiotic therapy of zosyn and added anti-fungal therapy with Eraxis. Objective - Vital Signs Vital signs: Vital Signs Temp 97.7 F 09/29/18 16:00 Pulse 88 09/29/18 19:00 Resp 22 09/29/18 19:00 BP 109/77 09/29/18 17:00 Pulse Ox 100 09/29/18 19:00 Intake & Output 09/29/18 09/29/18 09/30/18 06:59 18:59 06:59 Intake Total 1750 1518.245 275 Output Total 715 725 75 Balance 1035 793.245 200 Weight 66.7 kg 66.7 kg Intake: IV 1600 1300 275 Dextrose 5% in Water 1, 1500 1000 75 000 ml @ 75 mls/hr IV . [id number] [place] with Sodium Bicarb (1 Meq/ml) 150 ml Rx#:[id number] Piperacillin-Tazobactam 3 100 100 .375 gm In Sodium Chloride 0.9% 100 ml @ 25 mls/hr IVPB Q8HR [place] Rx# :[id number] Potassium Chloride 10 meq 200 In Water For Injection 1 100ml.bag @ 100 mls/hr IVPB Q1H [place] Rx#: [id number] Potassium Chloride 20 meq 200 In Water For Injection 1 100ml.bag @ 50 mls/hr IVPB Q2H [place] Rx#: [id number] Intake, IV Titration 150 218.245 Amount Diltiazem 50 mg In Sodium 50 27.667 Chloride 0.9% 40 ml @ 5 MG/HR 5 mls/hr IV .Q10H [place] Rx#:[id number] Heparin Sod,Pork in 0.45% 117.333 NaCl 25,000 unit In 0.45 % NaCl 1 500ml.bag @ 12 UNITS/KG/HR 16 mls/hr IV .Q24H [place] Rx#:[id number] Propofol 1,000 mg In 100 73.245 Empty Bag 1 bag @ Titrate IV .Q0M [place] Rx#: [id number] Output: Gastric Drainage 150 Urine 565 725 75 Other: Voiding Method Indwelling Catheter Indwelling Catheter ABP, PAP, CO, CI - Last Documented Arterial Blood Pressure 122/61 - Exam GENERAL: The patient is intubated and sedated, not in any acute distress. Well developed, well nourished. HEENT: Pupils are round and equally reacting to light. EOMI. No scleral icterus. No conjunctival pallor. Normocephalic, atraumatic. No pharyngeal erythema. No thyromegaly. CARDIOVASCULAR: S1 and S2 present. No murmurs, rubs, or gallops. PULMONARY: Chest is clear to auscultation, no wheezing or crackles. -ABDOMEN: Soft, incision is closed with no surrounding cellulitis or discharge.. No palpable organomegaly. Pickett catheter in place MUSCULOSKELETAL: No joint swelling or deformity. EXTREMITIES: No cyanosis, clubbing, or pedal edema. NEUROLOGICAL: Gross neurological examination did not reveal any focal deficits. SKIN: No rashes - Labs CBC & Chem 7: 09/29/18 05:53 09/29/18 16:15 Labs: Abnormal Lab Results - Last 24 Hours (Table) 09/27/18 09/29/18 09/29/18 Range/Units 16:50 05:14 05:53 RBC 2.43 L (4.30-5.90) m/uL Hgb 7.3 L (13.0-17.5) gm/dL Hct 21.5 L (39.0-53.0) % RDW 18.6 H (11.5-15.5) % Plt Count 137 L (150-450) k/uL Neutrophils # (Manual) 7.90 H (1.3-7.7) k/uL Lymphocytes # (Manual) 0.09 L (1.0-4.8) k/uL Metamyelocytes # (Man) 0.26 H (0) k/uL Myelocytes # (Manual) 0.18 H (0) k/uL PT (9.0-12.0) sec INR (<1.2) ABG pO2 125 H (83-108) mmHg ABG Total CO2 26 H (19-24) mmol/L ABG O2 Saturation 99.3 H (94-97) % BUN (9-20) mg/dL Creatinine (0.66-1.25) mg/dL Glucose (74-99) mg/dL POC Glucose (mg/dL) (75-99) mg/dL Hemoglobin A1c 6.2 H (4.0-6.0) % Calcium (8.4-10.2) mg/dL Ionized Calcium Taras (4.5-5.3) mg/dL Phosphorus (2.5-4.5) mg/dL Magnesium (1.6-2.3) mg/dL Triglycerides (<150) mg/dL 09/29/18 09/29/18 09/29/18 Range/Units 05:53 08:51 10:35 RBC (4.30-5.90) m/uL Hgb (13.0-17.5) gm/dL Hct (39.0-53.0) % RDW (11.5-15.5) % Plt Count (150-450) k/uL Neutrophils # (Manual) (1.3-7.7) k/uL Lymphocytes # (Manual) (1.0-4.8) k/uL Metamyelocytes # (Man) (0) k/uL Myelocytes # (Manual) (0) k/uL PT 12.9 H (9.0-12.0) sec INR 1.3 H (<1.2) ABG pO2 (83-108) mmHg ABG Total CO2 (19-24) mmol/L ABG O2 Saturation (94-97) % BUN 46 H (9-20) mg/dL Creatinine 1.71 H (0.66-1.25) mg/dL Glucose 150 H (74-99) mg/dL POC Glucose (mg/dL) (75-99) mg/dL Hemoglobin A1c (4.0-6.0) % Calcium 6.8 L (8.4-10.2) mg/dL Ionized Calcium Taras 4.1 L (4.5-5.3) mg/dL Phosphorus 5.1 H (2.5-4.5) mg/dL Magnesium 2.4 H (1.6-2.3) mg/dL Triglycerides 383 H (<150) mg/dL 09/29/18 09/29/18 Range/Units 12:30 18:05 RBC (4.30-5.90) m/uL Hgb (13.0-17.5) gm/dL Hct (39.0-53.0) % RDW (11.5-15.5) % Plt Count (150-450) k/uL Neutrophils # (Manual) (1.3-7.7) k/uL Lymphocytes # (Manual) (1.0-4.8) k/uL Metamyelocytes # (Man) (0) k/uL Myelocytes # (Manual) (0) k/uL PT (9.0-12.0) sec INR (<1.2) ABG pO2 (83-108) mmHg ABG Total CO2 (19-24) mmol/L ABG O2 Saturation (94-97) % BUN (9-20) mg/dL Creatinine (0.66-1.25) mg/dL Glucose (74-99) mg/dL POC Glucose (mg/dL) 116 H 158 H (75-99) mg/dL Hemoglobin A1c (4.0-6.0) % Calcium (8.4-10.2) mg/dL Ionized Calcium Taras (4.5-5.3) mg/dL Phosphorus (2.5-4.5) mg/dL Magnesium (1.6-2.3) mg/dL Triglycerides (<150) mg/dL Assessment and Plan Assessment: Incarcerated right inguinal hernia, status post exploratory laparotomy, bowel resection and ileostomy Anemia Elevated Lactic acid Elevated troponin Hematuria Scrotal swelling, ultra-sound showing calcification. Plan: This is a pleasant 68 years old male who presents with acute abdomen secondary to incarcerated hernia. Patient status surgical resection and ileostomy. Several consults are following the patient including surgery, neurology, critical care/pulmonary, cardiology. Continue with antibiotics. Continue with IV fluids. NG tube. Nothing by mouth.Labs and medication were reviewed. After surgery patient might be going to the intensive care unit. Continue same treatment. Continue with symptomatic treatment. Resume home medication. Monitor lytes and vitals. DVT and GI prophylaxis. Further recommendations of the clinical course of the patient Prognosis is guarded
[2018-09-29] MEDS ORDERED: ANIDULAFUNGIN 200 MG in SODIUM CHLORIDE 0.9% 200 ML IVPB ONE (22:30)
[2018-09-29 23:28] LABS: Glucose,Whole Blood 166 mg/dL (75-99)
[2018-09-29 23:59] LABS: Glucose,Whole Blood 153 mg/dL (75-99)
[2018-09-30] MEDS: POTASSIUM CHLORIDE 10 MEQ in WATER FOR INJECTION 1 100ML.BAG IVPB SCH ×5 (01:42→21:55)
[2018-09-30] MEDS: PROPOFOL 1,000 MG in EMPTY BAG 1 BAG IV SCH ×3 (05:15→21:55)
[2018-09-30] MEDS: MORPHINE SULFATE 4 MG/ML SYRINGE IV PRN ×2 (05:16→23:51)
[2018-09-30 05:20] LABS: Anisocytosis Slight; Basophils % (A) 0 %; Eosinophils % (A) 0 %; HCT 22.1 % (39.0-53.0); HGB 7.3 gm/dL (13.0-17.5); Hypochromasia Slight; Lymphocytes # (A) 0.5 k/uL (1.0-4.8); Lymphocytes % (A) 5 %; MCH 29.1 pg (25.0-35.0); MCHC 33.2 g/dL (31.0-37.0); MCV 87.8 fL (80.0-100.0); Monocytes # (A) 0.5 k/uL (0-1.0); Monocytes % (A) 5 %; Neutrophils # (A) 8.5 k/uL (1.3-7.7); Neutrophils % (A) 87 %; Platelet Count 155 k/uL (150-450); Poikilocytosis Slight; RBC 2.52 m/uL (4.30-5.90); RDW 18.5 % (11.5-15.5); WBC 9.8 k/uL (3.8-10.6)
[2018-09-30 05:54] LABS: Calcium 7.1 mg/dL (8.4-10.2); Magnesium 2.6 mg/dL (1.6-2.3); Phosphorus 2.8 mg/dL (2.5-4.5); Potassium 3.5 mmol/L (3.5-5.1)
[2018-09-30 06:00] LABS: Glucose,Whole Blood 152 mg/dL (75-99)
[2018-09-30] MEDS: INSULIN ASPART 100 UNIT/ML 1 ML 10 ML VIAL SQ SCH ×3 (06:04→18:16)
[2018-09-30] MEDS: DEXTROSE 5% IN WATER 1,000 ML with SODIUM BICARB (1 MEQ/ML) 150 ML IV SCH (06:05)
--- NOTE | 2018-09-30 06:33 | XR ---
EXAMINATION TYPE: XR chest 1V portable DATE OF EXAM: 09/30/2018 CLINICAL HISTORY: Difficulty breathing progress study. TECHNIQUE: Single AP portable semiupright view of the chest is obtained. COMPARISON: Chest x-ray from one day earlier and older studies. FINDINGS: An endotracheal tube and orogastric tube are stable in appearance. There is stimulator dev ice terminating in the mid to lower thoracic spine redemonstrated. There is stable cardiomegaly with atherosclerotic thoracic aorta and increasing central vascular chely estion. There are persistent small bilateral pleural effusions as well as right basilar opacity. Uppe r lungs are clear without pneumothorax. Resection distal right clavicle is seen. High riding bilatera l humeral head suggests chronic rotator cuff tears. IMPRESSION: Correlate for CHF exacerbation as there is cardiomegaly with slightly more prominent cent ral vascular congestion, small bilateral pleural effusions are felt present. In addition there is per sistent right basilar acute infiltrate and/or atelectasis seen.
[2018-09-30 07:27] LABS: ABG Base Excess 1.9 mmol/L; ABG HCO3 26 mmol/L (21-25); ABG Oxygen Saturation 98.2 % (94-97); ABG PCO2 35 mmHg (35-45); ABG PH 7.47 (7.35-7.45); ABG PO2 101 mmHg (83-108); ABG TCO2 27 mmol/L (19-24)
[2018-09-30] MEDS: PIPERACILLIN-TAZOBACTAM 3.375 GM in SODIUM CHLORIDE 0.9% 100 ML IVPB SCH ×2 (08:38→15:20)
[2018-09-30] MEDS: CHLORHEXIDINE GLUCONATE 15 ML CUP MUCOUS MEM SCH ×2 (08:43→21:56)
[2018-09-30] MEDS: PANTOPRAZOLE 40 MG/10 ML VIAL IVP SCH (08:44)
--- NOTE | 2018-09-30 09:30 | PN ---
PROGRESS NOTE Mr. Santana is a gentleman with a history of bowel ischemia, status post surgery, also seems to have paroxysmal AFib. He is maintaining sinus rhythm today. He is still intubated but seems to respond to commands when his sedation wears off. His vital signs are stable. He is making decent urine. S1-S2 heard normally. He is maintaining sinus rhythm. Short systolic murmur noted; lungs with the ventilator assistance seemed to have decent air entry. The rest of physical examination is unchanged. I am recommending that we continue to heparinize him and keep within the range with a low-dose protocol and we will continue all his other medications as before. His ejection fraction is fairly well preserved on echocardiogram. The patient will need to be anticoagulated after the next 2-3 days and he will need long-term anticoagulation given the fact this may be an embolic phenomenon with bowel ischemia. We will for now continue heparin. MMODL / IJN: [id number] /
[2018-09-30] MEDS: HEPARIN SOD,PORK IN 0.45% NACL 25,000 UNIT in 0.45% NACL 1 500ML.BAG IV SCH (09:55)
[2018-09-30 11:22] LABS: T4/T8 Ratio (CD4:CD8) 1.2 (1.0-3.7)
--- NOTE | 2018-09-30 12:39 | P.PN ---
Subjective Progress Note Date: 09/30/18 Patient seen and examined at bedside. Still on vent, still sedated. Increased distention in his abdomen. No ostomy output. Objective - Vital Signs Vital signs: Vital Signs Temp 98.2 F 09/30/18 12:00 Pulse 89 09/30/18 12:00 Resp 28 H 09/30/18 12:00 BP 123/85 09/30/18 11:00 Pulse Ox 96 09/30/18 12:00 Intake & Output 09/29/18 09/30/18 09/30/18 18:59 06:59 18:59 Intake Total 4604.039 1221.122 1691.347 Output Total 725 845 565 Balance 843.260 9069.122 1126.347 Weight 66.7 kg 68.7 kg Intake: IV 1300 1880 1505 Anidulafungin 200 mg In 200 Sodium Chloride 0.9% 200 ml @ 84 mls/hr IVPB ONCE ONE Rx#:[id number] Dextrose 5% in Water 1, 1000 750 375 000 ml @ 75 mls/hr IV . [id number] [place] with Sodium Bicarb (1 Meq/ml) 150 ml Rx#:[id number] Mvi, Adult No.4 with Vit 330 30 K 10 ml Parenteral Electrolytes 20 ml Trace (Conc-1Ml/Dose) 1 ml In Amino Acid 5%-D15w 1,000 ml @ 30 mls/hr IV .Q24H [facility] Rx#:[id number] Piperacillin-Tazobactam 3 100 100 100 .375 gm In Sodium Chloride 0.9% 100 ml @ 25 mls/hr IVPB Q8HR [facility] Rx# :[id number] Potassium Chloride 10 meq 200 In Water For Injection 1 100ml.bag @ 100 mls/hr IVPB Q1H [facility] Rx#: [id number] Potassium Chloride 20 meq 500 1000 In Water For Injection 1 100ml.bag @ 50 mls/hr IVPB Q2H [facility] Rx#: [id number] Intake, IV Titration 218.245 492.122 186.347 Amount Diltiazem 50 mg In Sodium 27.667 50 Chloride 0.9% 40 ml @ 5 MG/HR 5 mls/hr IV .Q10H [facility] Rx#:[id number] Heparin Sod,Pork in 0.45% 117.333 262.922 119.509 NaCl 25,000 unit In 0.45 % NaCl 1 500ml.bag @ 12 UNITS/KG/HR 16 mls/hr IV .Q24H [facility] Rx#:[id number] Propofol 1,000 mg In 73.245 179.200 66.838 Empty Bag 1 bag @ Titrate IV .Q0M [facility] Rx#: [id number] Output: Urine 725 845 565 Other: Voiding Method Indwelling Catheter Indwelling Catheter Indwelling Catheter ABP, PAP, CO, CI - Last Documented Arterial Blood Pressure 131/65 - Constitutional Constitutional Comment(s): Vented and sedated - Gastrointestinal Gastrointestinal Comment(s): Increased distention, ostomy is patent with no output, midline incision is clean , dry and intact - Labs CBC & Chem 7: 09/30/18 05:05 09/30/18 09:25 Labs: Abnormal Lab Results - Last 24 Hours (Table) 09/28/18 09/29/18 09/29/18 Range/Units 13:40 18:05 23:26 RBC (4.30-5.90) m/uL Hgb (13.0-17.5) gm/dL Hct (39.0-53.0) % RDW (11.5-15.5) % Neutrophils # (1.3-7.7) k/uL Lymphocytes # (1.0-4.8) k/uL APTT (22.0-30.0) sec ABG pH (7.35-7.45) ABG HCO3 (21-25) mmol/L ABG Total CO2 (19-24) mmol/L ABG O2 Saturation (94-97) % Potassium (3.5-5.1) mmol/L BUN (9-20) mg/dL Creatinine (0.66-1.25) mg/dL Glucose (74-99) mg/dL POC Glucose (mg/dL) 158 H 166 H (75-99) mg/dL Calcium (8.4-10.2) mg/dL Magnesium (1.6-2.3) mg/dL T-Suppressor Cells 52 L (190-832) cell/ul Absolute CD4 [place] 65 L (443-1471) cell/ul 09/29/18 09/29/18 09/30/18 Range/Units 23:27 23:58 05:05 RBC 2.52 L (4.30-5.90) m/uL Hgb 7.3 L (13.0-17.5) gm/dL Hct 22.1 L (39.0-53.0) % RDW 18.5 H (11.5-15.5) % Neutrophils # 8.5 H (1.3-7.7) k/uL Lymphocytes # 0.5 L (1.0-4.8) k/uL APTT 32.2 H (22.0-30.0) sec ABG pH (7.35-7.45) ABG HCO3 (21-25) mmol/L ABG Total CO2 (19-24) mmol/L ABG O2 Saturation (94-97) % Potassium (3.5-5.1) mmol/L BUN (9-20) mg/dL Creatinine (0.66-1.25) mg/dL Glucose (74-99) mg/dL POC Glucose (mg/dL) 153 H (75-99) mg/dL Calcium (8.4-10.2) mg/dL Magnesium (1.6-2.3) mg/dL T-Suppressor Cells (190-832) cell/ul Absolute CD4 [place] (443-1471) cell/ul 09/30/18 09/30/18 09/30/18 Range/Units 05:05 05:05 05:59 RBC (4.30-5.90) m/uL Hgb (13.0-17.5) gm/dL Hct (39.0-53.0) % RDW (11.5-15.5) % Neutrophils # (1.3-7.7) k/uL Lymphocytes # (1.0-4.8) k/uL APTT 35.5 H (22.0-30.0) sec ABG pH (7.35-7.45) ABG HCO3 (21-25) mmol/L ABG Total CO2 (19-24) mmol/L ABG O2 Saturation (94-97) % Potassium (3.5-5.1) mmol/L BUN 46 H (9-20) mg/dL Creatinine 1.31 H (0.66-1.25) mg/dL Glucose 146 H (74-99) mg/dL POC Glucose (mg/dL) 152 H (75-99) mg/dL Calcium 7.1 L (8.4-10.2) mg/dL Magnesium 2.6 H (1.6-2.3) mg/dL T-Suppressor Cells (190-832) cell/ul Absolute CD4 [place] (443-1471) cell/ul 09/30/18 09/30/18 09/30/18 Range/Units 07:24 09:25 11:55 RBC (4.30-5.90) m/uL Hgb (13.0-17.5) gm/dL Hct (39.0-53.0) % RDW (11.5-15.5) % Neutrophils # (1.3-7.7) k/uL Lymphocytes # (1.0-4.8) k/uL APTT 38.4 H (22.0-30.0) sec ABG pH 7.47 H (7.35-7.45) ABG HCO3 26 H (21-25) mmol/L ABG Total CO2 27 H (19-24) mmol/L ABG O2 Saturation 98.2 H (94-97) % Potassium 3.4 L (3.5-5.1) mmol/L BUN (9-20) mg/dL Creatinine (0.66-1.25) mg/dL Glucose (74-99) mg/dL POC Glucose (mg/dL) (75-99) mg/dL Calcium (8.4-10.2) mg/dL Magnesium (1.6-2.3) mg/dL T-Suppressor Cells (190-832) cell/ul Absolute CD4 [place] (443-1471) cell/ul Microbiology - Last 24 Hours (Table) 09/27/18 19:43 Gram Stain - Final Sputum Sputum Culture - Final Assessment and Plan (1) Ischemia, bowel Narrative/Plan: Postoperative day #3 from expiratory laparotomy and ischemic bowel resection - ICU management, vent management, sedation management - Continue Pickett catheter, continue nasogastric tube decompression, patient has a high likelihood of prolonged ileus due to recent surgery and ischemic bowel, this would be expected - Hold any feeds, okay to begin parenteral nutrition - Okay to begin anticoagulation - Cardiology recommendations appreciated - Prognosis very guarded/poor Current Visit: Yes Status: Acute Code(s): K55.9 - VASCULAR DISORDER OF INTESTINE, UNSPECIFIED SNOMED Code(s): 83792338
[2018-09-30 12:58] LABS: Glucose,Whole Blood 144 mg/dL (75-99)
--- NOTE | 2018-09-30 13:10 | P.PN ---
Subjective Progress Note Date: 09/30/18 Principal diagnosis: Status post exploratory laparotomy and ischemic bowel resection. Postoperative day #3 This is a 68-year-old -[place] male patient who lives in [place] and the patient usually goes to the [facility] and [facility] for usual medical care. He came in to our emergency department because of abdominal pain. He is currently rehabilitating for substance abuse, IV drug abuse and he was in a alf house on [facility] where he developed increased abdominal pain initially in the suprapubic area and later on his lower abdomen bilaterally more so on the right and the pain was constant and radiating to his back. He came into the emergency department and he was seen by the ED physician. He was given IV morphine for pain control. White cell count was at 15.9. A computed tomography scan of the abdomen was done that showed dilated urinary bladder in addition to a large right-sided scrotal hernia containing the cecum and the terminal ileum. There was no evidence of any bowel obstruction. No evidence of any thoracic or abdominal aortic aneurysm or dissection. The patient initially lactic acid level was 6.7. He was started on IV fluids. He was found to be in atrial fibrillation with rapid ventricular response and he was placed on a Cardizem drip at 5 mg an hour and the patient was admitted to the hospital. I had a chance to evaluate this patient this afternoon. Upon my arrival the patient was in excruciating pain. He was hurting to the point where he was unable to lay down in bed. He was trying to get himself out of the bed. I noted some bloody urine in his Pickett catheter. Abdomen was quite tense and tender and there was direct and rebound tenderness. The right scrotum was quite swollen. No bowel sounds were appreciated. The concern was an incarcerated indirect hernia, with an acute abdomen. Based on that, I immediate recall general surgery and I asked him to come and evaluate this patient in the emergency department as soon as possible for possible surgical intervention of this indirect inguinal hernia. The ultrasound of the testicle showed a grade 4 right-sided testicular microlithiasis.. The patient has noted some progressive swelling in the right scrotum over the past 3 weeks. According to him this is a new finding. No nausea. No vomiting. No chest pain. On today's evaluation of 09/28/2008 and I'm seeing this patient in follow-up. Note that I saw this patient in the emergency department and the patient had an acute abdomen. He was immediately taken to the operating room. Intraoperatively, the patient was found to have ischemic bowel beginning in the distal ileum and extensively throughout the right colon and most of the transverse colon. The bowel was also noted to be strangulated in the right inguinal canal. During the surgery, the patient was noted to be hypotensive and he was started on pressors. He was placed on Rosendo-Synephrine. He underwent a expected to laparotomy, bowel resection and ileostomy was also created. Following that the patient was brought into the intensive care unit. He was kept intubated and on mechanical ventilator. Overnight, the pressors were discontinued. He was given a total of 4 L of IV fluids and currently is on a maintenance and this patient to a bicarb infusion with a rate of 1 25 mL an hour knowing that the patient has some underlying metabolic acidosis. He remains on a mechanical ventilator. He was quite asynchronous. I switched him to a VC plus molds. His current and a tidal volume of 450 with a rate of 14 and FiO2 of 50% with a PEEP of 5. His morning blood gases showed a pH of 7.32 with a pCO2 of 33 and pO2 of 119. The fluid balance is +3.4 L over the past 12 hours. He is producing urine output. He is sedated with Diprivan is calm and comfortable. NG tube is in place. Surgical wound site is clean. Ileostomy site is viable at this point in time. He is covered with broad-spectrum antibiotics with IV Zosyn. Hemoglobin is at 7.6. There was a slight jump in the creatinine which is up to 1.41 which is expected. On 09/29/2018, patient was evaluated in the ICU today, he is status post exploratory laparotomy and resection of what turned out to be an ischemic bowel. Patient was found to have ischemic bowel beginning in the distal ileum and extensively through the right colon and most of the transverse colon. He had a strangulated right inguinal hernia. During the surgery he was hypotensive requiring pressors and fluids, he was also placed on Rosendo- Synephrine. Presently in the ICU, remains on mechanical ventilation, his ventilator settings are basically the same tidal volume is 450, assist control rate of 14 of 5 and FiO2 is down to 40% today. ABG this morning showed a pO2 of 125 pCO2 of 40 pH of 7.40, he was still on a bicarb drip at 25 mL per hour, and I cut it down to 65 mL per hour. CBC was noted, WBC count is 8.8 hemoglobin is 7.3. Renal functioning is a bit worse, although he has a decent urine output, BUN is 46 creatinine is 1.71. Clearly the patient developed some acute kidney injury. Chest x-ray was reviewed, endotracheal tube seems to be in the proper position. There is evidence of bibasilar infiltrates, right more so than left. Patient remains on broad-spectrum antibiotics. He is presently on Zosyn. The rise in creatinine is expected considering his presentation. Patient is sedated, however I plan to withhold propofol, assess mental status, and possibly consider a weaning trial if possible. Reevaluated today on 09/30/2018, patient remains on mechanical ventilation, ventilator settings are tidal volume of 450 assist-control rate of 20 PEEP of 5 and FiO2 of 40%. Patient remains on Cardizem drip, heparin drip, propofol drip , TPN. Presently the propofol was placed on hold, and I plan to address the patient's mental status, and possibly give him a trial of weaning utilizing a pressure support and CPAP. Chest x-ray did show evidence of congestive changes , central vascular congestion, and small bilateral effusions were noted. Urine output seems to be excellent. There is some right basilar atelectasis, strongly doubt pneumonia. Objective - Vital Signs Vital signs: Vital Signs Temp 98.2 F 09/30/18 12:00 Pulse 89 09/30/18 12:00 Resp 26 H 09/30/18 12:00 BP 123/85 09/30/18 11:00 Pulse Ox 96 09/30/18 12:00 Intake & Output 09/29/18 09/30/18 09/30/18 18:59 06:59 18:59 Intake Total 0476.542 5405.122 1691.347 Output Total 725 845 565 Balance 593.205 5166.122 1126.347 Weight 66.7 kg 68.7 kg Intake: IV 1300 1880 1505 Anidulafungin 200 mg In 200 Sodium Chloride 0.9% 200 ml @ 84 mls/hr IVPB ONCE ONE Rx#:[id number] Dextrose 5% in Water 1, 1000 750 375 000 ml @ 75 mls/hr IV . [id number] [place] with Sodium Bicarb (1 Meq/ml) 150 ml Rx#:[id number] Mvi, Adult No.4 with Vit 330 30 K 10 ml Parenteral Electrolytes 20 ml Trace (Conc-1Ml/Dose) 1 ml In Amino Acid 5%-D15w 1,000 ml @ 30 mls/hr IV .Q24H [facility] Rx#:[id number] Piperacillin-Tazobactam 3 100 100 100 .375 gm In Sodium Chloride 0.9% 100 ml @ 25 mls/hr IVPB Q8HR [facility] Rx# :[id number] Potassium Chloride 10 meq 200 In Water For Injection 1 100ml.bag @ 100 mls/hr IVPB Q1H [facility] Rx#: [id number] Potassium Chloride 20 meq 500 1000 In Water For Injection 1 100ml.bag @ 50 mls/hr IVPB Q2H [facility] Rx#: [id number] Intake, IV Titration 218.245 492.122 186.347 Amount Diltiazem 50 mg In Sodium 27.667 50 Chloride 0.9% 40 ml @ 5 MG/HR 5 mls/hr IV .Q10H [facility] Rx#:[id number] Heparin Sod,Pork in 0.45% 117.333 262.922 119.509 NaCl 25,000 unit In 0.45 % NaCl 1 500ml.bag @ 12 UNITS/KG/HR 16 mls/hr IV .Q24H [facility] Rx#:[id number] Propofol 1,000 mg In 73.245 179.200 66.838 Empty Bag 1 bag @ Titrate IV .Q0M [facility] Rx#: [id number] Output: Urine 725 845 565 Other: Voiding Method Indwelling Catheter Indwelling Catheter Indwelling Catheter ABP, PAP, CO, CI - Last Documented Arterial Blood Pressure 131/65 - Exam Physical Exam: Revealed a 68-year-old black male on mechanical ventilation, sedated, in no distress. Head: Atraumatic, normocephalic, HEENT: PERRLA, EOMI, moist mucous membranes. [Neck is supple.] [No neck masses. ] [No thyromegaly.] [No JVD.] Chest: [Crackles and rhonchi bilaterally especially at the bases, endotracheal tube is intact..] Cardiac Exam: [Normal S1 and S2, no S3 gallop, no murmur.] Abdomen: [Surgical wound is clean, ileostomy bag was noted, seems to be relatively empty, ileostomy seems viable, but there is dark blood noted in the bag/minimal amount. No rebound, no tenderness, diminished bowel sounds. Extremities: [No clubbing, no edema, no cyanosis.] Neurological Exam: Cannot be assessed, patient is sedated, on propofol. Psychiatric: Could not be assessed patient remains sedated on propofol. Skin: Surgical site seems to be clean and dry. - Labs CBC & Chem 7: 09/30/18 05:05 09/30/18 09:25 Labs: Abnormal Lab Results - Last 24 Hours (Table) 09/28/18 09/29/18 09/29/18 Range/Units 13:40 18:05 23:26 RBC (4.30-5.90) m/uL Hgb (13.0-17.5) gm/dL Hct (39.0-53.0) % RDW (11.5-15.5) % Neutrophils # (1.3-7.7) k/uL Lymphocytes # (1.0-4.8) k/uL APTT (22.0-30.0) sec ABG pH (7.35-7.45) ABG HCO3 (21-25) mmol/L ABG Total CO2 (19-24) mmol/L ABG O2 Saturation (94-97) % Potassium (3.5-5.1) mmol/L BUN (9-20) mg/dL Creatinine (0.66-1.25) mg/dL Glucose (74-99) mg/dL POC Glucose (mg/dL) 158 H 166 H (75-99) mg/dL Calcium (8.4-10.2) mg/dL Magnesium (1.6-2.3) mg/dL T-Suppressor Cells 52 L (190-832) cell/ul Absolute CD4 [place] 65 L (443-1471) cell/ul 09/29/18 09/29/18 09/30/18 Range/Units 23:27 23:58 05:05 RBC 2.52 L (4.30-5.90) m/uL Hgb 7.3 L (13.0-17.5) gm/dL Hct 22.1 L (39.0-53.0) % RDW 18.5 H (11.5-15.5) % Neutrophils # 8.5 H (1.3-7.7) k/uL Lymphocytes # 0.5 L (1.0-4.8) k/uL APTT 32.2 H (22.0-30.0) sec ABG pH (7.35-7.45) ABG HCO3 (21-25) mmol/L ABG Total CO2 (19-24) mmol/L ABG O2 Saturation (94-97) % Potassium (3.5-5.1) mmol/L BUN (9-20) mg/dL Creatinine (0.66-1.25) mg/dL Glucose (74-99) mg/dL POC Glucose (mg/dL) 153 H (75-99) mg/dL Calcium (8.4-10.2) mg/dL Magnesium (1.6-2.3) mg/dL T-Suppressor Cells (190-832) cell/ul Absolute CD4 [place] (443-1471) cell/ul 09/30/18 09/30/18 09/30/18 Range/Units 05:05 05:05 05:59 RBC (4.30-5.90) m/uL Hgb (13.0-17.5) gm/dL Hct (39.0-53.0) % RDW (11.5-15.5) % Neutrophils # (1.3-7.7) k/uL Lymphocytes # (1.0-4.8) k/uL APTT 35.5 H (22.0-30.0) sec ABG pH (7.35-7.45) ABG HCO3 (21-25) mmol/L ABG Total CO2 (19-24) mmol/L ABG O2 Saturation (94-97) % Potassium (3.5-5.1) mmol/L BUN 46 H (9-20) mg/dL Creatinine 1.31 H (0.66-1.25) mg/dL Glucose 146 H (74-99) mg/dL POC Glucose (mg/dL) 152 H (75-99) mg/dL Calcium 7.1 L (8.4-10.2) mg/dL Magnesium 2.6 H (1.6-2.3) mg/dL T-Suppressor Cells (190-832) cell/ul Absolute CD4 [place] (443-1471) cell/ul 09/30/18 09/30/18 09/30/18 Range/Units 07:24 09:25 11:55 RBC (4.30-5.90) m/uL Hgb (13.0-17.5) gm/dL Hct (39.0-53.0) % RDW (11.5-15.5) % Neutrophils # (1.3-7.7) k/uL Lymphocytes # (1.0-4.8) k/uL APTT 38.4 H (22.0-30.0) sec ABG pH 7.47 H (7.35-7.45) ABG HCO3 26 H (21-25) mmol/L ABG Total CO2 27 H (19-24) mmol/L ABG O2 Saturation 98.2 H (94-97) % Potassium 3.4 L (3.5-5.1) mmol/L BUN (9-20) mg/dL Creatinine (0.66-1.25) mg/dL Glucose (74-99) mg/dL POC Glucose (mg/dL) (75-99) mg/dL Calcium (8.4-10.2) mg/dL Magnesium (1.6-2.3) mg/dL T-Suppressor Cells (190-832) cell/ul Absolute CD4 [place] (443-1471) cell/ul 09/30/18 Range/Units 12:46 RBC (4.30-5.90) m/uL Hgb (13.0-17.5) gm/dL Hct (39.0-53.0) % RDW (11.5-15.5) % Neutrophils # (1.3-7.7) k/uL Lymphocytes # (1.0-4.8) k/uL APTT (22.0-30.0) sec ABG pH (7.35-7.45) ABG HCO3 (21-25) mmol/L ABG Total CO2 (19-24) mmol/L ABG O2 Saturation (94-97) % Potassium (3.5-5.1) mmol/L BUN (9-20) mg/dL Creatinine (0.66-1.25) mg/dL Glucose (74-99) mg/dL POC Glucose (mg/dL) 144 H (75-99) mg/dL Calcium (8.4-10.2) mg/dL Magnesium (1.6-2.3) mg/dL T-Suppressor Cells (190-832) cell/ul Absolute CD4 [place] (443-1471) cell/ul Microbiology - Last 24 Hours (Table) 09/27/18 19:43 Gram Stain - Final Sputum Sputum Culture - Final Assessment and Plan Assessment: Impression: 1 status post exploratory laparotomy, and resection of ischemic bowel secondary to strangulated right inguinal hernia and chronic atrial fibrillation. Patient is status post ileostomy postoperative day #3 2 postoperative respiratory failure, expected, considering the extensiveness of the ischemic bowel and considering the presentation. Patient had profound metabolic acidosis resolved, hence I will go ahead and dissected continue bicarb drip 3 acute kidney injury secondary to hypotension secondary to abdominal sepsis. Possible septic shock on presentation requiring pressors and fluid boluses in the operating room. 4 multiple comorbidities including HIV, on treatment, peripheral vessel occlusive disease, chronic atrial fibrillation, previous AICD placement for cardiomyopathy, history of IV drug abuse, undergoing rehabilitation. Acute lactic acidosis on presentation secondary to ischemic bowel and acute leukocytosis secondary to bowel ischemia. Recommendation: Continue present supportive care measures including ventilatory support, nutritional support patient was started on TPN, discontinue bicarb drip today continue to monitor renal status, patient obviously developed acute kidney injury which is expected considering his presentation of bowel ischemia and hypotension requiring pressors on presentation. His renal profile seems to be improving, creatinine is down to 1.31 from 1.71 yesterday. Plan to give the patient a weaning trial today, he will be off propofol, we'll assess mental status, we will likely try a trial of pressure support and CPAP mode of mechanical ventilation and possibly weaning and extubation if tolerated. If not patient will be re-sedated again and we'll address that in the next 24 hours. Prognosis remains guarded, patient remains critically ill. Critical care time is 35 minutes. Time with Patient: Greater than 30
[2018-09-30] MEDS: HEPARIN SOD,PORK IN 0.45% NACL 25,000 UNIT in 0.45% NACL 1 250ML.BAG IV SCH (13:17)
[2018-09-30] MEDS: POTASSIUM CHLORIDE 20 MEQ in WATER FOR INJECTION 1 100ML.BAG IVPB SCH ×2 (13:21→15:29)
[2018-09-30] MEDS: DILTIAZEM 50 MG in SODIUM CHLORIDE 0.9% 40 ML IV SCH ×2 (13:29→21:56)
[2018-09-30] MEDS: MVI, ADULT NO.4 WITH VIT K 10 ML, TRACE (CONC-1ML/DOSE) 1 ML in AMINO ACID 5%-D15W+LYTE... IV SCH ×3 (14:27)
--- NOTE | 2018-09-30 16:16 | CDI ---
Documentation Clarification Form Date: 09/30/2018 3:31:55 PM From: Leanna Vale RN, CCDS Admit Date: 09/27/2018 8:20:00 AM Patient Name: Gabe Santana Visit Number: [id number] Discharge Date: ATTENTION: The Clinical Documentation Specialists (CDI) and [facility] Coding Staff appreciate your assistance in clarifying documentation. Please respond to the clarification below the line at the bottom and electronically sign. The CDI & [facility] Coding staff will review the response and follow-up if needed. Please note: Queries are made part of the Legal Health Record. If you have any questions, please contact the author of this message via ITS. Dr. Guevara Sheet 09/29/18 Dr. Damico progress notes; Acute kidney injury secondary to hypotension secondary to abdominal sepsis. Possible septic shock on presentation requiring pressors and fluid boluses in the operating room. The patient presented with abdominal pain, tenderness. Patient was found to have ischemic bowel was noted to be hypotensive and started on pressors. History/Risk Factors: IVDA, HIV, Hyperetension, Current every day smoker, Alcohol abuse Clinical Indicators: Abdominal pain found acute abdomen, intraoperatively found to have ischemic bowel. the bowel was also noted to be strangulated in the right inguinal canal WBC 13.9 Neutrophils 11.5, HGB 9.1, HCT 29.3, BUN 1.35, Lactic acid: 6.7, 3.1, 3.5 CT Abd: mild t moderate bilateral hydronephrosis and hyduroureter. Correlate to exclude bowel obstruction due to hernia with bowel loop extending into the right hemiscrotum. Vitals signs on admission: 193/90 144 19 100 % 2/L NC Treatment: ICU monitor/ventilation management Exploratory Laparotomy ischemic bowel resection Monitor Labs Zosyn IV Eraxis IV ID Consult: Antibiotic therapy with Zosyn has been started which is appropriate , Eraxis for antifungal given the significant peritonitis apparently occurred with the ischemic event. Giveh his HIV he is at greater risk IV Bolus per orders In your professional opinion, please clarify if these findings signify one of the following conditions, whether the condition is POA, and cause, if known: Condition Sepsis ruled out Sepsis Severe Sepsis Septic Shock Other, please specify Unable to determine Present on Admission Yes No Identify the (suspected) organism Link or clarify if there is associated (due to/with): Organ failure Shock SIRS Criteria (2 or more of the following may indicate SIRS): -Temperature < 96.8F (36C) or > 101.0F (38.3C) -Heart Rate > 90 bpm -Respiratory Rate > 20 breaths/min or PaCO2 < 32 mmHg -White Blood Cell Count > 12,000 or < 4,000 cells/mm3 or > 10% bands -Lactate >2.0 mmol/L (>4.0 is equivalent to septic shock) (Last Revision: January 2018) there might be elements of infection on pt presentation however it is more picture of acute abdomen and peritonitis which could be both caused by or complicated by infection, that needed anitbiotic MTDD
[2018-09-30 18:11] LABS: Glucose,Whole Blood 150 mg/dL (75-99)
--- NOTE | 2018-09-30 19:12 | P.PN ---
Subjective This is a pleasant 68 years old male with past medical history of hypertension and no much home medication presents because of abdominal pain In the emergency room he was afebrile, tachycardic with heart rate range between 110-144. Tachypneic with heart rate 25 blood pressure 137/88. Labs reviewed showing WBC 13.9 K, hemoglobin 9.1, platelets 246. INR 1.0. Sodium 141. Potassium 3.2. High lactic acid 6.7, coming down to 3.1, with elevated AST at 72. With normal ALT. Troponin is elevated at 0.05 and 0.08. Amylase is high but lipase within normal at 158. Urinalysis showing moderate blood. Chest x-ray showed cardiomegaly with no active cardiopulmonary disease. The patient was shown mild changes of congestive CHF. CT of the abdomen and pelvis showing right-sided inguinal and scrotal hernia contents the cecum and terminal ileum. But don't us obstruction. However in the abdominal examination patient has significant abdominal tenderness and scrotal tenderness with his swelling. This was discussed with the surgical call Dr. Cline and the plan was to take him to the surgery for his acute abdomen and after that may be to the intensive care unit. I spoke with the patient and he able to do the surgery also I spoke with the patient daughter upon his request Mrs. Pederson at [phone]. And updated her with her father situation and all her rashes were answered to her satisfaction. 09/28/2018 Patient is status post exploratory laparotomy with action and ileostomy mostly secondary to incarcerated hernia. Is currently in the ICU intubated and sedated. With hematuria in the Pickett catheter. ALLERGY consultation is appreciated most likely this is secondary to Pickett catheter area surgery R following the patient as well as critical care unit. Cardiology also on the case. Patient remains on sodium bicarb, Protonix, IV antibiotics with Zosyn. His W Blas 5.6K. Hemoglobin 7.6. Sodium 140. Creatinine 1.4. I called his daughter Mrs. Pederson at [phone] and left a message to call me back. 09/29/2018 Patient is status post exploratory laparotomy with action and ileostomy mostly secondary to incarcerated hernia.possible some ischemic colitis . cardiology team recommended anticoagulation once he is more stable. Is currently in the ICU intubated and sedated. With hematuria in the Pickett catheter. urology consultation is appreciated most likely his hematuria is secondary to Pickett catheter area surgery R following the patient as well as critical care unit. Cardiology also on the case.pt was evaluated by ID team today Patient remains on sodium bicarb, Protonix, IV antibiotics with Zosyn. His WBC 8.8 K. Hemoglobin 7.3. Sodium 140. Creatinine 1.7. I called his daughter Mrs. Pederson at [phone] and she HAS called back and she was updated about her father condition as per staff. ID team evaluation is appreciated for possible treatment of HIV status. they agree with antibiotic therapy of zosyn and added anti-fungal therapy with Eraxis. 09/30/2018 pt is in ICU sedated and intubated . pt is been followed up by the critical care team . his stomy bag is still empty, abd is slightly distended. cardiology team recommended anticoagulation which is ok as per surgery team. he was started on heparin drip. With hematuria in the Pickett catheter is improving. urology consultation is appreciated most likely his hematuria is secondary to Pickett catheter area surgery R following the patient as well as critical care unit. Cardiology also on the case.pt was evaluated by ID team today His WBC 9.8 K. Hemoglobin 7.3 stable. Sodium 140. Creatinine 1.3 which keeps improving. ID team evaluation is appreciated for possible treatment of HIV status. they agree with antibiotic therapy of zosyn and added anti-fungal therapy with Eraxis. Objective - Vital Signs Vital signs: Vital Signs Temp 98.2 F 09/30/18 12:00 Pulse 90 09/30/18 18:00 Resp 28 H 09/30/18 18:00 BP 99/68 09/30/18 18:00 Pulse Ox 100 09/30/18 18:00 Intake & Output 09/30/18 09/30/18 10/01/18 06:59 18:59 06:59 Intake Total 2372.122 2724.947 Output Total 845 1040 Balance 7838.596 5893.947 Weight 68.7 kg Intake: IV 1880 2460 Anidulafungin 200 mg In 200 Sodium Chloride 0.9% 200 ml @ 84 mls/hr IVPB ONCE ONE Rx#:[id number] Dextrose 5% in Water 1, 750 750 000 ml @ 75 mls/hr IV . [id number] [place] with Sodium Bicarb (1 Meq/ml) 150 ml Rx#:[id number] Mvi, Adult No.4 with Vit 330 510 K 10 ml Parenteral Electrolytes 20 ml Trace (Conc-1Ml/Dose) 1 ml In Amino Acid 5%-D15w 1,000 ml @ 30 mls/hr IV .Q24H [facility] Rx#:[id number] Piperacillin-Tazobactam 3 100 200 .375 gm In Sodium Chloride 0.9% 100 ml @ 25 mls/hr IVPB Q8HR [place] Rx# :[id number] Potassium Chloride 20 meq 500 1000 In Water For Injection 1 100ml.bag @ 50 mls/hr IVPB Q2H [facility] Rx#: [id number] Intake, IV Titration 492.122 264.947 Amount Diltiazem 50 mg In Sodium 50 50 Chloride 0.9% 40 ml @ 5 MG/HR 5 mls/hr IV .Q10H [facility] Rx#:[id number] Heparin Sod,Pork in 0.45% 28.6 NaCl 25,000 unit In 0.45 % NaCl 1 250ml.bag @ 21 UNITS/KG/HR 14.42 mls/hr IV .[id number] [facility] Rx#: [id number] Heparin Sod,Pork in 0.45% 262.922 119.509 NaCl 25,000 unit In 0.45 % NaCl 1 500ml.bag @ 12 UNITS/KG/HR 16 mls/hr IV .Q24H [facility] Rx#:[id number] Propofol 1,000 mg In 179.200 66.838 Empty Bag 1 bag @ Titrate IV .Q0M [facility] Rx#: [id number] Output: Urine 845 1040 Other: Voiding Method Indwelling Catheter Indwelling Catheter ABP, PAP, CO, CI - Last Documented Arterial Blood Pressure 114/53 - Exam GENERAL: The patient is intubated and sedated, not in any acute distress. Well developed, well nourished. HEENT: Pupils are round and equally reacting to light. EOMI. No scleral icterus. No conjunctival pallor. Normocephalic, atraumatic. No pharyngeal erythema. No thyromegaly. CARDIOVASCULAR: S1 and S2 present. No murmurs, rubs, or gallops. PULMONARY: Chest is clear to auscultation, no wheezing or crackles. -ABDOMEN: Soft, incision is closed with no surrounding cellulitis or discharge.. No palpable organomegaly. Pickett catheter in place MUSCULOSKELETAL: No joint swelling or deformity. EXTREMITIES: No cyanosis, clubbing, or pedal edema. NEUROLOGICAL: Gross neurological examination did not reveal any focal deficits. SKIN: No rashes - Labs CBC & Chem 7: 09/30/18 05:05 09/30/18 09:25 Labs: Abnormal Lab Results - Last 24 Hours (Table) 09/28/18 09/29/18 09/29/18 Range/Units 13:40 23:26 23:27 RBC (4.30-5.90) m/uL Hgb (13.0-17.5) gm/dL Hct (39.0-53.0) % RDW (11.5-15.5) % Neutrophils # (1.3-7.7) k/uL Lymphocytes # (1.0-4.8) k/uL APTT 32.2 H (22.0-30.0) sec ABG pH (7.35-7.45) ABG HCO3 (21-25) mmol/L ABG Total CO2 (19-24) mmol/L ABG O2 Saturation (94-97) % Potassium (3.5-5.1) mmol/L BUN (9-20) mg/dL Creatinine (0.66-1.25) mg/dL Glucose (74-99) mg/dL POC Glucose (mg/dL) 166 H (75-99) mg/dL Calcium (8.4-10.2) mg/dL Magnesium (1.6-2.3) mg/dL T-Suppressor Cells 52 L (190-832) cell/ul Absolute CD4 [place] 65 L (443-1471) cell/ul 09/29/18 09/30/18 09/30/18 Range/Units 23:58 05:05 05:05 RBC 2.52 L (4.30-5.90) m/uL Hgb 7.3 L (13.0-17.5) gm/dL Hct 22.1 L (39.0-53.0) % RDW 18.5 H (11.5-15.5) % Neutrophils # 8.5 H (1.3-7.7) k/uL Lymphocytes # 0.5 L (1.0-4.8) k/uL APTT (22.0-30.0) sec ABG pH (7.35-7.45) ABG HCO3 (21-25) mmol/L ABG Total CO2 (19-24) mmol/L ABG O2 Saturation (94-97) % Potassium (3.5-5.1) mmol/L BUN 46 H (9-20) mg/dL Creatinine 1.31 H (0.66-1.25) mg/dL Glucose 146 H (74-99) mg/dL POC Glucose (mg/dL) 153 H (75-99) mg/dL Calcium 7.1 L (8.4-10.2) mg/dL Magnesium 2.6 H (1.6-2.3) mg/dL T-Suppressor Cells (190-832) cell/ul Absolute CD4 [place] (443-1471) cell/ul 09/30/18 09/30/18 09/30/18 Range/Units 05:05 05:59 07:24 RBC (4.30-5.90) m/uL Hgb (13.0-17.5) gm/dL Hct (39.0-53.0) % RDW (11.5-15.5) % Neutrophils # (1.3-7.7) k/uL Lymphocytes # (1.0-4.8) k/uL APTT 35.5 H (22.0-30.0) sec ABG pH 7.47 H (7.35-7.45) ABG HCO3 26 H (21-25) mmol/L ABG Total CO2 27 H (19-24) mmol/L ABG O2 Saturation 98.2 H (94-97) % Potassium (3.5-5.1) mmol/L BUN (9-20) mg/dL Creatinine (0.66-1.25) mg/dL Glucose (74-99) mg/dL POC Glucose (mg/dL) 152 H (75-99) mg/dL Calcium (8.4-10.2) mg/dL Magnesium (1.6-2.3) mg/dL T-Suppressor Cells (190-832) cell/ul Absolute CD4 [place] (443-1471) cell/ul 09/30/18 09/30/18 09/30/18 Range/Units 09:25 11:55 12:46 RBC (4.30-5.90) m/uL Hgb (13.0-17.5) gm/dL Hct (39.0-53.0) % RDW (11.5-15.5) % Neutrophils # (1.3-7.7) k/uL Lymphocytes # (1.0-4.8) k/uL APTT 38.4 H (22.0-30.0) sec ABG pH (7.35-7.45) ABG HCO3 (21-25) mmol/L ABG Total CO2 (19-24) mmol/L ABG O2 Saturation (94-97) % Potassium 3.4 L (3.5-5.1) mmol/L BUN (9-20) mg/dL Creatinine (0.66-1.25) mg/dL Glucose (74-99) mg/dL POC Glucose (mg/dL) 144 H (75-99) mg/dL Calcium (8.4-10.2) mg/dL Magnesium (1.6-2.3) mg/dL T-Suppressor Cells (190-832) cell/ul Absolute CD4 [place] (443-1471) cell/ul 09/30/18 Range/Units 18:09 RBC (4.30-5.90) m/uL Hgb (13.0-17.5) gm/dL Hct (39.0-53.0) % RDW (11.5-15.5) % Neutrophils # (1.3-7.7) k/uL Lymphocytes # (1.0-4.8) k/uL APTT (22.0-30.0) sec ABG pH (7.35-7.45) ABG HCO3 (21-25) mmol/L ABG Total CO2 (19-24) mmol/L ABG O2 Saturation (94-97) % Potassium (3.5-5.1) mmol/L BUN (9-20) mg/dL Creatinine (0.66-1.25) mg/dL Glucose (74-99) mg/dL POC Glucose (mg/dL) 150 H (75-99) mg/dL Calcium (8.4-10.2) mg/dL Magnesium (1.6-2.3) mg/dL T-Suppressor Cells (190-832) cell/ul Absolute CD4 [place] (443-1471) cell/ul Microbiology - Last 24 Hours (Table) 09/27/18 19:43 Gram Stain - Final Sputum Sputum Culture - Final Assessment and Plan Assessment: Incarcerated right inguinal hernia, status post exploratory laparotomy, bowel resection and ileostomy Anemia Elevated Lactic acid, improved Elevated troponin, cardiology team recommended anticoagulation Hematuria, improving acute kid injury, improving Plan: This is a pleasant 68 years old male who presents with acute abdomen secondary to incarcerated hernia. Patient status surgical resection and ileostomy. Several consults are following the patient including surgery, neurology, critical care/pulmonary, cardiology. Continue with antibiotics. Continue with IV fluids. NG tube. Nothing by mouth.Labs and medication were reviewed. After surgery patient might be going to the intensive care unit. Continue same treatment. Continue with symptomatic treatment. Resume home medication. Monitor lytes and vitals. DVT and GI prophylaxis. Further recommendations of the clinical course of the patient Prognosis is guarded
--- NOTE | 2018-09-30 21:48 | P.PN ---
Subjective Progress Note Date: 09/30/18 68-year-old -[place] male presents to emergency center for evaluation of increasing abdominal pain. At this time the patient is postoperative he remains intubated sedated and mechanically ventilated further information is obtained from the chart. It appears [facility] [place] [facility] [place]. He has not have HIV infection and is treated with Genvoya. The hepatitis C status is not known. At admission the patient had significant abdominal pain. He had imaging studies performed that showed evidence of the significant right inguinal hernia and marked abnormality to the colon. The patient was taken urgently to the operating room and a significant amount of ischemic colitis was noted and an ileostomy was placed. The patient has been hypotensive operatively and perioperatively which is now improved. He has required Cardizem for his cardiac dysrhythmia. Patient is developed acute renal failure was having improved urinary output at this time. Infectious diseases consultation requiring antibiotic therapy and treatment of his underlying HIV.09/30/2018 patient failed a temp for weaning today. This comfortable now back on his extensive sedation. He is hemodynamic stable and no vasopressor therapy. Urine output has been adequate and creatinine has improved slightly today. Abdomen remains distended stoma remains dusky. Objective - Vital Signs Vital signs: Vital Signs Temp 98.2 F 09/30/18 12:00 Pulse 89 09/30/18 19:00 Resp 30 H 09/30/18 19:00 BP 119/74 09/30/18 19:00 Pulse Ox 100 09/30/18 18:00 Intake & Output 09/30/18 09/30/18 10/01/18 06:59 18:59 06:59 Intake Total 2372.122 2724.947 60 Output Total 845 1040 85 Balance 1069.457 3585.947 -25 Weight 68.7 kg Intake: IV 1880 2460 60 Anidulafungin 200 mg In 200 Sodium Chloride 0.9% 200 ml @ 84 mls/hr IVPB ONCE ONE Rx#:[id number] Dextrose 5% in Water 1, 750 750 000 ml @ 75 mls/hr IV . [id number] [place] with Sodium Bicarb (1 Meq/ml) 150 ml Rx#:[id number] Mvi, Adult No.4 with Vit 330 510 60 K 10 ml Parenteral Electrolytes 20 ml Trace (Conc-1Ml/Dose) 1 ml In Amino Acid 5%-D15w 1,000 ml @ 30 mls/hr IV .Q24H [place] Rx#:[id number] Piperacillin-Tazobactam 3 100 200 .375 gm In Sodium Chloride 0.9% 100 ml @ 25 mls/hr IVPB Q8HR [place] Rx# :[id number] Potassium Chloride 20 meq 500 1000 In Water For Injection 1 100ml.bag @ 50 mls/hr IVPB Q2H [place] Rx#: [id number] Intake, IV Titration 492.122 264.947 Amount Diltiazem 50 mg In Sodium 50 50 Chloride 0.9% 40 ml @ 5 MG/HR 5 mls/hr IV .Q10H [place] Rx#:[id number] Heparin Sod,Pork in 0.45% 28.6 NaCl 25,000 unit In 0.45 % NaCl 1 250ml.bag @ 21 UNITS/KG/HR 14.42 mls/hr IV .[id number] [place] Rx#: [id number] Heparin Sod,Pork in 0.45% 262.922 119.509 NaCl 25,000 unit In 0.45 % NaCl 1 500ml.bag @ 12 UNITS/KG/HR 16 mls/hr IV .Q24H [place] Rx#:[id number] Propofol 1,000 mg In 179.200 66.838 Empty Bag 1 bag @ Titrate IV .Q0M [place] Rx#: [id number] Output: Gastric Drainage 25 Urine 845 1040 60 Other: Voiding Method Indwelling Catheter Indwelling Catheter ABP, PAP, CO, CI - Last Documented Arterial Blood Pressure 141/60 - Exam 68-year-old male intubated sedated and mechanically ventilated HEENT: Anicteric conjunctiva are pink and moist nasal mucosa grossly intact without significant lesions, there is no thrush. Neck: The neck is supple without significant lymphadenopathy or thyromegaly. Lungs: Symmetrical air entry scattered wheezes no bronchial sounds Heart: Regular rate and rhythm with an audible S1-S2, no S3 no S4. There is no significant murmur click or rub, PMI was nondisplaced. Abdomen: Distended, ostomy site continues to have the red large suture through the site, the stoma is dusky, no significant bowel sounds are heard Extremities: The upper extremities have excellent pulses they are symmetric, no significant petechiae or telangiectasia. No splinter hemorrhages were noted. The lower extremities are free from significant edema. The peripheral pulses were 2+ and symmetric. Neuro: Sedated and mechanically ventilated - Labs CBC & Chem 7: 09/30/18 05:05 09/30/18 18:35 Labs: Abnormal Lab Results - Last 24 Hours (Table) 09/28/18 09/29/18 09/29/18 Range/Units 13:40 23:26 23:27 RBC (4.30-5.90) m/uL Hgb (13.0-17.5) gm/dL Hct (39.0-53.0) % RDW (11.5-15.5) % Neutrophils # (1.3-7.7) k/uL Lymphocytes # (1.0-4.8) k/uL APTT 32.2 H (22.0-30.0) sec ABG pH (7.35-7.45) ABG HCO3 (21-25) mmol/L ABG Total CO2 (19-24) mmol/L ABG O2 Saturation (94-97) % Potassium (3.5-5.1) mmol/L BUN (9-20) mg/dL Creatinine (0.66-1.25) mg/dL Glucose (74-99) mg/dL POC Glucose (mg/dL) 166 H (75-99) mg/dL Calcium (8.4-10.2) mg/dL Magnesium (1.6-2.3) mg/dL T-Suppressor Cells 52 L (190-832) cell/ul Absolute CD4 [place] 65 L (443-1471) cell/ul 09/29/18 09/30/18 09/30/18 Range/Units 23:58 05:05 05:05 RBC 2.52 L (4.30-5.90) m/uL Hgb 7.3 L (13.0-17.5) gm/dL Hct 22.1 L (39.0-53.0) % RDW 18.5 H (11.5-15.5) % Neutrophils # 8.5 H (1.3-7.7) k/uL Lymphocytes # 0.5 L (1.0-4.8) k/uL APTT (22.0-30.0) sec ABG pH (7.35-7.45) ABG HCO3 (21-25) mmol/L ABG Total CO2 (19-24) mmol/L ABG O2 Saturation (94-97) % Potassium (3.5-5.1) mmol/L BUN 46 H (9-20) mg/dL Creatinine 1.31 H (0.66-1.25) mg/dL Glucose 146 H (74-99) mg/dL POC Glucose (mg/dL) 153 H (75-99) mg/dL Calcium 7.1 L (8.4-10.2) mg/dL Magnesium 2.6 H (1.6-2.3) mg/dL T-Suppressor Cells (190-832) cell/ul Absolute CD4 [place] (443-1471) cell/ul 09/30/18 09/30/18 09/30/18 Range/Units 05:05 05:59 07:24 RBC (4.30-5.90) m/uL Hgb (13.0-17.5) gm/dL Hct (39.0-53.0) % RDW (11.5-15.5) % Neutrophils # (1.3-7.7) k/uL Lymphocytes # (1.0-4.8) k/uL APTT 35.5 H (22.0-30.0) sec ABG pH 7.47 H (7.35-7.45) ABG HCO3 26 H (21-25) mmol/L ABG Total CO2 27 H (19-24) mmol/L ABG O2 Saturation 98.2 H (94-97) % Potassium (3.5-5.1) mmol/L BUN (9-20) mg/dL Creatinine (0.66-1.25) mg/dL Glucose (74-99) mg/dL POC Glucose (mg/dL) 152 H (75-99) mg/dL Calcium (8.4-10.2) mg/dL Magnesium (1.6-2.3) mg/dL T-Suppressor Cells (190-832) cell/ul Absolute CD4 [place] (443-1471) cell/ul 09/30/18 09/30/18 09/30/18 Range/Units 09:25 11:55 12:46 RBC (4.30-5.90) m/uL Hgb (13.0-17.5) gm/dL Hct (39.0-53.0) % RDW (11.5-15.5) % Neutrophils # (1.3-7.7) k/uL Lymphocytes # (1.0-4.8) k/uL APTT 38.4 H (22.0-30.0) sec ABG pH (7.35-7.45) ABG HCO3 (21-25) mmol/L ABG Total CO2 (19-24) mmol/L ABG O2 Saturation (94-97) % Potassium 3.4 L (3.5-5.1) mmol/L BUN (9-20) mg/dL Creatinine (0.66-1.25) mg/dL Glucose (74-99) mg/dL POC Glucose (mg/dL) 144 H (75-99) mg/dL Calcium (8.4-10.2) mg/dL Magnesium (1.6-2.3) mg/dL T-Suppressor Cells (190-832) cell/ul Absolute CD4 [place] (443-1471) cell/ul 09/30/18 Range/Units 18:09 RBC (4.30-5.90) m/uL Hgb (13.0-17.5) gm/dL Hct (39.0-53.0) % RDW (11.5-15.5) % Neutrophils # (1.3-7.7) k/uL Lymphocytes # (1.0-4.8) k/uL APTT (22.0-30.0) sec ABG pH (7.35-7.45) ABG HCO3 (21-25) mmol/L ABG Total CO2 (19-24) mmol/L ABG O2 Saturation (94-97) % Potassium (3.5-5.1) mmol/L BUN (9-20) mg/dL Creatinine (0.66-1.25) mg/dL Glucose (74-99) mg/dL POC Glucose (mg/dL) 150 H (75-99) mg/dL Calcium (8.4-10.2) mg/dL Magnesium (1.6-2.3) mg/dL T-Suppressor Cells (190-832) cell/ul Absolute CD4 [place] (443-1471) cell/ul Microbiology - Last 24 Hours (Table) 09/27/18 19:43 Gram Stain - Final Sputum Sputum Culture - Final Laboratory Results WBC 9.8 k/uL (3.8-10.6) 09/30/18 05:05 RBC 2.52 m/uL (4.30-5.90) L 09/30/18 05:05 Hgb 7.3 gm/dL (13.0-17.5) L 09/30/18 05:05 Hct 22.1 % (39.0-53.0) L 09/30/18 05:05 MCV 87.8 fL (80.0-100.0) 09/30/18 05:05 MCH 29.1 pg (25.0-35.0) 09/30/18 05:05 MCHC 33.2 g/dL (31.0-37.0) 09/30/18 05:05 RDW 18.5 % (11.5-15.5) H 09/30/18 05:05 Plt Count 155 k/uL (150-450) 09/30/18 05:05 Neutrophils % 87 % 09/30/18 05:05 Neutrophils % (Manual) 76 % 09/29/18 05:53 Band Neutrophils % 14 % 09/29/18 05:53 Lymphocytes % 5 % 09/30/18 05:05 Lymphocytes % (Manual) 1 % 09/29/18 05:53 Monocytes % 5 % 09/30/18 05:05 Monocytes % (Manual) 5 % 09/29/18 05:53 Eosinophils % 0 % 09/30/18 05:05 Basophils % 0 % 09/30/18 05:05 Basophils % (Manual) 1 % 09/29/18 05:53 Metamyelocytes % 3 % 09/29/18 05:53 Myelocytes % 2 % 09/29/18 05:53 Neutrophils # 8.5 k/uL (1.3-7.7) H 09/30/18 05:05 Neutrophils # (Manual) 7.90 k/uL (1.3-7.7) H 09/29/18 05:53 Lymphocytes # 0.5 k/uL (1.0-4.8) L 09/30/18 05:05 Lymphocytes # (Manual) 0.09 k/uL (1.0-4.8) L 09/29/18 05:53 Monocytes # 0.5 k/uL (0-1.0) 09/30/18 05:05 Monocytes # (Manual) 0.44 k/uL (0-1.0) 09/29/18 05:53 Eosinophils # 0.0 k/uL (0-0.7) 09/30/18 05:05 Basophils # 0.0 k/uL (0-0.2) 09/30/18 05:05 Basophils # (Manual) 0.09 k/uL (0-0.2) 09/29/18 05:53 Metamyelocytes # (Man) 0.26 k/uL (0) H 09/29/18 05:53 Myelocytes # (Manual) 0.18 k/uL (0) H 09/29/18 05:53 Nucleated RBCs 0 /100 WBC (0-0) 09/29/18 05:53 Manual Slide Review Performed 09/29/18 05:53 Toxic Granulation Present 09/29/18 05:53 Dohle Bodies Present 09/29/18 05:53 Large Platelets Present 09/27/18 04:00 Polychromasia Present 09/28/18 04:33 Hypochromasia Slight 09/30/18 05:05 Poikilocytosis Slight 09/30/18 05:05 Poikilocytosis (manual Present 09/27/18 15:07 Anisocytosis Slight 09/30/18 05:05 PT 12.9 sec (9.0-12.0) H 09/29/18 08:51 INR 1.3 (<1.2) H 09/29/18 08:51 APTT 38.4 sec (22.0-30.0) H 09/30/18 11:55 Sample Site [place] 09/30/18 07:24 ABG pH 7.47 (7.35-7.45) H 09/30/18 07:24 ABG pCO2 35 mmHg (35-45) 09/30/18 07:24 ABG pO2 101 mmHg (83-108) 09/30/18 07:24 ABG HCO3 26 mmol/L (21-25) H 09/30/18 07:24 ABG Total CO2 27 mmol/L (19-24) H 09/30/18 07:24 ABG O2 Saturation 98.2 % (94-97) H 09/30/18 07:24 ABG Base Excess 1.9 mmol/L 09/30/18 07:24 Cyrus Test no 09/30/18 07:24 FiO2 40 % 09/30/18 07:24 Sodium 138 mmol/L (137-145) 09/30/18 05:05 Potassium 3.6 mmol/L (3.5-5.1) 09/30/18 18:35 Chloride 106 mmol/L (98-107) 09/30/18 05:05 Carbon Dioxide 26 mmol/L (22-30) 09/30/18 05:05 Anion Gap 6 mmol/L 09/30/18 05:05 BUN 46 mg/dL (9-20) H 09/30/18 05:05 Creatinine 1.31 mg/dL (0.66-1.25) H 09/30/18 05:05 Est GFR (CKD-EPI)AfAm 65 (>60 ml/min/1.73 sqM) 09/30/18 05:05 Est GFR (CKD-EPI)NonAf 56 (>60 ml/min/1.73 sqM) 09/30/18 05:05 Glucose 146 mg/dL (74-99) H 09/30/18 05:05 POC Glucose (mg/dL) 150 mg/dL (75-99) H 09/30/18 18:09 POC Glu Asphalt Smoother KATIA Sapna Tay 09/30/18 18:[address] Glu mg/dL 131 09/27/18 16:50 Hemoglobin A1c 6.2 % (4.0-6.0) H 09/27/18 16:50 Lactic Ac Sepsis Rflx Y 09/27/18 15:58 Plasma Lactic Acid [place] 1.1 mmol/L (0.7-2.0) 09/27/18 20:00 Calcium 7.1 mg/dL (8.4-10.2) L 09/30/18 05:05 Ionized Calcium Tar[place] 4.1 mg/dL (4.5-5.3) L 09/29/18 10:35 Phosphorus 2.8 mg/dL (2.5-4.5) 09/30/18 05:05 Magnesium 2.6 mg/dL (1.6-2.3) H 09/30/18 05:05 Total Bilirubin 0.7 mg/dL (0.2-1.3) 09/27/18 16:50 AST 200 U/L (17-59) H 09/27/18 16:50 ALT 90 U/L (21-72) H 09/27/18 16:50 Alkaline Phosphatase 146 U/L (38-126) H 09/27/18 16:50 Troponin I 0.094 ng/mL (0.000-0.034) H* 09/27/18 15:07 Total Protein 7.6 g/dL (6.3-8.2) 09/27/18 16:50 Albumin 3.5 g/dL (3.5-5.0) 09/27/18 16:50 Triglycerides 383 mg/dL (<150) H 09/29/18 05:53 Amylase 397 U/L (30-110) H* 09/27/18 04:00 Lipase 158 U/L (23-300) 09/27/18 04:00 Urine Color Light Yellow 09/27/18 06:40 Urine Appearance Clear (Clear) 09/27/18 06:40 Urine pH 7.0 (5.0-8.0) 09/27/18 06:40 Ur Specific [place] 1.006 (1.001-1.035) 09/27/18 06:40 Urine Protein 1+ (Negative) H 09/27/18 06:40 Urine Glucose (UA) Trace (Negative) H 09/27/18 06:40 Urine Ketones Negative (Negative) 09/27/18 06:40 Urine Blood Moderate (Negative) H 09/27/18 06:40 Urine Nitrite Negative (Negative) 09/27/18 06:40 Urine Bilirubin Negative (Negative) 09/27/18 06:40 Urine Urobilinogen <2.0 mg/dL (<2.0) 09/27/18 06:40 Ur Leukocyte Esterase Negative (Negative) 09/27/18 06:40 Urine WBC 1 /hpf (0-5) 09/27/18 06:40 Urine Mucus Rare /hpf (None) H 09/27/18 06:40 T-Suppressor Cells 52 cell/ul (190-832) L 09/28/18 13:40 % CD4 [place] 39 % (35-66) 09/28/18 13:40 Absolute CD4 [place] 65 cell/ul (443-1471) L 09/28/18 13:40 CD4/CD8 Ratio 1.2 (1.0-3.7) 09/28/18 13:40 % CD8 Suppressor 32 % (9-37) 09/28/18 13:40 Blood Type O Positive 09/27/18 16:50 Blood Type Confirm O Positive 09/27/18 04:00 Blood Type Recheck CABO Indicated 09/27/18 16:50 Antibody Screen NEGATIVE 09/27/18 16:50 Spec Expiration Date 09/30/2018 - 234909/27/18 16:50 Microbiology 09/27/18 19:43 Sputum Gram Stain - Final 09/27/18 19:43 Sputum Sputum Culture - Final - Imaging and Cardiology Chest x-ray: report reviewed (Congestion and atelectasis versus pneumonia right lower lobe) Assessment and Plan (1) Ischemia, bowel Narrative/Plan: 68-year-old male presents to the emergency center complaining of severe abdominal pain. Find evidence of a strain related hernia into the right inguinal area with evidence of ischemic colitis. Emergent surgical intervention occurred ileostomy and partial colectomy occurred, patient remains in intensive care unit. His hypotension has resolved. However remains in respiratory failure and also has acute renal failure. Antibiotic therapy with Zosyn has been started which is appropriate we'll add in Eraxis for antifungal therapy given the significant peritonitis apparently occurred with the ischemic event. Given his HIV he is at greater risk for underlying CD4 cell count will be obtained to at least give some gauge to the level of immunocompromise. While he has lack of GI function the Genvoya will not be possible. Pharmacy will help dose adjust antimicrobials with declining renal function. 09/30/2018 patient remains intubated sedated and mechanically ventilated, hemodynamicaly stable, not requiring vasopressor therapy. Not having fever today. Anemia is being tracked and evidence of some drop of hemoglobin. Of note CD4 count is low however in this situation of severe sepsis difficult to make significant long-term judgment but with this level of immunocompromise certainly increases the likelihood of a poor outcome. When GI function returns we'll restart his antiretroviral therapy. Zosyn and Eraxis continue for now. Current Visit: Yes Status: Acute Code(s): K55.9 - VASCULAR DISORDER OF INTESTINE, UNSPECIFIED SNOMED Code(s): 69574660
[2018-09-30] MEDS: ANIDULAFUNGIN 100 MG in SODIUM CHLORIDE 0.9% 100 ML IVPB SCH (23:54)
[2018-10-01 00:22] LABS: Glucose,Whole Blood 139 mg/dL (75-99)
[2018-10-01] MEDS: MORPHINE SULFATE 4 MG/ML SYRINGE IV PRN ×3 (05:05→18:03)
[2018-10-01 05:07] LABS: Anisocytosis Slight; HGB 7.2 gm/dL (13.0-17.5); Hypochromasia Slight; MCH 28.9 pg (25.0-35.0); MCHC 32.9 g/dL (31.0-37.0); MCV 87.8 fL (80.0-100.0); Mean Platelet Volume 9.8; Platelet Count 152 k/uL (150-450); Poikilocytosis Slight; RDW 18.4 % (11.5-15.5)
[2018-10-01 06:06] LABS: Calcium 7.8 mg/dL (8.4-10.2); Magnesium 2.7 mg/dL (1.6-2.3); Phosphorus 2.9 mg/dL (2.5-4.5); Potassium 3.8 mmol/L (3.5-5.1)
[2018-10-01 06:45] LABS: Glucose,Whole Blood 137 mg/dL (75-99)
[2018-10-01] MEDS: INSULIN ASPART 100 UNIT/ML 1 ML 10 ML VIAL SQ SCH ×4 (06:45→18:04)
--- NOTE | 2018-10-01 06:51 | XR ---
EXAMINATION TYPE: XR chest 1V portable DATE OF EXAM: 10/01/2018 COMPARISON: 09/30/2018 INDICATION: Tube placement TECHNIQUE: Single frontal view of the chest is obtained. FINDINGS: The heart size is mildly prominent. The pulmonary vasculature is normal. The lungs are clear. Right central venous catheter sheath is at the right apex. Endotracheal tube tip is above the danna. Nasogastric tube transverses the thorax with tip in left upper quadrant of the abdomen. Electronic d evice overlies left chest. IMPRESSION: 1. Mild cardiomegaly
[2018-10-01] MEDS ORDERED: MORPHINE SULFATE 2 MG/ML SYRINGE IV PRN (07:12)
[2018-10-01] MEDS ORDERED: MORPHINE SULFATE 2 MG/ML SYRINGE IVP ONE (07:12)
[2018-10-01] MEDS ORDERED: SCOPOLAMINE 1.5MG/72HR PATCH TRANSDERM SCH (07:15)
[2018-10-01 07:18] LABS: ABG HCO3 26 mmol/L (21-25); ABG Oxygen Saturation 98.8 % (94-97); ABG PCO2 35 mmHg (35-45); ABG PH 7.48 (7.35-7.45); ABG PO2 97 mmHg (83-108); ABG TCO2 27 mmol/L (19-24)
[2018-10-01 08:38] LABS: Band Neutrophils % 5 %; Eosinophils # (M) 0.12 k/uL (0-0.7); Neutrophils % (M) 78 %; Nucleated Red Blood Cells 1 /100 WBC (0-0); Total Cells Counted 200
[2018-10-01 08:39] LABS: Lymphocytes # (M) 0.69 k/uL (1.0-4.8); Monocytes # (M) 1.27 k/uL (0-1.0); WBC 11.5 k/uL (3.8-10.6)
[2018-10-01] MEDS: POTASSIUM CHLORIDE 10 MEQ in WATER FOR INJECTION 1 100ML.BAG IVPB SCH (09:10)
[2018-10-01] MEDS: HEPARIN SOD,PORK IN 0.45% NACL 25,000 UNIT in 0.45% NACL 1 250ML.BAG IV SCH ×2 (09:11→20:52)
[2018-10-01] MEDS: PIPERACILLIN-TAZOBACTAM 3.375 GM in SODIUM CHLORIDE 0.9% 100 ML IVPB SCH ×3 (09:11→16:13)
[2018-10-01] MEDS: DILTIAZEM 50 MG in SODIUM CHLORIDE 0.9% 40 ML IV SCH ×3 (09:12→20:51)
[2018-10-01] MEDS: CHLORHEXIDINE GLUCONATE 15 ML CUP MUCOUS MEM SCH ×2 (09:13→20:49)
[2018-10-01] MEDS: PANTOPRAZOLE 40 MG/10 ML VIAL IVP SCH (09:13)
[2018-10-01] MEDS: MVI, ADULT NO.4 WITH VIT K 10 ML, TRACE (CONC-1ML/DOSE) 1 ML in AMINO ACID 5%-D15W+LYTE... IV SCH ×3 (09:13)
--- NOTE | 2018-10-01 10:33 | XR ---
EXAMINATION TYPE: XR abdomen 1V DATE OF EXAM: 10/01/2018 COMPARISON: 09/27/2018 INDICATION: Ileus TECHNIQUE: Single view abdomen supine view FINDINGS: Surgical skin hever are present over the anterior mid pelvis. Nonspecific bowel gas is present in t he midabdomen. No mass effect is evident. The bowel gas is diminished from comparison. Psoas margins faintly visualized are normal. No organomegaly is present. Electronic device overlies lateral left lower chest. Hyperostosis is present at the greater trochante r left hip. IMPRESSION: 1. Nonspecific abdomen. Bowel gas dilatation is diminished over the interval. Resolving ileus could b e considered.
[2018-10-01] MEDS: PROPOFOL 1,000 MG in EMPTY BAG 1 BAG IV SCH ×4 (10:41→20:50)
[2018-10-01 12:05] LABS: Glucose,Whole Blood 158 mg/dL (75-99)
--- NOTE | 2018-10-01 12:21 | P.PN ---
Subjective Progress Note Date: 10/01/18 Principal diagnosis: Status post exploratory laparotomy and ischemic bowel resection. Postoperative day # 4 This is a 68-year-old -[place] male patient who lives in [place] and the patient usually goes to the [facility] and [facility] for usual medical care. He came in to our emergency department because of abdominal pain. He is currently rehabilitating for substance abuse, IV drug abuse and he was in a [facility] house on [facility] where he developed increased abdominal pain initially in the suprapubic area and later on his lower abdomen bilaterally more so on the right and the pain was constant and radiating to his back. He came into the emergency department and he was seen by the ED physician. He was given IV morphine for pain control. White cell count was at 15.9. A computed tomography scan of the abdomen was done that showed dilated urinary bladder in addition to a large right-sided scrotal hernia containing the cecum and the terminal ileum. There was no evidence of any bowel obstruction. No evidence of any thoracic or abdominal aortic aneurysm or dissection. The patient initially lactic acid level was 6.7. He was started on IV fluids. He was found to be in atrial fibrillation with rapid ventricular response and he was placed on a Cardizem drip at 5 mg an hour and the patient was admitted to the hospital. I had a chance to evaluate this patient this afternoon. Upon my arrival the patient was in excruciating pain. He was hurting to the point where he was unable to lay down in bed. He was trying to get himself out of the bed. I noted some bloody urine in his Pickett catheter. Abdomen was quite tense and tender and there was direct and rebound tenderness. The right scrotum was quite swollen. No bowel sounds were appreciated. The concern was an incarcerated indirect hernia, with an acute abdomen. Based on that, I immediate recall general surgery and I asked him to come and evaluate this patient in the emergency department as soon as possible for possible surgical intervention of this indirect inguinal hernia. The ultrasound of the testicle showed a grade 4 right-sided testicular microlithiasis.. The patient has noted some progressive swelling in the right scrotum over the past 3 weeks. According to him this is a new finding. No nausea. No vomiting. No chest pain. On today's evaluation of 09/28/2008 and I'm seeing this patient in follow-up. Note that I saw this patient in the emergency department and the patient had an acute abdomen. He was immediately taken to the operating room. Intraoperatively, the patient was found to have ischemic bowel beginning in the distal ileum and extensively throughout the right colon and most of the transverse colon. The bowel was also noted to be strangulated in the right inguinal canal. During the surgery, the patient was noted to be hypotensive and he was started on pressors. He was placed on Rosendo-Synephrine. He underwent a expected to laparotomy, bowel resection and ileostomy was also created. Following that the patient was brought into the intensive care unit. He was kept intubated and on mechanical ventilator. Overnight, the pressors were discontinued. He was given a total of 4 L of IV fluids and currently is on a maintenance and this patient to a bicarb infusion with a rate of 1 25 mL an hour knowing that the patient has some underlying metabolic acidosis. He remains on a mechanical ventilator. He was quite asynchronous. I switched him to a VC plus molds. His current and a tidal volume of 450 with a rate of 14 and FiO2 of 50% with a PEEP of 5. His morning blood gases showed a pH of 7.32 with a pCO2 of 33 and pO2 of 119. The fluid balance is +3.4 L over the past 12 hours. He is producing urine output. He is sedated with Diprivan is calm and comfortable. NG tube is in place. Surgical wound site is clean. Ileostomy site is viable at this point in time. He is covered with broad-spectrum antibiotics with IV Zosyn. Hemoglobin is at 7.6. There was a slight jump in the creatinine which is up to 1.41 which is expected. On 09/29/2018, patient was evaluated in the ICU today, he is status post exploratory laparotomy and resection of what turned out to be an ischemic bowel. Patient was found to have ischemic bowel beginning in the distal ileum and extensively through the right colon and most of the transverse colon. He had a strangulated right inguinal hernia. During the surgery he was hypotensive requiring pressors and fluids, he was also placed on Rosendo- Synephrine. Presently in the ICU, remains on mechanical ventilation, his ventilator settings are basically the same tidal volume is 450, assist control rate of 14 of 5 and FiO2 is down to 40% today. ABG this morning showed a pO2 of 125 pCO2 of 40 pH of 7.40, he was still on a bicarb drip at 25 mL per hour, and I cut it down to 65 mL per hour. CBC was noted, WBC count is 8.8 hemoglobin is 7.3. Renal functioning is a bit worse, although he has a decent urine output, BUN is 46 creatinine is 1.71. Clearly the patient developed some acute kidney injury. Chest x-ray was reviewed, endotracheal tube seems to be in the proper position. There is evidence of bibasilar infiltrates, right more so than left. Patient remains on broad-spectrum antibiotics. He is presently on Zosyn. The rise in creatinine is expected considering his presentation. Patient is sedated, however I plan to withhold propofol, assess mental status, and possibly consider a weaning trial if possible. Reevaluated today on 09/30/2018, patient remains on mechanical ventilation, ventilator settings are tidal volume of 450 assist-control rate of 20 PEEP of 5 and FiO2 of 40%. Patient remains on Cardizem drip, heparin drip, propofol drip , TPN. Presently the propofol was placed on hold, and I plan to address the patient's mental status, and possibly give him a trial of weaning utilizing a pressure support and CPAP. Chest x-ray did show evidence of congestive changes , central vascular congestion, and small bilateral effusions were noted. Urine output seems to be excellent. There is some right basilar atelectasis, strongly doubt pneumonia. Reevaluated today on 10/01/2018, remains on mechanical ventilation, ventilator settings are assist control rate of 16, tidal volume of 450 FiO2 40% and PEEP of 5. Patient remains on heparin drip, propofol drip, TPN, and Cardizem drip. Remains on antibiotics as ordered by infectious disease. ABG this morning showed a pO2 of 97 pCO2 of 35 pH of 7.48. His PTT is therapeutic. CBC is relatively normal hemoglobin is low at 7.2. BUN remains elevated at 46, creatinine is 1.28, improving compared to the last few days. After my evaluation, propofol was discontinued, and I plan to awaken the patient, and assess if he could tolerate any weaning trials. His abdomen is still distended , and his ileostomy seems to be nonfunctional so far. Being followed by general surgery regarding this issue specifically. Objective - Vital Signs Vital signs: Vital Signs Temp 99.5 F 12/12/18 08:00 Pulse 88 10/01/18 11:00 Resp 26 H 10/01/18 11:00 BP 139/75 10/01/18 11:00 Pulse Ox 95 10/01/18 10:00 Intake & Output 09/30/18 10/01/18 10/01/18 18:59 06:59 18:59 Intake Total 2724.947 962.25 1681.976 Output Total 1040 765 375 Balance 1684.947 197.25 1306.976 Weight 70.4 kg 70.4 kg Intake: IV 2460 820 540 Anidulafungin 100 mg In 100 Sodium Chloride 0.9% 100 ml @ 84 mls/hr IVPB DAILY @2100 [facility] Rx#:[id number] Dextrose 5% in Water 1, 750 000 ml @ 75 mls/hr IV . [id number] [place] with Sodium Bicarb (1 Meq/ml) 150 ml Rx#:[id number] KVO 80 Mvi, Adult No.4 with Vit 510 60 K 10 ml Parenteral Electrolytes 20 ml Trace (Conc-1Ml/Dose) 1 ml In Amino Acid 5%-D15w 1,000 ml @ 30 mls/hr IV .Q24H [facility] Rx#:[id number] Mvi, Adult No.4 with Vit 660 360 K 10 ml Trace (Conc-1Ml/ Dose) 1 ml In Amino Acid 5%-D15w+Lytes*E* 1,000 ml @ 60 mls/hr IV .[id number] [facility] Rx#:[id number] Piperacillin-Tazobactam 3 200 100 .375 gm In Sodium Chloride 0.9% 100 ml @ 25 mls/hr IVPB Q8HR [facility] Rx# :[id number] Potassium Chloride 20 meq 1000 In Water For Injection 1 100ml.bag @ 50 mls/hr IVPB Q2H [facility] Rx#: [id number] Intake, IV Titration 264.947 142.25 1141.976 Amount Diltiazem 50 mg In Sodium 50 42.25 Chloride 0.9% 40 ml @ 5 MG/HR 5 mls/hr IV .Q10H [facility] Rx#:[id number] Heparin Sod,Pork in 0.45% 28.6 NaCl 25,000 unit In 0.45 % NaCl 1 250ml.bag @ 21 UNITS/KG/HR 14.42 mls/hr IV .[id number] [facility] Rx#: [id number] Heparin Sod,Pork in 0.45% 119.509 NaCl 25,000 unit In 0.45 % NaCl 1 500ml.bag @ 12 UNITS/KG/HR 16 mls/hr IV .Q24H [facility] Rx#:[id number] Mvi, Adult No.4 with Vit 1011 K 10 ml Trace (Conc-1Ml/ Dose) 1 ml In Amino Acid 5%-D15w+Lytes*E* 1,000 ml @ 60 mls/hr IV .[id number] [facility] Rx#:[id number] Propofol 1,000 mg In 66.838 100 130.976 Empty Bag 1 bag @ Titrate IV .Q0M [facility] Rx#: [id number] Output: Gastric Drainage 25 Urine 1040 640 325 Emesis 100 50 Other: Voiding Method Indwelling Catheter Indwelling Catheter Indwelling Catheter ABP, PAP, CO, CI - Last Documented Arterial Blood Pressure 120/56 - Exam Physical Exam: Revealed a 68-year-old black male on mechanical ventilation, sedated, in no distress. Endotracheal tube and orogastric tube are noted to be intact. Head: Atraumatic, normocephalic, HEENT: PERRLA, EOMI, moist mucous membranes. [Neck is supple.] [No neck masses. ] [No thyromegaly.] [No JVD.] Chest: [Crackles and rhonchi bilaterally especially at the bases, endotracheal tube is intact..] Cardiac Exam: [Normal S1 and S2, no S3 gallop, no murmur.] Abdomen: [Surgical wound is clean, ileostomy bag was noted, seems to be relatively empty, ileostomy seems dark, there is dark blood noted in the bag/ minimal amount. No rebound, no tenderness, no bowel sounds. Extremities: [No clubbing, no edema, no cyanosis.] Neurological Exam: Cannot be assessed, patient is sedated, on propofol. However I plan to discontinue propofol, and addressed evaluate mental status later. Psychiatric: Could not be assessed patient remains sedated on propofol. Skin: Surgical site seems to be clean and dry. - Labs CBC & Chem 7: 10/01/18 04:10 10/01/18 04:10 Labs: Abnormal Lab Results - Last 24 Hours (Table) 09/30/18 09/30/18 09/30/18 Range/Units 11:55 12:46 18:09 WBC (3.8-10.6) k/uL RBC (4.30-5.90) m/uL Hgb (13.0-17.5) gm/dL Hct (39.0-53.0) % RDW (11.5-15.5) % Neutrophils # (Manual) (1.3-7.7) k/uL Lymphocytes # (Manual) (1.0-4.8) k/uL Monocytes # (Manual) (0-1.0) k/uL Nucleated RBCs (0-0) /100 WBC APTT 38.4 H (22.0-30.0) sec ABG pH (7.35-7.45) ABG HCO3 (21-25) mmol/L ABG Total CO2 (19-24) mmol/L ABG O2 Saturation (94-97) % Chloride (98-107) mmol/L BUN (9-20) mg/dL Creatinine (0.66-1.25) mg/dL Glucose (74-99) mg/dL POC Glucose (mg/dL) 144 H 150 H (75-99) mg/dL Calcium (8.4-10.2) mg/dL Magnesium (1.6-2.3) mg/dL 09/30/18 10/01/18 10/01/18 Range/Units 21:15 00:20 04:10 WBC 11.5 H (3.8-10.6) k/uL RBC 2.50 L (4.30-5.90) m/uL Hgb 7.2 L (13.0-17.5) gm/dL Hct 22.0 L (39.0-53.0) % RDW 18.4 H (11.5-15.5) % Neutrophils # (Manual) 9.50 H (1.3-7.7) k/uL Lymphocytes # (Manual) 0.69 L (1.0-4.8) k/uL Monocytes # (Manual) 1.27 H (0-1.0) k/uL Nucleated RBCs 1 H (0-0) /100 WBC APTT 52.8 H (22.0-30.0) sec ABG pH (7.35-7.45) ABG HCO3 (21-25) mmol/L ABG Total CO2 (19-24) mmol/L ABG O2 Saturation (94-97) % Chloride (98-107) mmol/L BUN (9-20) mg/dL Creatinine (0.66-1.25) mg/dL Glucose (74-99) mg/dL POC Glucose (mg/dL) 139 H (75-99) mg/dL Calcium (8.4-10.2) mg/dL Magnesium (1.6-2.3) mg/dL 18 10/01/18 10/01/18 Range/Units 04:10 04:10 06:43 WBC (3.8-10.6) k/uL RBC (4.30-5.90) m/uL Hgb (13.0-17.5) gm/dL Hct (39.0-53.0) % RDW (11.5-15.5) % Neutrophils # (Manual) (1.3-7.7) k/uL Lymphocytes # (Manual) (1.0-4.8) k/uL Monocytes # (Manual) (0-1.0) k/uL Nucleated RBCs (0-0) /100 WBC APTT 47.0 H (22.0-30.0) sec ABG pH (7.35-7.45) ABG HCO3 (21-25) mmol/L ABG Total CO2 (19-24) mmol/L ABG O2 Saturation (94-97) % Chloride 109 H (98-107) mmol/L BUN 46 H (9-20) mg/dL Creatinine 1.28 H (0.66-1.25) mg/dL Glucose 152 H (74-99) mg/dL POC Glucose (mg/dL) 137 H (75-99) mg/dL Calcium 7.8 L (8.4-10.2) mg/dL Magnesium 2.7 H (1.6-2.3) mg/dL 18 10/01/18 Range/Units 07:16 12:04 WBC (3.8-10.6) k/uL RBC (4.30-5.90) m/uL Hgb (13.0-17.5) gm/dL Hct (39.0-53.0) % RDW (11.5-15.5) % Neutrophils # (Manual) (1.3-7.7) k/uL Lymphocytes # (Manual) (1.0-4.8) k/uL Monocytes # (Manual) (0-1.0) k/uL Nucleated RBCs (0-0) /100 WBC APTT (22.0-30.0) sec ABG pH 7.48 H (7.35-7.45) ABG HCO3 26 H (21-25) mmol/L ABG Total CO2 27 H (19-24) mmol/L ABG O2 Saturation 98.8 H (94-97) % Chloride (98-107) mmol/L BUN (9-20) mg/dL Creatinine (0.66-1.25) mg/dL Glucose (74-99) mg/dL POC Glucose (mg/dL) 158 H (75-99) mg/dL Calcium (8.4-10.2) mg/dL Magnesium (1.6-2.3) mg/dL Microbiology - Last 24 Hours (Table) 09/27/18 19:43 Gram Stain - Final Sputum Sputum Culture - Final Assessment and Plan Assessment: Impression: 1 status post exploratory laparotomy, and resection of ischemic bowel secondary to strangulated right inguinal hernia and chronic atrial fibrillation. Patient is status post ileostomy postoperative day #4 2 postoperative respiratory failure, expected, considering the extensiveness of the ischemic bowel and considering the presentation. Patient had profound metabolic acidosis resolved, sodium bicarb was discontinued. 3 acute kidney injury secondary to hypotension secondary to abdominal sepsis. Possible septic shock on presentation requiring pressors and fluid boluses in the operating room. 4 multiple comorbidities including HIV, on treatment, peripheral vessel occlusive disease, chronic atrial fibrillation, previous AICD placement for cardiomyopathy, history of IV drug abuse, undergoing rehabilitation. Acute lactic acidosis on presentation secondary to ischemic bowel and acute leukocytosis secondary to bowel ischemia. Recommendation: Continue present supportive care measures including ventilatory support, nutritional support on TPN, patient obviously developed acute kidney injury which is expected considering his presentation of bowel ischemia and hypotension requiring pressors on presentation. His renal profile seems to be improving, creatinine is down to 1. 28 from 1.71 2 days ago. Plan to give the patient a weaning trial today, he will be off propofol, we'll assess mental status, we will likely try a trial of pressure support and CPAP mode of mechanical ventilation and possibly weaning and extubation if tolerated. If not patient will be re-sedated again and we'll address that in the next 24 hours. Prognosis remains guarded, patient remains critically ill. Critical care time is 33minutes. Time with Patient: Greater than 30
--- NOTE | 2018-10-01 12:51 | P.PN ---
Subjective Progress Note Date: 10/01/18 Patient seen and examined at bedside. Patient did have an episode of emesis overnight, NG tube has been reevaluated and flushed with more appropriate output. ICU is attempting sedation holiday. The patient is still on mechanical ventilation. Abdominal distention is noted and mildly improved from yesterday. Patient did have an abdominal x-ray that shows improving bowel distention. Objective - Vital Signs Vital signs: Vital Signs Temp 99.5 F 10/01/18 12:00 Pulse 89 10/01/18 12:00 Resp 24 10/01/18 12:00 BP 100/69 10/01/18 12:00 Pulse Ox 98 10/01/18 12:00 Intake & Output 09/30/18 10/01/18 10/01/18 18:59 06:59 18:59 Intake Total 2724.947 962.25 1681.976 Output Total 1040 765 375 Balance 1684.947 197.25 1306.976 Weight 70.4 kg 70.4 kg Intake: IV 2460 820 540 Anidulafungin 100 mg In 100 Sodium Chloride 0.9% 100 ml @ 84 mls/hr IVPB DAILY @2100 [facility] Rx#:[id number] Dextrose 5% in Water 1, 750 000 ml @ 75 mls/hr IV . [id number] [place] with Sodium Bicarb (1 Meq/ml) 150 ml Rx#:[id number] KVO 80 Mvi, Adult No.4 with Vit 510 60 K 10 ml Parenteral Electrolytes 20 ml Trace (Conc-1Ml/Dose) 1 ml In Amino Acid 5%-D15w 1,000 ml @ 30 mls/hr IV .Q24H [facility] Rx#:[id number] Mvi, Adult No.4 with Vit 660 360 K 10 ml Trace (Conc-1Ml/ Dose) 1 ml In Amino Acid 5%-D15w+Lytes*E* 1,000 ml @ 60 mls/hr IV .[id number] [facility] Rx#:[id number] Piperacillin-Tazobactam 3 200 100 .375 gm In Sodium Chloride 0.9% 100 ml @ 25 mls/hr IVPB Q8HR [facility] Rx# :[id number] Potassium Chloride 20 meq 1000 In Water For Injection 1 100ml.bag @ 50 mls/hr IVPB Q2H [facility] Rx#: [id number] Intake, IV Titration 264.947 142.25 1141.976 Amount Diltiazem 50 mg In Sodium 50 42.25 Chloride 0.9% 40 ml @ 5 MG/HR 5 mls/hr IV .Q10H [facility] Rx#:[id number] Heparin Sod,Pork in 0.45% 28.6 NaCl 25,000 unit In 0.45 % NaCl 1 250ml.bag @ 21 UNITS/KG/HR 14.42 mls/hr IV .K02S99H [facility] Rx#: [id number] Heparin Sod,Pork in 0.45% 119.509 NaCl 25,000 unit In 0.45 % NaCl 1 500ml.bag @ 12 UNITS/KG/HR 16 mls/hr IV .Q24H [facility] Rx#:[id number] Mvi, Adult No.4 with Vit 1011 K 10 ml Trace (Conc-1Ml/ Dose) 1 ml In Amino Acid 5%-D15w+Lytes*E* 1,000 ml @ 60 mls/hr IV .L29H56F [facility] Rx#:[id number] Propofol 1,000 mg In 66.838 100 130.976 Empty Bag 1 bag @ Titrate IV .Q0M [facility] Rx#: [id number] Output: Gastric Drainage 25 Urine 1040 640 325 Emesis 100 50 Other: Voiding Method Indwelling Catheter Indwelling Catheter Indwelling Catheter ABP, PAP, CO, CI - Last Documented Arterial Blood Pressure 126/58 - Constitutional Constitutional Comment(s): Vented/Sedated - Gastrointestinal Gastrointestinal Comment(s): Distended - mildly improved from yesterday, ostomy is patent with some mild bloody output - no obvious flatus in the bag, midline incision intact with hever - Labs CBC & Chem 7: 10/01/18 04:10 10/01/18 04:10 Labs: Abnormal Lab Results - Last 24 Hours (Table) 09/30/18 09/30/18 09/30/18 Range/Units 12:46 18:09 21:15 WBC (3.8-10.6) k/uL RBC (4.30-5.90) m/uL Hgb (13.0-17.5) gm/dL Hct (39.0-53.0) % RDW (11.5-15.5) % Neutrophils # (Manual) (1.3-7.7) k/uL Lymphocytes # (Manual) (1.0-4.8) k/uL Monocytes # (Manual) (0-1.0) k/uL Nucleated RBCs (0-0) /100 WBC APTT 52.8 H (22.0-30.0) sec ABG pH (7.35-7.45) ABG HCO3 (21-25) mmol/L ABG Total CO2 (19-24) mmol/L ABG O2 Saturation (94-97) % Chloride (98-107) mmol/L BUN (9-20) mg/dL Creatinine (0.66-1.25) mg/dL Glucose (74-99) mg/dL POC Glucose (mg/dL) 144 H 150 H (75-99) mg/dL Calcium (8.4-10.2) mg/dL Magnesium (1.6-2.3) mg/dL 10/01/18 10/01/18 10/01/18 Range/Units 00:20 04:10 04:10 WBC 11.5 H (3.8-10.6) k/uL RBC 2.50 L (4.30-5.90) m/uL Hgb 7.2 L (13.0-17.5) gm/dL Hct 22.0 L (39.0-53.0) % RDW 18.4 H (11.5-15.5) % Neutrophils # (Manual) 9.50 H (1.3-7.7) k/uL Lymphocytes # (Manual) 0.69 L (1.0-4.8) k/uL Monocytes # (Manual) 1.27 H (0-1.0) k/uL Nucleated RBCs 1 H (0-0) /100 WBC APTT (22.0-30.0) sec ABG pH (7.35-7.45) ABG HCO3 (21-25) mmol/L ABG Total CO2 (19-24) mmol/L ABG O2 Saturation (94-97) % Chloride 109 H (98-107) mmol/L BUN 46 H (9-20) mg/dL Creatinine 1.28 H (0.66-1.25) mg/dL Glucose 152 H (74-99) mg/dL POC Glucose (mg/dL) 139 H (75-99) mg/dL Calcium 7.8 L (8.4-10.2) mg/dL Magnesium 2.7 H (1.6-2.3) mg/dL 10/01/18 10/01/18 10/01/18 Range/Units 04:10 06:43 07:16 WBC (3.8-10.6) k/uL RBC (4.30-5.90) m/uL Hgb (13.0-17.5) gm/dL Hct (39.0-53.0) % RDW (11.5-15.5) % Neutrophils # (Manual) (1.3-7.7) k/uL Lymphocytes # (Manual) (1.0-4.8) k/uL Monocytes # (Manual) (0-1.0) k/uL Nucleated RBCs (0-0) /100 WBC APTT 47.0 H (22.0-30.0) sec ABG pH 7.48 H (7.35-7.45) ABG HCO3 26 H (21-25) mmol/L ABG Total CO2 27 H (19-24) mmol/L ABG O2 Saturation 98.8 H (94-97) % Chloride (98-107) mmol/L BUN (9-20) mg/dL Creatinine (0.66-1.25) mg/dL Glucose (74-99) mg/dL POC Glucose (mg/dL) 137 H (75-99) mg/dL Calcium (8.4-10.2) mg/dL Magnesium (1.6-2.3) mg/dL 10/01/18 Range/Units 12:04 WBC (3.8-10.6) k/uL RBC (4.30-5.90) m/uL Hgb (13.0-17.5) gm/dL Hct (39.0-53.0) % RDW (11.5-15.5) % Neutrophils # (Manual) (1.3-7.7) k/uL Lymphocytes # (Manual) (1.0-4.8) k/uL Monocytes # (Manual) (0-1.0) k/uL Nucleated RBCs (0-0) /100 WBC APTT (22.0-30.0) sec ABG pH (7.35-7.45) ABG HCO3 (21-25) mmol/L ABG Total CO2 (19-24) mmol/L ABG O2 Saturation (94-97) % Chloride (98-107) mmol/L BUN (9-20) mg/dL Creatinine (0.66-1.25) mg/dL Glucose (74-99) mg/dL POC Glucose (mg/dL) 158 H (75-99) mg/dL Calcium (8.4-10.2) mg/dL Magnesium (1.6-2.3) mg/dL Microbiology - Last 24 Hours (Table) 09/27/18 19:43 Gram Stain - Final Sputum Sputum Culture - Final Assessment and Plan (1) Ischemia, bowel Narrative/Plan: Postoperative day #4 from exploratory laparotomy and ischemic bowel resection - ICU management, vent management, sedation management - continue sedation holidays and attempts at weaning per ICU - Continue Pickett catheter, continue nasogastric tube decompression, patient has a high likelihood of prolonged ileus due to recent surgery and ischemic bowel, this would be expected - Hold any feeds, okay to begin parenteral nutrition - Okay for anticoagulation - Cardiology recommendations appreciated - Would recommend discussion with daughter/family for long-term care goals - Prognosis very guarded/poor Current Visit: Yes Status: Acute Code(s): K55.9 - VASCULAR DISORDER OF INTESTINE, UNSPECIFIED SNOMED Code(s): 10398474
[2018-10-01] MEDS ORDERED: MORPHINE SULFATE 4 MG/ML SYRINGE IVP STA (14:35)
[2018-10-01 18:02] LABS: Glucose,Whole Blood 152 mg/dL (75-99)
--- NOTE | 2018-10-01 19:59 | PN ---
PROGRESS NOTE This is a gentleman who has atrial fibrillation with a controlled ventricular rate. It is unclear whether this is a new onset atrial fib or he has a chronic persistent atrial fib. He had a bowel ischemia, extensive surgery and still on the ventilator. There is distention of the abdomen. He remains critical and the patient's condition remains critical and we will continue his heparin for the time being, but I have advised the nurse to call and check with Dr. Cline if patient should continue the heparin or hold it because of some abdominal distention. The patient is on a low-dose heparin protocol at this time. His rate is also fairly well controlled. Overall prognosis for this patient is poor. From a cardiac standpoint I am recommending that we continue current medical regimen and seek input from the surgeon regarding the continuation of IV heparin at this dose. His blood pressure is about 98/60, pulse rate is about 90 per minute, irregular. JVD is not evident. S1, S2 with irregularity noted. Short systolic murmur noted. Bilateral air entry is noted assisted by the ventilator. Rest of physical examination is unchanged. Prognosis is poor. We will continue rate control but I will check with the surgeon regarding the heparin usage. MMODL / IJN: [id number] /
[2018-10-01] MEDS: ANIDULAFUNGIN 100 MG in SODIUM CHLORIDE 0.9% 100 ML IVPB SCH (20:52)
[2018-10-01] MEDS ORDERED: SODIUM CHLORIDE 0.9% 500 ML 500 ML IV ONE (22:23)
[2018-10-01] MEDS: SODIUM CHLORIDE 0.9% 1,000 ML IV SCH (22:32)
--- NOTE | 2018-10-01 23:08 | P.PN ---
Subjective This is a pleasant 68 years old male with past medical history of hypertension and no much home medication presents because of abdominal pain In the emergency room he was afebrile, tachycardic with heart rate range between 110-144. Tachypneic with heart rate 25 blood pressure 137/88. Labs reviewed showing WBC 13.9 K, hemoglobin 9.1, platelets 246. INR 1.0. Sodium 141. Potassium 3.2. High lactic acid 6.7, coming down to 3.1, with elevated AST at 72. With normal ALT. Troponin is elevated at 0.05 and 0.08. Amylase is high but lipase within normal at 158. Urinalysis showing moderate blood. Chest x-ray showed cardiomegaly with no active cardiopulmonary disease. The patient was shown mild changes of congestive CHF. CT of the abdomen and pelvis showing right-sided inguinal and scrotal hernia contents the cecum and terminal ileum. But don't us obstruction. However in the abdominal examination patient has significant abdominal tenderness and scrotal tenderness with his swelling. This was discussed with the surgical call Dr. Cline and the plan was to take him to the surgery for his acute abdomen and after that may be to the intensive care unit. I spoke with the patient and he able to do the surgery also I spoke with the patient daughter upon his request Mrs. Pederson at [phone]. And updated her with her father situation and all her rashes were answered to her satisfaction. 09/28/2018 Patient is status post exploratory laparotomy with action and ileostomy mostly secondary to incarcerated hernia. Is currently in the ICU intubated and sedated. With hematuria in the Pickett catheter. ALLERGY consultation is appreciated most likely this is secondary to Pickett catheter area surgery R following the patient as well as critical care unit. Cardiology also on the case. Patient remains on sodium bicarb, Protonix, IV antibiotics with Zosyn. His W Blas 5.6K. Hemoglobin 7.6. Sodium 140. Creatinine 1.4. I called his daughter Mrs. Pederson at [phone] and left a message to call me back. 09/29/2018 Patient is status post exploratory laparotomy with action and ileostomy mostly secondary to incarcerated hernia.possible some ischemic colitis . cardiology team recommended anticoagulation once he is more stable. Is currently in the ICU intubated and sedated. With hematuria in the Pickett catheter. urology consultation is appreciated most likely his hematuria is secondary to Pickett catheter area surgery R following the patient as well as critical care unit. Cardiology also on the case.pt was evaluated by ID team today Patient remains on sodium bicarb, Protonix, IV antibiotics with Zosyn. His WBC 8.8 K. Hemoglobin 7.3. Sodium 140. Creatinine 1.7. I called his daughter Mrs. Pederson at [phone] and she HAS called back and she was updated about her father condition as per staff. ID team evaluation is appreciated for possible treatment of HIV status. they agree with antibiotic therapy of zosyn and added anti-fungal therapy with Eraxis. 09/30/2018 pt is in ICU sedated and intubated . pt is been followed up by the critical care team . his stomy bag is still empty, abd is slightly distended. cardiology team recommended anticoagulation which is ok as per surgery team. he was started on heparin drip. With hematuria in the Pickett catheter is improving. urology consultation is appreciated most likely his hematuria is secondary to Pickett catheter area surgery R following the patient as well as critical care unit. Cardiology also on the case.pt was evaluated by ID team today His WBC 9.8 K. Hemoglobin 7.3 stable. Sodium 140. Creatinine 1.3 which keeps improving. ID team evaluation is appreciated for possible treatment of HIV status. they agree with antibiotic therapy of zosyn and added anti-fungal therapy with Eraxis. 10/01/2018 pt was seen and examined in the ICU, he still intubated and sedated , sedation holiday was tried today by the pulmonary/critical care team. pt has a little abd distension , abdominal x-ray : less gaseous distension , possible improving ileus, colostomy bag having some dark brown secretion, no enteral feeding , NG tube is in place and was flushed today as pt vomited once last night , TPN nutrition was started. surgical team is following the pt Objective - Vital Signs Vital signs: Vital Signs Temp 98.8 F 10/01/18 16:00 Pulse 86 10/01/18 22:00 Resp 27 H 10/01/18 22:00 BP 93/68 10/01/18 22:00 Pulse Ox 95 10/01/18 22:00 Intake & Output 12/12/18 12/12/18 12/13/18 06:59 18:59 06:59 Intake Total 1183.65 2366.418 338.223 Output Total 765 595 100 Balance 418.65 1771.418 238.223 Weight 70.4 kg 70.4 kg Intake: IV 820 1020 320 Anidulafungin 100 mg In 100 Sodium Chloride 0.9% 100 ml @ 84 mls/hr IVPB DAILY @2100 [facility] Rx#:[id number] KVO 200 80 Mvi, Adult No.4 with Vit 60 K 10 ml Parenteral Electrolytes 20 ml Trace (Conc-1Ml/Dose) 1 ml In Amino Acid 5%-D15w 1,000 ml @ 30 mls/hr IV .Q24H [facility] Rx#:[id number] Mvi, Adult No.4 with Vit 660 720 240 K 10 ml Trace (Conc-1Ml/ Dose) 1 ml In Amino Acid 5%-D15w+Lytes*E* 1,000 ml @ 60 mls/hr IV .[id number] [facility] Rx#:[id number] Piperacillin-Tazobactam 3 100 .375 gm In Sodium Chloride 0.9% 100 ml @ 25 mls/hr IVPB Q8HR [facility] Rx# :[id number] Intake, IV Titration 363.65 1346.418 18.223 Amount Diltiazem 50 mg In Sodium 42.25 44.25 14 Chloride 0.9% 40 ml @ 5 MG/HR 5 mls/hr IV .Q10H [facility] Rx#:[id number] Heparin Sod,Pork in 0.45% 221.4 NaCl 25,000 unit In 0.45 % NaCl 1 250ml.bag @ 21 UNITS/KG/HR 14.42 mls/hr IV .[id number] [facility] Rx#: [id number] Mvi, Adult No.4 with Vit 1011 K 10 ml Trace (Conc-1Ml/ Dose) 1 ml In Amino Acid 5%-D15w+Lytes*E* 1,000 ml @ 60 mls/hr IV .[id number] [facility] Rx#:[id number] Propofol 1,000 mg In 100 291.168 4.223 Empty Bag 1 bag @ Titrate IV .Q0M [facility] Rx#: [id number] Output: Gastric Drainage 25 Urine 640 545 100 Emesis 100 50 Other: Voiding Method Indwelling Catheter Indwelling Catheter ABP, PAP, CO, CI - Last Documented Arterial Blood Pressure 112/58 - Exam GENERAL: The patient is intubated and sedated, not in any acute distress. Well developed, well nourished. HEENT: Pupils are round and equally reacting to light. EOMI. No scleral icterus. No conjunctival pallor. Normocephalic, atraumatic. No pharyngeal erythema. No thyromegaly. CARDIOVASCULAR: S1 and S2 present. No murmurs, rubs, or gallops. PULMONARY: Chest is clear to auscultation, no wheezing or crackles. -ABDOMEN: Soft, incision is closed with no surrounding cellulitis or discharge.. No palpable organomegaly. Pickett catheter in place MUSCULOSKELETAL: No joint swelling or deformity. EXTREMITIES: No cyanosis, clubbing, or pedal edema. NEUROLOGICAL: Gross neurological examination did not reveal any focal deficits. SKIN: No rashes - Labs CBC & Chem 7: 10/01/18 04:10 10/01/18 04:10 Labs: Abnormal Lab Results - Last 24 Hours (Table) 10/01/18 10/01/18 10/01/18 Range/Units 00:20 04:10 04:10 WBC 11.5 H (3.8-10.6) k/uL RBC 2.50 L (4.30-5.90) m/uL Hgb 7.2 L (13.0-17.5) gm/dL Hct 22.0 L (39.0-53.0) % RDW 18.4 H (11.5-15.5) % Neutrophils # (Manual) 9.50 H (1.3-7.7) k/uL Lymphocytes # (Manual) 0.69 L (1.0-4.8) k/uL Monocytes # (Manual) 1.27 H (0-1.0) k/uL Nucleated RBCs 1 H (0-0) /100 WBC APTT (22.0-30.0) sec ABG pH (7.35-7.45) ABG HCO3 (21-25) mmol/L ABG Total CO2 (19-24) mmol/L ABG O2 Saturation (94-97) % Chloride 109 H (98-107) mmol/L BUN 46 H (9-20) mg/dL Creatinine 1.28 H (0.66-1.25) mg/dL Glucose 152 H (74-99) mg/dL POC Glucose (mg/dL) 139 H (75-99) mg/dL Calcium 7.8 L (8.4-10.2) mg/dL Magnesium 2.7 H (1.6-2.3) mg/dL 10/01/18 10/01/18 10/01/18 Range/Units 04:10 06:43 07:16 WBC (3.8-10.6) k/uL RBC (4.30-5.90) m/uL Hgb (13.0-17.5) gm/dL Hct (39.0-53.0) % RDW (11.5-15.5) % Neutrophils # (Manual) (1.3-7.7) k/uL Lymphocytes # (Manual) (1.0-4.8) k/uL Monocytes # (Manual) (0-1.0) k/uL Nucleated RBCs (0-0) /100 WBC APTT 47.0 H (22.0-30.0) sec ABG pH 7.48 H (7.35-7.45) ABG HCO3 26 H (21-25) mmol/L ABG Total CO2 27 H (19-24) mmol/L ABG O2 Saturation 98.8 H (94-97) % Chloride (98-107) mmol/L BUN (9-20) mg/dL Creatinine (0.66-1.25) mg/dL Glucose (74-99) mg/dL POC Glucose (mg/dL) 137 H (75-99) mg/dL Calcium (8.4-10.2) mg/dL Magnesium (1.6-2.3) mg/dL 18 10/01/18 Range/Units 12:04 17:59 WBC (3.8-10.6) k/uL RBC (4.30-5.90) m/uL Hgb (13.0-17.5) gm/dL Hct (39.0-53.0) % RDW (11.5-15.5) % Neutrophils # (Manual) (1.3-7.7) k/uL Lymphocytes # (Manual) (1.0-4.8) k/uL Monocytes # (Manual) (0-1.0) k/uL Nucleated RBCs (0-0) /100 WBC APTT (22.0-30.0) sec ABG pH (7.35-7.45) ABG HCO3 (21-25) mmol/L ABG Total CO2 (19-24) mmol/L ABG O2 Saturation (94-97) % Chloride (98-107) mmol/L BUN (9-20) mg/dL Creatinine (0.66-1.25) mg/dL Glucose (74-99) mg/dL POC Glucose (mg/dL) 158 H 152 H (75-99) mg/dL Calcium (8.4-10.2) mg/dL Magnesium (1.6-2.3) mg/dL Assessment and Plan Assessment: Incarcerated right inguinal hernia, status post exploratory laparotomy, bowel resection and ileostomy acute hypoxic resp failure , expected . intubated on vent Anemia Elevated Lactic acid, resolved Elevated troponin, cardiology team recommended anticoagulation Hematuria, improving acute kid injury, improving peritonitis and abd infection , expected . on iv antibiotic chrnoic a fib cardiomyopathy h/o previous iv drug abuse Plan: This is a pleasant 68 years old male who presents with acute abdomen secondary to incarcerated hernia. Patient status surgical resection and ileostomy. Several consults are following the patient including surgery, neurology, critical care/pulmonary, cardiology. Continue with antibiotics. Continue with IV fluids. NG tube. Nothing by mouth.Labs and medication were reviewed. After surgery patient might be going to the intensive care unit. Continue same treatment. Continue with symptomatic treatment. Resume home medication. Monitor lytes and vitals. DVT and GI prophylaxis. Further recommendations of the clinical course of the patient Prognosis is guarded
[2018-10-01 23:51] LABS: Glucose,Whole Blood 154 mg/dL (75-99)
[2018-10-02] MEDS: INSULIN ASPART 100 UNIT/ML 1 ML 10 ML VIAL SQ SCH ×4 (00:45→18:19)
[2018-10-02] MEDS: PIPERACILLIN-TAZOBACTAM 3.375 GM in SODIUM CHLORIDE 0.9% 100 ML IVPB SCH ×4 (00:45→23:58)
[2018-10-02] MEDS ORDERED: MVI, ADULT NO.4 WITH VIT K 10 ML, TRACE (CONC-1ML/DOSE) 1 ML, POTASSIUM PHOSPHATE 15 MM... IV SCH ×6 (01:00)
[2018-10-02] MEDS: MORPHINE SULFATE 4 MG/ML SYRINGE IV PRN (01:27)
[2018-10-02] MEDS: PROPOFOL 1,000 MG in EMPTY BAG 1 BAG IV SCH ×6 (04:10→23:58)
[2018-10-02 05:06] LABS: Glucose,Whole Blood 125 mg/dL (75-99)
[2018-10-02 05:44] LABS: Anisocytosis Slight; HCT 21.7 % (39.0-53.0); Hypochromasia Marked; MCH 28.7 pg (25.0-35.0); MCHC 31.2 g/dL (31.0-37.0); MCV 91.9 fL (80.0-100.0); Mean Platelet Volume 10.6; Platelet Count 121 k/uL (150-450); Poikilocytosis Slight; RBC 2.36 m/uL (4.30-5.90); RDW 18.7 % (11.5-15.5)
[2018-10-02 05:47] LABS: HGB 6.8 gm/dL (13.0-17.5)
[2018-10-02 06:18] LABS: Band Neutrophils % 43 %; Eosinophils # (M) 0.15 k/uL (0-0.7); Metamyelocytes % 3 %; Myelocytes # (M) 0.15 k/uL (0); Myelocytes % 1 %; Neutrophils % (M) 44 %; Nucleated Red Blood Cells 3 /100 WBC (0-0); Total Cells Counted 200
[2018-10-02 06:19] LABS: Metamyelocytes # (M) 0.45 k/uL (0)
[2018-10-02 06:20] LABS: Anisocytosis (M) Present; Poikilocytosis (M) Present
[2018-10-02 06:21] LABS: Polychromasia Present; Tear Drop Cells Present
[2018-10-02 06:22] LABS: Toxic Granulation Present
[2018-10-02 06:34] LABS: Calcium 7.5 mg/dL (8.4-10.2); Magnesium 2.8 mg/dL (1.6-2.3); Potassium 3.9 mmol/L (3.5-5.1)
[2018-10-02] MEDS ORDERED: Potassium Replacement Protocol 1 EACH MISC MISCELLANE PRN (06:57)
--- NOTE | 2018-10-02 07:16 | XR ---
EXAMINATION TYPE: XR chest 1V portable DATE OF EXAM: 10/02/2018 CLINICAL HISTORY: Difficulty breathing progress study. TECHNIQUE: Single AP portable semiupright view of the chest is obtained. COMPARISON: Chest x-ray from one day earlier and older studies. FINDINGS: An endotracheal tube and orogastric tube are stable in appearance. There is additional spi nal stimulator device and right supraclavicular catheter of uncertain etiology. There is stable cardi omegaly with increasing central vascular congestion and atherosclerotic and ectatic thoracic aorta. T here is worsening right basilar opacity. High riding humeral heads consistent with chronic rotator cu ff tears bilaterally is redemonstrated. Surgical change distal right clavicle is again seen. IMPRESSION: There is cardiomegaly with increasing central vascular congestion and worsening right bas ilar opacity felt to reflect small right pleural effusion and associated right basilar atelectasis an d/or infiltrate. Correlate for worsening CHF exacerbation.
[2018-10-02 07:51] LABS: ABG Base Excess -3.4 mmol/L; ABG HCO3 22 mmol/L (21-25); ABG PCO2 36 mmHg (35-45); ABG PH 7.39 (7.35-7.45); ABG PO2 78 mmHg (83-108); ABG TCO2 23 mmol/L (19-24)
--- NOTE | 2018-10-02 08:27 | PN ---
PROGRESS NOTE Mr. Santana is status post bowel resection. He has atrial fibrillation paroxysmal in nature, maintaining sinus rhythm. However, he has more distention of the abdomen and hemoglobin has dropped to 6.9. I am recommending that we discontinue IV heparin and place him on subcu heparin and we will let Dr. Cline know about this. He has a fairly decent urine output and is maintaining his blood pressure well. S1, S2 heard normally, short systolic murmur noted. Lungs reveal diminished air entry. Abdomen is distended. Lower extremities reveal diminished pulses. Rest of physical examination is unchanged. I would recommend that we leave him on subcu heparin and we will see him as needed from a cardiac standpoint. MMODL / IJN: [id number] /
[2018-10-02] MEDS: CHLORHEXIDINE GLUCONATE 15 ML CUP MUCOUS MEM SCH ×2 (09:00→20:05)
[2018-10-02] MEDS: SODIUM CHLORIDE 0.9% 1,000 ML IV SCH ×3 (09:00→23:57)
[2018-10-02] MEDS: HEPARIN SODIUM,PORCINE 5,000 UNIT/ML 1 ML VIAL SQ SCH ×2 (09:00→20:05)
[2018-10-02] MEDS: PANTOPRAZOLE 40 MG/10 ML VIAL IVP SCH (09:00)
[2018-10-02] MEDS: POTASSIUM CHLORIDE 10 MEQ in WATER FOR INJECTION 1 100ML.BAG IVPB SCH ×2 (09:01→11:10)
[2018-10-02] MEDS: DILTIAZEM 50 MG in SODIUM CHLORIDE 0.9% 40 ML IV SCH ×2 (09:02→19:53)
[2018-10-02] MEDS ORDERED: FUROSEMIDE 10 MG/ML 4 ML VIAL IV STA (09:35)
[2018-10-02] MEDS: HYDROmorphone 1 MG/ML 1 ML SYRINGE IVP PRN (09:45)
[2018-10-02 12:16] LABS: Glucose,Whole Blood 141 mg/dL (75-99)
--- NOTE | 2018-10-02 13:34 | P.PN ---
Progress Note - Text Progress Note Date: 10/02/18 The patient was seen and examined at bedside. Today, the patient is extremely distended, more so than previous few days. Creatinine has increased along with drop in urine output. Overall, the patient is not on pressors, however his systolic blood pressure and maps are decreasing today. Bladder pressures were done by the nursing staff in the ICU and the bladder pressures have been above 25. There is a concern that the patient is developing abdominal compartment syndrome. I had a very long discussion with the patient's daughter about prognosis and goals of care. The daughter does state her understanding that with her father's multiple comorbidities and current progress since the finding of ischemic bowel, that his prognosis is very poor. The daughter, however, does believe that a surgical procedure to relieve the abdominal compartment syndrome would be in her father's best interest. The daughter was explained the risk of during the surgical procedure and risk of in the postoperative period. The patient's daughter states that she understands this, but would like the procedure completed. We plan for laparotomy and Abthera wound VAC placement.
[2018-10-02] MEDS ORDERED: VECURONIUM 10 MG VIAL IV ONE (14:01)
[2018-10-02] MEDS ORDERED: LACTATED RINGERS 1,000 ML IV ONE (14:06)
--- NOTE | 2018-10-02 14:15 | P.PN ---
Subjective Progress Note Date: 10/02/18 Principal diagnosis: Status post exploratory laparotomy and ischemic bowel resection. Postoperative day # 5 This is a 68-year-old -[place] male patient who lives in [place] and the patient usually goes to the [facility] and [facility] for usual medical care. He came in to our emergency department because of abdominal pain. He is currently rehabilitating for substance abuse, IV drug abuse and he was in a intermediate house on [facility] where he developed increased abdominal pain initially in the suprapubic area and later on his lower abdomen bilaterally more so on the right and the pain was constant and radiating to his back. He came into the emergency department and he was seen by the ED physician. He was given IV morphine for pain control. White cell count was at 15.9. A computed tomography scan of the abdomen was done that showed dilated urinary bladder in addition to a large right-sided scrotal hernia containing the cecum and the terminal ileum. There was no evidence of any bowel obstruction. No evidence of any thoracic or abdominal aortic aneurysm or dissection. The patient initially lactic acid level was 6.7. He was started on IV fluids. He was found to be in atrial fibrillation with rapid ventricular response and he was placed on a Cardizem drip at 5 mg an hour and the patient was admitted to the hospital. I had a chance to evaluate this patient this afternoon. Upon my arrival the patient was in excruciating pain. He was hurting to the point where he was unable to lay down in bed. He was trying to get himself out of the bed. I noted some bloody urine in his Pickett catheter. Abdomen was quite tense and tender and there was direct and rebound tenderness. The right scrotum was quite swollen. No bowel sounds were appreciated. The concern was an incarcerated indirect hernia, with an acute abdomen. Based on that, I immediate recall general surgery and I asked him to come and evaluate this patient in the emergency department as soon as possible for possible surgical intervention of this indirect inguinal hernia. The ultrasound of the testicle showed a grade 4 right-sided testicular microlithiasis.. The patient has noted some progressive swelling in the right scrotum over the past 3 weeks. According to him this is a new finding. No nausea. No vomiting. No chest pain. On today's evaluation of 09/28/2008 and I'm seeing this patient in follow-up. Note that I saw this patient in the emergency department and the patient had an acute abdomen. He was immediately taken to the operating room. Intraoperatively, the patient was found to have ischemic bowel beginning in the distal ileum and extensively throughout the right colon and most of the transverse colon. The bowel was also noted to be strangulated in the right inguinal canal. During the surgery, the patient was noted to be hypotensive and he was started on pressors. He was placed on Rosendo-Synephrine. He underwent a expected to laparotomy, bowel resection and ileostomy was also created. Following that the patient was brought into the intensive care unit. He was kept intubated and on mechanical ventilator. Overnight, the pressors were discontinued. He was given a total of 4 L of IV fluids and currently is on a maintenance and this patient to a bicarb infusion with a rate of 1 25 mL an hour knowing that the patient has some underlying metabolic acidosis. He remains on a mechanical ventilator. He was quite asynchronous. I switched him to a VC plus molds. His current and a tidal volume of 450 with a rate of 14 and FiO2 of 50% with a PEEP of 5. His morning blood gases showed a pH of 7.32 with a pCO2 of 33 and pO2 of 119. The fluid balance is +3.4 L over the past 12 hours. He is producing urine output. He is sedated with Diprivan is calm and comfortable. NG tube is in place. Surgical wound site is clean. Ileostomy site is viable at this point in time. He is covered with broad-spectrum antibiotics with IV Zosyn. Hemoglobin is at 7.6. There was a slight jump in the creatinine which is up to 1.41 which is expected. On 09/29/2018, patient was evaluated in the ICU today, he is status post exploratory laparotomy and resection of what turned out to be an ischemic bowel. Patient was found to have ischemic bowel beginning in the distal ileum and extensively through the right colon and most of the transverse colon. He had a strangulated right inguinal hernia. During the surgery he was hypotensive requiring pressors and fluids, he was also placed on Rosendo- Synephrine. Presently in the ICU, remains on mechanical ventilation, his ventilator settings are basically the same tidal volume is 450, assist control rate of 14 of 5 and FiO2 is down to 40% today. ABG this morning showed a pO2 of 125 pCO2 of 40 pH of 7.40, he was still on a bicarb drip at 25 mL per hour, and I cut it down to 65 mL per hour. CBC was noted, WBC count is 8.8 hemoglobin is 7.3. Renal functioning is a bit worse, although he has a decent urine output, BUN is 46 creatinine is 1.71. Clearly the patient developed some acute kidney injury. Chest x-ray was reviewed, endotracheal tube seems to be in the proper position. There is evidence of bibasilar infiltrates, right more so than left. Patient remains on broad-spectrum antibiotics. He is presently on Zosyn. The rise in creatinine is expected considering his presentation. Patient is sedated, however I plan to withhold propofol, assess mental status, and possibly consider a weaning trial if possible. Reevaluated today on 09/30/2018, patient remains on mechanical ventilation, ventilator settings are tidal volume of 450 assist-control rate of 20 PEEP of 5 and FiO2 of 40%. Patient remains on Cardizem drip, heparin drip, propofol drip , TPN. Presently the propofol was placed on hold, and I plan to address the patient's mental status, and possibly give him a trial of weaning utilizing a pressure support and CPAP. Chest x-ray did show evidence of congestive changes , central vascular congestion, and small bilateral effusions were noted. Urine output seems to be excellent. There is some right basilar atelectasis, strongly doubt pneumonia. Reevaluated today on 10/01/2018, remains on mechanical ventilation, ventilator settings are assist control rate of 16, tidal volume of 450 FiO2 40% and PEEP of 5. Patient remains on heparin drip, propofol drip, TPN, and Cardizem drip. Remains on antibiotics as ordered by infectious disease. ABG this morning showed a pO2 of 97 pCO2 of 35 pH of 7.48. His PTT is therapeutic. CBC is relatively normal hemoglobin is low at 7.2. BUN remains elevated at 46, creatinine is 1.28, improving compared to the last few days. After my evaluation, propofol was discontinued, and I plan to awaken the patient, and assess if he could tolerate any weaning trials. His abdomen is still distended , and his ileostomy seems to be nonfunctional so far. Being followed by general surgery regarding this issue specifically. Patient was reevaluated today on 10/02/2018, remains on mechanical ventilation, and his ventilator settings are basically the same, assist control rate of 18, tidal volume is 450, 40% FiO2 and PEEP of 5. Inspiratory flows are at 70 L/m. Peak airway pressure is in the low 30s, plateau pressures are 25. His labs are showing worsening anemia hemoglobin is down to 6.8, hence I recommended a unit of packed RBCs. His renal functioning is also showing a decline, urine output is low, creatinine is 1.78 and the bladder pressures were measured around 25. His abdomen is becoming more and more distended, and hard. Rigid. No bowel sounds. No significant output from the ileostomy, noted worsening scrotal swelling, lactic acid is 1.9 today, hence I am concerned about abdominal compartment syndrome, and I'm concerned that the patient is actually getting worse. The surgeon was notified, and he evaluated the patient, he discussed his condition with his daughter, and I believe he is planning to have the patient go back to the OR for expiratory laparotomy, and decompression. CD4 count on this patient is only 65. ABG showed a pO2 of 78 pCO2 of 36 pH of 7.39. Chest x-ray is showing evidence of worsening central vascular congestion , and worsening right pleural effusion right basilar atelectasis and/or infiltrate. Overall the chest x-ray is suggestive of worsening fluid overload. Patient remains on propofol, Cardizem, heparin, not requiring any pressors. Yesterday, I wasn't able to assess mental status of this patient although propofol was placed on hold, and patient became later on agitated, had to be placed back on propofol. Objective - Vital Signs Vital signs: Vital Signs Temp 97.8 F 10/02/18 13:49 Pulse 71 10/02/18 13:49 Resp 25 H 10/02/18 13:49 BP 110/52 10/02/18 13:49 Pulse Ox 96 10/02/18 13:19 Intake & Output 10/01/18 10/02/18 10/02/18 18:59 06:59 18:59 Intake Total 2366.418 2464.000 1410.09 Output Total 595 373 740 Balance 6030.512 1278.000 670.09 Weight 70.4 kg 73.6 kg Intake: IV 1020 2300 1290 KVO 200 80 Mvi, Adult No.4 with Vit 720 720 420 K 10 ml Trace (Conc-1Ml/ Dose) 1 ml In Amino Acid 5%-D15w+Lytes*E* 1,000 ml @ 60 mls/hr IV .[id number] [facility] Rx#:[id number] Piperacillin-Tazobactam 3 100 100 50 .375 gm In Sodium Chloride 0.9% 100 ml @ 25 mls/hr IVPB Q8HR [facility] Rx# :[id number] Potassium Chloride 10 meq 100 In Water For Injection 1 100ml.bag @ 100 mls/hr IVPB Q1H [facility] Rx#: [id number] Sodium Chloride 0.9% 1, 900 720 000 ml @ 120 mls/hr IV . Q8H20M [facility] Rx#:[id number] Sodium Chloride 0.9% 500 500 ml 500 ml @ 999 mls/hr IV .Q31M [facility] Rx#:[id number] Intake, IV Titration 1346.418 164.000 120.09 Amount Diltiazem 50 mg In Sodium 44.25 64 Chloride 0.9% 40 ml @ 5 MG/HR 5 mls/hr IV .Q10H [facility] Rx#:[id number] Mvi, Adult No.4 with Vit 1011 K 10 ml Trace (Conc-1Ml/ Dose) 1 ml In Amino Acid 5%-D15w+Lytes*E* 1,000 ml @ 60 mls/hr IV .[id number] [facility] Rx#:[id number] Propofol 1,000 mg In 291.168 100.000 120.09 Empty Bag 1 bag @ Titrate IV .Q0M [facility] Rx#: [id number] Blood Product 0 Rc Cpda-1 Unit 0 [id number] Output: Gastric Drainage 200 Urine 545 373 540 Emesis 50 Other: Voiding Method Indwelling Catheter Indwelling Catheter Indwelling Catheter ABP, PAP, CO, CI - Last Documented Arterial Blood Pressure 104/46 - Exam Physical Exam: Revealed a 68-year-old black male on mechanical ventilation, sedated, in no distress. Endotracheal tube and orogastric tube are noted to be intact. Head: Atraumatic, normocephalic, HEENT: PERRLA, EOMI, moist mucous membranes. [Neck is supple.] [No neck masses. ] [No thyromegaly.] [No JVD.] Chest: [Crackles and rhonchi bilaterally especially at the bases, endotracheal tube is intact..] Cardiac Exam: [Normal S1 and S2, no S3 gallop, no murmur.] Abdomen: [Surgical wound is clean, ileostomy bag was noted, seems to be relatively empty, ileostomy seems dark, abdomen is noted to be more distended today, rigid, no bowel sounds. Extremities: [No clubbing, trace of bipedal edema, no cyanosis.] Neurological Exam: Cannot be assessed, patient is sedated, on propofol. He became quite agitated yesterday off propofol. No plans to help propofol today because the patient is going back to surgery. Psychiatric: Could not be assessed patient remains sedated on propofol. Skin: Surgical site seems to be clean and dry. - Labs CBC & Chem 7: 10/02/18 04:15 10/02/18 04:15 Labs: Abnormal Lab Results - Last 24 Hours (Table) 10/01/18 10/01/18 10/02/18 Range/Units 17:59 23:49 04:15 WBC 15.0 H (3.8-10.6) k/uL RBC 2.36 L (4.30-5.90) m/uL Hgb 6.8 L* (13.0-17.5) gm/dL Hct 21.7 L (39.0-53.0) % RDW 18.7 H (11.5-15.5) % Plt Count 121 L (150-450) k/uL Neutrophils # (Manual) 13.00 H (1.3-7.7) k/uL Lymphocytes # (Manual) 0.30 L (1.0-4.8) k/uL Metamyelocytes # (Man) 0.45 H (0) k/uL Myelocytes # (Manual) 0.15 H (0) k/uL Nucleated RBCs 3 H (0-0) /100 WBC APTT (22.0-30.0) sec ABG pO2 (83-108) mmHg ABG Lactic Acid (0.5-1.6) mmol/L Chloride (98-107) mmol/L BUN (9-20) mg/dL Creatinine (0.66-1.25) mg/dL Glucose (74-99) mg/dL POC Glucose (mg/dL) 152 H 154 H (75-99) mg/dL Calcium (8.4-10.2) mg/dL Phosphorus (2.5-4.5) mg/dL Magnesium (1.6-2.3) mg/dL Crossmatch 10/02/18 10/02/18 10/02/18 Range/Units 04:15 04:15 05:05 WBC (3.8-10.6) k/uL RBC (4.30-5.90) m/uL Hgb (13.0-17.5) gm/dL Hct (39.0-53.0) % RDW (11.5-15.5) % Plt Count (150-450) k/uL Neutrophils # (Manual) (1.3-7.7) k/uL Lymphocytes # (Manual) (1.0-4.8) k/uL Metamyelocytes # (Man) (0) k/uL Myelocytes # (Manual) (0) k/uL Nucleated RBCs (0-0) /100 WBC APTT 45.1 H (22.0-30.0) sec ABG pO2 (83-108) mmHg ABG Lactic Acid (0.5-1.6) mmol/L Chloride 111 H (98-107) mmol/L BUN 61 H (9-20) mg/dL Creatinine 1.78 H (0.66-1.25) mg/dL Glucose 125 H (74-99) mg/dL POC Glucose (mg/dL) 125 H (75-99) mg/dL Calcium 7.5 L (8.4-10.2) mg/dL Phosphorus 5.0 H (2.5-4.5) mg/dL Magnesium 2.8 H (1.6-2.3) mg/dL Crossmatch 10/02/18 10/02/18 10/02/18 Range/Units 07:49 09:55 09:55 WBC (3.8-10.6) k/uL RBC (4.30-5.90) m/uL Hgb (13.0-17.5) gm/dL Hct (39.0-53.0) % RDW (11.5-15.5) % Plt Count (150-450) k/uL Neutrophils # (Manual) (1.3-7.7) k/uL Lymphocytes # (Manual) (1.0-4.8) k/uL Metamyelocytes # (Man) (0) k/uL Myelocytes # (Manual) (0) k/uL Nucleated RBCs (0-0) /100 WBC APTT (22.0-30.0) sec ABG pO2 78 L (83-108) mmHg ABG Lactic Acid 1.9 H (0.5-1.6) mmol/L Chloride (98-107) mmol/L BUN (9-20) mg/dL Creatinine (0.66-1.25) mg/dL Glucose (74-99) mg/dL POC Glucose (mg/dL) (75-99) mg/dL Calcium (8.4-10.2) mg/dL Phosphorus (2.5-4.5) mg/dL Magnesium (1.6-2.3) mg/dL Crossmatch See Detail 10/02/18 Range/Units 12:14 WBC (3.8-10.6) k/uL RBC (4.30-5.90) m/uL Hgb (13.0-17.5) gm/dL Hct (39.0-53.0) % RDW (11.5-15.5) % Plt Count (150-450) k/uL Neutrophils # (Manual) (1.3-7.7) k/uL Lymphocytes # (Manual) (1.0-4.8) k/uL Metamyelocytes # (Man) (0) k/uL Myelocytes # (Manual) (0) k/uL Nucleated RBCs (0-0) /100 WBC APTT (22.0-30.0) sec ABG pO2 (83-108) mmHg ABG Lactic Acid (0.5-1.6) mmol/L Chloride (98-107) mmol/L BUN (9-20) mg/dL Creatinine (0.66-1.25) mg/dL Glucose (74-99) mg/dL POC Glucose (mg/dL) 141 H (75-99) mg/dL Calcium (8.4-10.2) mg/dL Phosphorus (2.5-4.5) mg/dL Magnesium (1.6-2.3) mg/dL Crossmatch Assessment and Plan Assessment: Impression: 1 status post exploratory laparotomy, and resection of ischemic bowel secondary to strangulated right inguinal hernia and chronic atrial fibrillation. Patient is status post ileostomy postoperative day #5 2 postoperative respiratory failure, expected, considering the extensiveness of the ischemic bowel and considering the presentation. Patient had profound metabolic acidosis resolved, sodium bicarb was discontinued. 3 acute kidney injury secondary to hypotension secondary to abdominal sepsis. Possible septic shock on presentation requiring pressors and fluid boluses in the operating room. 4 suspect early abdominal compartment syndrome, surgeon was made aware, patient may have to undergo exploratory laparotomy and decompression. 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 7 chronic atrial fibrillation presently on Cardizem drip, and he is on anticoagulation therapy 8 LV dysfunction and previous AICD placement 9 history of IV drug abuse undergoing rehabilitation. 10 lactic acidosis secondary to bowel ischemia and compartment syndrome, possible abdominal sepsis. Recommendation: Reviewed and discussed the findings of the patient with the surgeon, he evaluated the patient, and he felt that the patient should be taken back to the operating room for reexploration. Apparently he discussed his condition with his daughter, and she is agreeable to proceed. Patient remains critically ill, and his prognosis is extremely poor. I will reevaluate the patient again today after coming back from the OR. Critical care time is 40 minutes. Patient will be given 1 unit of packed RBCs for low hemoglobin. We' ll continue the same ventilator settings. We will address his renal status may have to consider nephrology consultation. Time with Patient: Greater than 30
--- NOTE | 2018-10-02 16:48 | P.OP ---
Date of Procedure: 10/02/18 Preoperative Diagnosis: Concern for abdominal compartment syndrome Postoperative Diagnosis: Ischemic small bowel Procedure(s) Performed: Exploratory laparotomy Anesthesia: LAURA Surgeon: Aiden Cline Pathology: none sent Condition: critical Disposition: ICU Indications for Procedure: 68-year-old male postoperative day #5 from exploratory laparotomy and ischemic bowel resection. He has been stable in the ICU for the last 4 postoperative days. He was not requiring any pressor therapy. He was noted to become severely distended today with an elevation of creatinine and decrease in urine output. His leukocytosis also elevated to 15. There was concern for abdominal compartment syndrome and for this reason, the patient is being taken to the operating room for decompression. I discussed the case in depth with the patient 's daughter prior to the operation. The patient's daughter does understand the poor prognosis of her father, however would like surgical intervention at this time. She does understand that the patient could have a life-threatening event in the operating room. The patient's daughter did provide consent for the operation. Operative Findings: There were several patches of ischemia noted throughout the small bowel. This did presented self from the ligament of Treitz towards the distal ileum. There were multiple areas that were noted to be gangrenous and green and very foul- smelling. Due to the extent of the ischemia and ischemic changes, it appears that the patient does have an ischemic event involving the SMA. Due to the extent of the ischemia and the entire small bowel having concern for viability, there is no plan for any additional surgical resection. The patient is no longer a candidate for resection of the bowel due to this having no viability with life. Postoperatively, I did discuss the case with the assistant professor of geography and the patient's daughter. The patient's daughter is understanding and the plan at this point is comfort care measures. Description of Procedure: The patient was brought into the operating suite and placed in supine position on the operating table. The patient was previously sedated and has had an endotracheal tube in place for 5 days. The previous hever were removed. The patient was prepped and draped in regular sterile fashion. The incision was reentered and immediate expulsion of turbid fluid was noted. This was very foul- smelling. The bowel was noted to be distended and ischemic. This extended from the ligament of Treitz towards the distal ileum. There were patches of necrotic bowel, gangrenous bowel and dark and dusky bowel. There did not appear to be a viable or survivable piece of small bowel. At this point, there was concern for an embolic event or an ischemic event involving the SMA due to the entire small bowel involvement. Any resection at this point would not be viable with life and it was decided to close the abdomen and discuss the case with the assistant professor of geography and the daughter. At this point the prognosis is poor, as there is no surgical intervention that can be performed to extend this patient's life. The abdomen was closed with a running loop PDS suture. Skin hever were placed. The patient was then transferred back to ICU.
[2018-10-02 18:15] LABS: Glucose,Whole Blood 137 mg/dL (75-99)
[2018-10-02] MEDS: MVI, ADULT NO.4 WITH VIT K 10 ML, TRACE (CONC-1ML/DOSE) 1 ML, SODIUM ACETATE 30 MEQ, CA... IV SCH ×12 (18:20→19:52)
[2018-10-02] MEDS: ANIDULAFUNGIN 100 MG in SODIUM CHLORIDE 0.9% 100 ML IVPB SCH (20:04)
[2018-10-02 20:39] VITALS: BP 89/57
[2018-10-02 23:33] LABS: Glucose,Whole Blood 125 mg/dL (75-99)
[2018-10-03] MEDS: HYDROmorphone 1 MG/ML 1 ML SYRINGE IVP PRN ×3 (00:30→15:37)
[2018-10-03] MEDS: PROPOFOL 1,000 MG in EMPTY BAG 1 BAG IV SCH ×4 (03:56→17:49)
[2018-10-03 04:43] LABS: Anisocytosis Slight; HCT 21.4 % (39.0-53.0); HGB 7.3 gm/dL (13.0-17.5); Hypochromasia Slight; MCH 29.7 pg (25.0-35.0); MCHC 34.3 g/dL (31.0-37.0); Mean Platelet Volume 11.6; Platelet Count 110 k/uL (150-450); Poikilocytosis Slight; RBC 2.47 m/uL (4.30-5.90); RDW 18.3 % (11.5-15.5); WBC 22.3 k/uL (3.8-10.6)
[2018-10-03 04:55] LABS: Magnesium 2.1 mg/dL (1.6-2.3); Phosphorus 4.6 mg/dL (2.5-4.5); Potassium 3.3 mmol/L (3.5-5.1)
[2018-10-03] MEDS: POTASSIUM CHLORIDE 20 MEQ in WATER FOR INJECTION 1 100ML.BAG IVPB SCH ×4 (05:22→16:21)
[2018-10-03 05:38] LABS: MCV 86.8 fL (80.0-100.0)
--- NOTE | 2018-10-03 05:56 | P.PN ---
Subjective This is a pleasant 68 years old male with past medical history of hypertension and no much home medication presents because of abdominal pain In the emergency room he was afebrile, tachycardic with heart rate range between 110-144. Tachypneic with heart rate 25 blood pressure 137/88. Labs reviewed showing WBC 13.9 K, hemoglobin 9.1, platelets 246. INR 1.0. Sodium 141. Potassium 3.2. High lactic acid 6.7, coming down to 3.1, with elevated AST at 72. With normal ALT. Troponin is elevated at 0.05 and 0.08. Amylase is high but lipase within normal at 158. Urinalysis showing moderate blood. Chest x-ray showed cardiomegaly with no active cardiopulmonary disease. The patient was shown mild changes of congestive CHF. CT of the abdomen and pelvis showing right-sided inguinal and scrotal hernia contents the cecum and terminal ileum. But don't us obstruction. However in the abdominal examination patient has significant abdominal tenderness and scrotal tenderness with his swelling. This was discussed with the surgical call Dr. Cline and the plan was to take him to the surgery for his acute abdomen and after that may be to the intensive care unit. I spoke with the patient and he able to do the surgery also I spoke with the patient daughter upon his request Mrs. Pederson at [phone]. And updated her with her father situation and all her rashes were answered to her satisfaction. 09/28/2018 Patient is status post exploratory laparotomy with action and ileostomy mostly secondary to incarcerated hernia. Is currently in the ICU intubated and sedated. With hematuria in the Pickett catheter. ALLERGY consultation is appreciated most likely this is secondary to Pickett catheter area surgery R following the patient as well as critical care unit. Cardiology also on the case. Patient remains on sodium bicarb, Protonix, IV antibiotics with Zosyn. His W Blas 5.6K. Hemoglobin 7.6. Sodium 140. Creatinine 1.4. I called his daughter Mrs. Pederson at [phone] and left a message to call me back. 09/29/2018 Patient is status post exploratory laparotomy with action and ileostomy mostly secondary to incarcerated hernia.possible some ischemic colitis . cardiology team recommended anticoagulation once he is more stable. Is currently in the ICU intubated and sedated. With hematuria in the Pickett catheter. urology consultation is appreciated most likely his hematuria is secondary to Pickett catheter area surgery R following the patient as well as critical care unit. Cardiology also on the case.pt was evaluated by ID team today Patient remains on sodium bicarb, Protonix, IV antibiotics with Zosyn. His WBC 8.8 K. Hemoglobin 7.3. Sodium 140. Creatinine 1.7. I called his daughter Mrs. Pederson at [phone] and she HAS called back and she was updated about her father condition as per staff. ID team evaluation is appreciated for possible treatment of HIV status. they agree with antibiotic therapy of zosyn and added anti-fungal therapy with Eraxis. 09/30/2018 pt is in ICU sedated and intubated . pt is been followed up by the critical care team . his stomy bag is still empty, abd is slightly distended. cardiology team recommended anticoagulation which is ok as per surgery team. he was started on heparin drip. With hematuria in the Pickett catheter is improving. urology consultation is appreciated most likely his hematuria is secondary to Pickett catheter area surgery R following the patient as well as critical care unit. Cardiology also on the case.pt was evaluated by ID team today His WBC 9.8 K. Hemoglobin 7.3 stable. Sodium 140. Creatinine 1.3 which keeps improving. ID team evaluation is appreciated for possible treatment of HIV status. they agree with antibiotic therapy of zosyn and added anti-fungal therapy with Eraxis. 10/01/2018 pt was seen and examined in the ICU, he still intubated and sedated , sedation holiday was tried today by the pulmonary/critical care team. pt has a little abd distension , abdominal x-ray : less gaseous distension , possible improving ileus, colostomy bag having some dark brown secretion, no enteral feeding , NG tube is in place and was flushed today as pt vomited once last night , TPN nutrition was started. surgical team is following the pt 10/02/2018 pt is in the ICU intubated , he had more abdominal distension today and he was taken to the operating room , large part of the bowel was non viable, and plan was to proceed with comfort care. family are aware of the plan. wbc 15 K, Hb 6.8 , and platelet 121,creatinie 1.7 , sugar 120s-140s, prognosis remains very poor. Objective - Vital Signs Vital signs: Vital Signs Temp 97.8 F 10/02/18 13:49 Pulse 69 10/02/18 14:00 Resp 24 10/02/18 14:00 BP 89/57 10/02/18 14:00 Pulse Ox 94 L 10/02/18 14:00 Intake & Output 10/01/18 10/02/18 10/02/18 18:59 06:59 18:59 Intake Total 2366.418 2464.000 1890.09 Output Total 082 998 4615 Balance 0817.319 4288.000 380.09 Weight 70.4 kg 73.6 kg Intake: IV 1020 2300 1770 KVO 200 80 Mvi, Adult No.4 with Vit 720 720 480 K 10 ml Trace (Conc-1Ml/ Dose) 1 ml In Amino Acid 5%-D15w+Lytes*E* 1,000 ml @ 60 mls/hr IV .[id number] [facility] Rx#:[id number] Piperacillin-Tazobactam 3 100 100 50 .375 gm In Sodium Chloride 0.9% 100 ml @ 25 mls/hr IVPB Q8HR [facility] Rx# :[id number] Potassium Chloride 10 meq 100 In Water For Injection 1 100ml.bag @ 100 mls/hr IVPB Q1H [facility] Rx#: [id number] Sodium Chloride 0.9% 1, 900 840 000 ml @ 120 mls/hr IV . Q8H20M [facility] Rx#:[id number] Sodium Chloride 0.9% 500 500 ml 500 ml @ 999 mls/hr IV .Q31M [facility] Rx#:[id number] Intake, IV Titration 1346.418 164.000 120.09 Amount Diltiazem 50 mg In Sodium 44.25 64 Chloride 0.9% 40 ml @ 5 MG/HR 5 mls/hr IV .Q10H [facility] Rx#:[id number] Mvi, Adult No.4 with Vit 1011 K 10 ml Trace (Conc-1Ml/ Dose) 1 ml In Amino Acid 5%-D15w+Lytes*E* 1,000 ml @ 60 mls/hr IV .[id number] [facility] Rx#:[id number] Propofol 1,000 mg In 291.168 100.000 120.09 Empty Bag 1 bag @ Titrate IV .Q0M [facility] Rx#: [id number] Blood Product 0 Rc Cpda-1 Unit 0 [id number] Output: Gastric Drainage 200 Urine 336 164 5062 Emesis 50 Estimated Blood Loss 20 Other: Voiding Method Indwelling Catheter Indwelling Catheter Indwelling Catheter ABP, PAP, CO, CI - Last Documented Arterial Blood Pressure 115/50 - Exam GENERAL: The patient is intubated and sedated, not in any acute distress. Well developed, well nourished. HEENT: Pupils are round and equally reacting to light. EOMI. No scleral icterus. No conjunctival pallor. Normocephalic, atraumatic. No pharyngeal erythema. No thyromegaly. CARDIOVASCULAR: S1 and S2 present. No murmurs, rubs, or gallops. PULMONARY: Chest is clear to auscultation, no wheezing or crackles. -ABDOMEN: Soft, incision is closed with no surrounding cellulitis or discharge.. No palpable organomegaly. Pickett catheter in place MUSCULOSKELETAL: No joint swelling or deformity. EXTREMITIES: No cyanosis, clubbing, or pedal edema. NEUROLOGICAL: Gross neurological examination did not reveal any focal deficits. SKIN: No rashes - Labs CBC & Chem 7: 10/03/18 04:10 10/03/18 04:10 Labs: Abnormal Lab Results - Last 24 Hours (Table) 10/01/18 10/01/18 10/02/18 Range/Units 17:59 23:49 04:15 WBC 15.0 H (3.8-10.6) k/uL RBC 2.36 L (4.30-5.90) m/uL Hgb 6.8 L* (13.0-17.5) gm/dL Hct 21.7 L (39.0-53.0) % RDW 18.7 H (11.5-15.5) % Plt Count 121 L (150-450) k/uL Neutrophils # (Manual) 13.00 H (1.3-7.7) k/uL Lymphocytes # (Manual) 0.30 L (1.0-4.8) k/uL Metamyelocytes # (Man) 0.45 H (0) k/uL Myelocytes # (Manual) 0.15 H (0) k/uL Nucleated RBCs 3 H (0-0) /100 WBC APTT (22.0-30.0) sec ABG pO2 (83-108) mmHg ABG Lactic Acid (0.5-1.6) mmol/L Chloride (98-107) mmol/L BUN (9-20) mg/dL Creatinine (0.66-1.25) mg/dL Glucose (74-99) mg/dL POC Glucose (mg/dL) 152 H 154 H (75-99) mg/dL Calcium (8.4-10.2) mg/dL Phosphorus (2.5-4.5) mg/dL Magnesium (1.6-2.3) mg/dL Crossmatch 10/02/18 10/02/18 10/02/18 Range/Units 04:15 04:15 05:05 WBC (3.8-10.6) k/uL RBC (4.30-5.90) m/uL Hgb (13.0-17.5) gm/dL Hct (39.0-53.0) % RDW (11.5-15.5) % Plt Count (150-450) k/uL Neutrophils # (Manual) (1.3-7.7) k/uL Lymphocytes # (Manual) (1.0-4.8) k/uL Metamyelocytes # (Man) (0) k/uL Myelocytes # (Manual) (0) k/uL Nucleated RBCs (0-0) /100 WBC APTT 45.1 H (22.0-30.0) sec ABG pO2 (83-108) mmHg ABG Lactic Acid (0.5-1.6) mmol/L Chloride 111 H (98-107) mmol/L BUN 61 H (9-20) mg/dL Creatinine 1.78 H (0.66-1.25) mg/dL Glucose 125 H (74-99) mg/dL POC Glucose (mg/dL) 125 H (75-99) mg/dL Calcium 7.5 L (8.4-10.2) mg/dL Phosphorus 5.0 H (2.5-4.5) mg/dL Magnesium 2.8 H (1.6-2.3) mg/dL Crossmatch 10/02/18 10/02/18 10/02/18 Range/Units 07:49 09:55 09:55 WBC (3.8-10.6) k/uL RBC (4.30-5.90) m/uL Hgb (13.0-17.5) gm/dL Hct (39.0-53.0) % RDW (11.5-15.5) % Plt Count (150-450) k/uL Neutrophils # (Manual) (1.3-7.7) k/uL Lymphocytes # (Manual) (1.0-4.8) k/uL Metamyelocytes # (Man) (0) k/uL Myelocytes # (Manual) (0) k/uL Nucleated RBCs (0-0) /100 WBC APTT (22.0-30.0) sec ABG pO2 78 L (83-108) mmHg ABG Lactic Acid 1.9 H (0.5-1.6) mmol/L Chloride (98-107) mmol/L BUN (9-20) mg/dL Creatinine (0.66-1.25) mg/dL Glucose (74-99) mg/dL POC Glucose (mg/dL) (75-99) mg/dL Calcium (8.4-10.2) mg/dL Phosphorus (2.5-4.5) mg/dL Magnesium (1.6-2.3) mg/dL Crossmatch See Detail 10/02/18 Range/Units 12:14 WBC (3.8-10.6) k/uL RBC (4.30-5.90) m/uL Hgb (13.0-17.5) gm/dL Hct (39.0-53.0) % RDW (11.5-15.5) % Plt Count (150-450) k/uL Neutrophils # (Manual) (1.3-7.7) k/uL Lymphocytes # (Manual) (1.0-4.8) k/uL Metamyelocytes # (Man) (0) k/uL Myelocytes # (Manual) (0) k/uL Nucleated RBCs (0-0) /100 WBC APTT (22.0-30.0) sec ABG pO2 (83-108) mmHg ABG Lactic Acid (0.5-1.6) mmol/L Chloride (98-107) mmol/L BUN (9-20) mg/dL Creatinine (0.66-1.25) mg/dL Glucose (74-99) mg/dL POC Glucose (mg/dL) 141 H (75-99) mg/dL Calcium (8.4-10.2) mg/dL Phosphorus (2.5-4.5) mg/dL Magnesium (1.6-2.3) mg/dL Crossmatch Assessment and Plan Assessment: Incarcerated right inguinal hernia, status post exploratory laparotomy, bowel resection and ileostomy acute hypoxic resp failure , expected . intubated on vent Anemia Elevated Lactic acid, resolved Elevated troponin, cardiology team recommended anticoagulation Hematuria, improving acute kid injury, improving peritonitis and abd infection , expected . on iv antibiotic chrnoic a fib cardiomyopathy h/o previous iv drug abuse Plan: This is a pleasant 68 years old male who presents with acute abdomen secondary to incarcerated hernia. Patient status surgical resection and ileostomy. Several consults are following the patient including surgery, neurology, critical care/pulmonary, cardiology. Continue with antibiotics. Continue with IV fluids. NG tube. Nothing by mouth.Labs and medication were reviewed. After surgery patient might be going to the intensive care unit. Continue same treatment. Continue with symptomatic treatment. Resume home medication. Monitor lytes and vitals. DVT and GI prophylaxis. Further recommendations of the clinical course of the patient Prognosis is guarded
[2018-10-03 06:12] LABS: Glucose,Whole Blood 146 mg/dL (75-99)
[2018-10-03] MEDS: INSULIN ASPART 100 UNIT/ML 1 ML 10 ML VIAL SQ SCH ×4 (06:14→17:59)
[2018-10-03 07:10] LABS: ABG Base Excess -6.2 mmol/L; ABG HCO3 19 mmol/L (21-25); ABG Oxygen Saturation 91.9 % (94-97); ABG PCO2 34 mmHg (35-45); ABG PH 7.37 (7.35-7.45); ABG PO2 64 mmHg (83-108); ABG TCO2 20 mmol/L (19-24)
[2018-10-03] MEDS: HEPARIN SODIUM,PORCINE 5,000 UNIT/ML 1 ML VIAL SQ SCH ×2 (07:37→07:38)
[2018-10-03] MEDS: CHLORHEXIDINE GLUCONATE 15 ML CUP MUCOUS MEM SCH ×2 (07:37→21:05)
[2018-10-03] MEDS: PIPERACILLIN-TAZOBACTAM 3.375 GM in SODIUM CHLORIDE 0.9% 100 ML IVPB SCH ×3 (07:37→23:03)
[2018-10-03] MEDS ORDERED: CALCIUM GLUCONATE 1,000 MG in SODIUM CHLORIDE 0.9% 100 ML IVPB ONE (08:30)
[2018-10-03] MEDS: DILTIAZEM 50 MG in SODIUM CHLORIDE 0.9% 40 ML IV SCH ×2 (08:57→17:50)
[2018-10-03] MEDS: SODIUM CHLORIDE 0.9% 1,000 ML IV SCH ×2 (08:57→17:50)
[2018-10-03] MEDS: PANTOPRAZOLE 40 MG/10 ML VIAL IVP SCH (08:59)
[2018-10-03] MEDS ORDERED: FUROSEMIDE 10 MG/ML 2 ML VIAL IV ONE (09:43)
--- NOTE | 2018-10-03 09:51 | XR ---
EXAMINATION TYPE: XR chest 1V portable DATE OF EXAM: 10/03/2018 COMPARISON: 10/02/2018 INDICATION: Tube placement TECHNIQUE: Single frontal view of the chest is obtained. FINDINGS: The heart size is enlarged. The pulmonary vasculature is normal. Bibasilar infiltrates are present. Small bilateral pleural effusions are opacity at the lung bases ma y be increasing. An endotracheal tube is present with the tip above the danna. Nasogastric tube transverses the thora x the tip within the proximal left upper quadrant of the abdomen. This could be advanced slightly. Ri ght central venous catheter is present with the tip in the proximal cava region at the right apex. IMPRESSION: 1. Lines and catheters discussed above. The nasogastric tube could be advanced slightly more typical for placement. 2. Cardiomegaly. 3. Small bilateral pleural effusions with bilateral adjacent infiltrates such as atelectasis. Continu ed follow-up is recommended.
[2018-10-03 10:33] VITALS: BMI 31.3
[2018-10-03 12:20] LABS: Glucose,Whole Blood 149 mg/dL (75-99)
--- NOTE | 2018-10-03 12:47 | P.PN ---
Subjective Progress Note Date: 10/03/18 Principal diagnosis: Status post exploratory laparotomy and ischemic bowel resection. Postoperative day #6 repeat expiratory laparotomy postoperative day #1 This is a 68-year-old -[place] male patient who lives in [place] and the patient usually goes to the [facility] and [facility] for usual medical care. He came in to our emergency department because of abdominal pain. He is currently rehabilitating for substance abuse, IV drug abuse and he was in a senior care house on [facility] where he developed increased abdominal pain initially in the suprapubic area and later on his lower abdomen bilaterally more so on the right and the pain was constant and radiating to his back. He came into the emergency department and he was seen by the ED physician. He was given IV morphine for pain control. White cell count was at 15.9. A computed tomography scan of the abdomen was done that showed dilated urinary bladder in addition to a large right-sided scrotal hernia containing the cecum and the terminal ileum. There was no evidence of any bowel obstruction. No evidence of any thoracic or abdominal aortic aneurysm or dissection. The patient initially lactic acid level was 6.7. He was started on IV fluids. He was found to be in atrial fibrillation with rapid ventricular response and he was placed on a Cardizem drip at 5 mg an hour and the patient was admitted to the hospital. I had a chance to evaluate this patient this afternoon. Upon my arrival the patient was in excruciating pain. He was hurting to the point where he was unable to lay down in bed. He was trying to get himself out of the bed. I noted some bloody urine in his Pickett catheter. Abdomen was quite tense and tender and there was direct and rebound tenderness. The right scrotum was quite swollen. No bowel sounds were appreciated. The concern was an incarcerated indirect hernia, with an acute abdomen. Based on that, I immediate recall general surgery and I asked him to come and evaluate this patient in the emergency department as soon as possible for possible surgical intervention of this indirect inguinal hernia. The ultrasound of the testicle showed a grade 4 right-sided testicular microlithiasis.. The patient has noted some progressive swelling in the right scrotum over the past 3 weeks. According to him this is a new finding. No nausea. No vomiting. No chest pain. On today's evaluation of 09/28/2008 and I'm seeing this patient in follow-up. Note that I saw this patient in the emergency department and the patient had an acute abdomen. He was immediately taken to the operating room. Intraoperatively, the patient was found to have ischemic bowel beginning in the distal ileum and extensively throughout the right colon and most of the transverse colon. The bowel was also noted to be strangulated in the right inguinal canal. During the surgery, the patient was noted to be hypotensive and he was started on pressors. He was placed on Rosendo-Synephrine. He underwent a expected to laparotomy, bowel resection and ileostomy was also created. Following that the patient was brought into the intensive care unit. He was kept intubated and on mechanical ventilator. Overnight, the pressors were discontinued. He was given a total of 4 L of IV fluids and currently is on a maintenance and this patient to a bicarb infusion with a rate of 1 25 mL an hour knowing that the patient has some underlying metabolic acidosis. He remains on a mechanical ventilator. He was quite asynchronous. I switched him to a VC plus molds. His current and a tidal volume of 450 with a rate of 14 and FiO2 of 50% with a PEEP of 5. His morning blood gases showed a pH of 7.32 with a pCO2 of 33 and pO2 of 119. The fluid balance is +3.4 L over the past 12 hours. He is producing urine output. He is sedated with Diprivan is calm and comfortable. NG tube is in place. Surgical wound site is clean. Ileostomy site is viable at this point in time. He is covered with broad-spectrum antibiotics with IV Zosyn. Hemoglobin is at 7.6. There was a slight jump in the creatinine which is up to 1.41 which is expected. On 09/29/2018, patient was evaluated in the ICU today, he is status post exploratory laparotomy and resection of what turned out to be an ischemic bowel. Patient was found to have ischemic bowel beginning in the distal ileum and extensively through the right colon and most of the transverse colon. He had a strangulated right inguinal hernia. During the surgery he was hypotensive requiring pressors and fluids, he was also placed on Rosendo- Synephrine. Presently in the ICU, remains on mechanical ventilation, his ventilator settings are basically the same tidal volume is 450, assist control rate of 14 of 5 and FiO2 is down to 40% today. ABG this morning showed a pO2 of 125 pCO2 of 40 pH of 7.40, he was still on a bicarb drip at 25 mL per hour, and I cut it down to 65 mL per hour. CBC was noted, WBC count is 8.8 hemoglobin is 7.3. Renal functioning is a bit worse, although he has a decent urine output, BUN is 46 creatinine is 1.71. Clearly the patient developed some acute kidney injury. Chest x-ray was reviewed, endotracheal tube seems to be in the proper position. There is evidence of bibasilar infiltrates, right more so than left. Patient remains on broad-spectrum antibiotics. He is presently on Zosyn. The rise in creatinine is expected considering his presentation. Patient is sedated, however I plan to withhold propofol, assess mental status, and possibly consider a weaning trial if possible. Reevaluated today on 09/30/2018, patient remains on mechanical ventilation, ventilator settings are tidal volume of 450 assist-control rate of 20 PEEP of 5 and FiO2 of 40%. Patient remains on Cardizem drip, heparin drip, propofol drip , TPN. Presently the propofol was placed on hold, and I plan to address the patient's mental status, and possibly give him a trial of weaning utilizing a pressure support and CPAP. Chest x-ray did show evidence of congestive changes , central vascular congestion, and small bilateral effusions were noted. Urine output seems to be excellent. There is some right basilar atelectasis, strongly doubt pneumonia. Reevaluated today on 10/01/2018, remains on mechanical ventilation, ventilator settings are assist control rate of 16, tidal volume of 450 FiO2 40% and PEEP of 5. Patient remains on heparin drip, propofol drip, TPN, and Cardizem drip. Remains on antibiotics as ordered by infectious disease. ABG this morning showed a pO2 of 97 pCO2 of 35 pH of 7.48. His PTT is therapeutic. CBC is relatively normal hemoglobin is low at 7.2. BUN remains elevated at 46, creatinine is 1.28, improving compared to the last few days. After my evaluation, propofol was discontinued, and I plan to awaken the patient, and assess if he could tolerate any weaning trials. His abdomen is still distended , and his ileostomy seems to be nonfunctional so far. Being followed by general surgery regarding this issue specifically. Patient was reevaluated today on 10/02/2018, remains on mechanical ventilation, and his ventilator settings are basically the same, assist control rate of 18, tidal volume is 450, 40% FiO2 and PEEP of 5. Inspiratory flows are at 70 L/m. Peak airway pressure is in the low 30s, plateau pressures are 25. His labs are showing worsening anemia hemoglobin is down to 6.8, hence I recommended a unit of packed RBCs. His renal functioning is also showing a decline, urine output is low, creatinine is 1.78 and the bladder pressures were measured around 25. His abdomen is becoming more and more distended, and hard. Rigid. No bowel sounds. No significant output from the ileostomy, noted worsening scrotal swelling, lactic acid is 1.9 today, hence I am concerned about abdominal compartment syndrome, and I'm concerned that the patient is actually getting worse. The surgeon was notified, and he evaluated the patient, he discussed his condition with his daughter, and I believe he is planning to have the patient go back to the OR for expiratory laparotomy, and decompression. CD4 count on this patient is only 65. ABG showed a pO2 of 78 pCO2 of 36 pH of 7.39. Chest x-ray is showing evidence of worsening central vascular congestion , and worsening right pleural effusion right basilar atelectasis and/or infiltrate. Overall the chest x-ray is suggestive of worsening fluid overload. Patient remains on propofol, Cardizem, heparin, not requiring any pressors. Yesterday, I wasn't able to assess mental status of this patient although propofol was placed on hold, and patient became later on agitated, had to be placed back on propofol. Patient was reevaluated today on 10/03/2018, he did have expiratory laparotomy yesterday with a concern of compartment syndrome, patient was found to have several patches of ischemia throughout the small bowel. There was also multiple areas of gangrenous and green and very foul-smelling due to the extent of the ischemia and ischemic changes. The surgeon felt there may be an ischemic event involving this appeared mesenteric artery apparently the surgeon updated his daughter on his condition, and agreed to eventually consider comfort care measures. No further intervention was recommended at that time of the surgery. The surgeon felt that this is clearly a medical futility situation. Patient remains today on mechanical ventilation, he is on FiO2 of 50 %, assist control rate of 20 tidal volume of 450 and PEEP of 5. ABG showed a pO2 of 64 pCO2 of 34 pH of 7.37. WBC count is 22.3 hemoglobin is 7.3 potassium is 3.3 BUN is 61 creatinine 1.25. Chest x-ray is suggestive of bilateral pleural effusions with atelectasis, difficult to rule out infiltrates. Patient remains hemodynamically stable not requiring any pressors, he is however on propofol at 75 mcg/kg/m. Objective - Vital Signs Vital signs: Vital Signs Temp 97.7 F 10/03/18 12:00 Pulse 65 10/03/18 12:00 Resp 26 H 10/03/18 12:00 BP 89/57 10/03/18 03:00 Pulse Ox 97 10/03/18 12:00 Intake & Output 10/02/18 10/03/18 10/03/18 18:59 06:59 18:59 Intake Total 3050.00 2180.296 830 Output Total 2285 1095 330 Balance 765.00 1085.296 500 Weight 72.8 kg 72.8 kg Intake: IV 2540 1660 730 Calcium Gluconate 1,000 100 mg In Sodium Chloride 0.9 % 100 ml @ 100 mls/hr IVPB ONCE ONE Rx#: [id number] Mvi, Adult No.4 with Vit 720 120 K 10 ml Trace (Conc-1Ml/ Dose) 1 ml In Amino Acid 5%-D15w+Lytes*E* 1,000 ml @ 60 mls/hr IV .[id number] [facility], 1928–1983 Rx#:[id number] Piperacillin-Tazobactam 3 100 50 .375 gm In Sodium Chloride 0.9% 100 ml @ 25 mls/hr IVPB Q8HR [place] Rx# :[id number] Potassium Chloride 10 meq 100 In Water For Injection 1 100ml.bag @ 100 mls/hr IVPB Q1H [place] Rx#: [id number] Potassium Chloride 20 meq 100 100 In Water For Injection 1 100ml.bag @ 50 mls/hr IVPB Q2H [place] Rx#: [id number] Sodium Chloride 0.9% 1, 1320 1440 480 000 ml @ 120 mls/hr IV . Q8H20M [place] Rx#:[id number] Intake, IV Titration 200.00 520.296 100 Amount Diltiazem 50 mg In Sodium 50 Chloride 0.9% 40 ml @ 5 MG/HR 5 mls/hr IV .Q10H [place] Rx#:[id number] Mvi, Adult No.4 with Vit 92 K 10 ml Trace (Conc-1Ml/ Dose) 1 ml Sodium Acetate 30 meq Calcium Gluconate 1,000 mg Potassium Chloride 30 meq In Amino Acid 5%-D15w 1,000 ml @ 60 mls/hr IV .[id number] [facility] Rx#:[id number] Propofol 1,000 mg In 200.00 378.296 100 Empty Bag 1 bag @ Titrate IV .Q0M [place] Rx#: [id number] Blood Product 310 Rc Cpda-1 Unit 310 [id number] Output: Gastric Drainage 200 300 Urine 2065 795 330 Estimated Blood Loss 20 Other: Voiding Method Indwelling Catheter Indwelling Catheter Indwelling Catheter ABP, PAP, CO, CI - Last Documented Arterial Blood Pressure 108/48 - Exam Physical Exam: Revealed a 68-year-old black male on mechanical ventilation, sedated, in no distress. Endotracheal tube and orogastric tube are noted to be intact. Head: Atraumatic, normocephalic, HEENT: PERRLA, EOMI, moist mucous membranes. [Neck is supple.] [No neck masses. ] [No thyromegaly.] [No JVD.] Chest: [Crackles and rhonchi bilaterally especially at the bases, endotracheal tube is intact..] Cardiac Exam: [Normal S1 and S2, no S3 gallop, no murmur.] Abdomen: [Surgical wound is clean, ileostomy bag was noted, seems to be relatively empty, ileostomy seems dark, abdomen remains distended, rigid, no bowel sounds. Ileostomy is nonfunctional. Extremities: [No clubbing, trace of bipedal edema, no cyanosis.] Neurological Exam: Cannot be assessed, patient is sedated, on propofol. No plans to hold propofol at this point unless we go to comfort care. Psychiatric: Could not be assessed patient remains sedated on propofol. Skin: Surgical site seems to be clean and dry. - Labs CBC & Chem 7: 10/03/18 04:10 10/03/18 04:10 Labs: Abnormal Lab Results - Last 24 Hours (Table) 10/02/18 10/02/18 10/02/18 Range/Units 09:55 18:14 23:31 WBC (3.8-10.6) k/uL RBC (4.30-5.90) m/uL Hgb (13.0-17.5) gm/dL Hct (39.0-53.0) % RDW (11.5-15.5) % Plt Count (150-450) k/uL ABG pCO2 (35-45) mmHg ABG pO2 (83-108) mmHg ABG HCO3 (21-25) mmol/L ABG O2 Saturation (94-97) % Potassium (3.5-5.1) mmol/L Chloride (98-107) mmol/L Carbon Dioxide (22-30) mmol/L BUN (9-20) mg/dL Glucose (74-99) mg/dL POC Glucose (mg/dL) 137 H 125 H (75-99) mg/dL Calcium (8.4-10.2) mg/dL Phosphorus (2.5-4.5) mg/dL Crossmatch See Detail 10/03/18 10/03/18 10/03/18 Range/Units 04:10 04:10 06:11 WBC 22.3 H (3.8-10.6) k/uL RBC 2.47 L (4.30-5.90) m/uL Hgb 7.3 L (13.0-17.5) gm/dL Hct 21.4 L (39.0-53.0) % RDW 18.3 H (11.5-15.5) % Plt Count 110 L (150-450) k/uL ABG pCO2 (35-45) mmHg ABG pO2 (83-108) mmHg ABG HCO3 (21-25) mmol/L ABG O2 Saturation (94-97) % Potassium 3.3 L (3.5-5.1) mmol/L Chloride 111 H (98-107) mmol/L Carbon Dioxide 19 L (22-30) mmol/L BUN 61 H (9-20) mg/dL Glucose 135 H (74-99) mg/dL POC Glucose (mg/dL) 146 H (75-99) mg/dL Calcium 7.0 L (8.4-10.2) mg/dL Phosphorus 4.6 H (2.5-4.5) mg/dL Crossmatch 10/03/18 10/03/18 Range/Units 07:06 12:17 WBC (3.8-10.6) k/uL RBC (4.30-5.90) m/uL Hgb (13.0-17.5) gm/dL Hct (39.0-53.0) % RDW (11.5-15.5) % Plt Count (150-450) k/uL ABG pCO2 34 L (35-45) mmHg ABG pO2 64 L (83-108) mmHg ABG HCO3 19 L (21-25) mmol/L ABG O2 Saturation 91.9 L (94-97) % Potassium (3.5-5.1) mmol/L Chloride (98-107) mmol/L Carbon Dioxide (22-30) mmol/L BUN (9-20) mg/dL Glucose (74-99) mg/dL POC Glucose (mg/dL) 149 H (75-99) mg/dL Calcium (8.4-10.2) mg/dL Phosphorus (2.5-4.5) mg/dL Crossmatch Assessment and Plan Assessment: Impression: 1 status post exploratory laparotomy, and resection of ischemic bowel secondary to strangulated right inguinal hernia and chronic atrial fibrillation. Patient is status post ileostomy postoperative day #6, postoperative repeat expiratory laparotomy day #1 2 postoperative respiratory failure, expected, considering the extensiveness of the ischemic bowel and considering the presentation. Patient had profound metabolic acidosis resolved, sodium bicarb was discontinued. However I expect acidosis will worsen as we are dealing with more ischemic bowel as noted on the last operative report. 3 acute kidney injury secondary to hypotension secondary to abdominal sepsis. Possible septic shock on presentation requiring pressors and fluid boluses in the operating room. 4 suspect early abdominal compartment syndrome, surgeon was made aware, patient may have to undergo exploratory laparotomy and decompression. 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 7 chronic atrial fibrillation presently on Cardizem drip, and he is on anticoagulation therapy 8 LV dysfunction and previous AICD placement 9 history of IV drug abuse undergoing rehabilitation. 10 lactic acidosis secondary to bowel ischemia and compartment syndrome, abdominal sepsis. Recommendation: Based on the surgical findings yesterday, I believe at this point we are dealing with a medical futility condition. We are supposed to be meeting with the daughter and the will has been from her for the last 40 years, and would have to come up with a decision as to when to initiate comfort care measures. In the meantime we'll continue supportive care measures, but at this point if the patient is to code, he will not be resuscitated. And his CODE STATUS presently is DO NOT RESUSCITATE. This is based on the fact that this is a medical futility condition for certain. Critical care time is 35 minutes. Time with Patient: Greater than 30
--- NOTE | 2018-10-03 13:00 | CDI ---
Documentation Clarification Form Date: 10/03/2018 12:37:17 PM From: Leanna Vale RN, CCDS Admit Date: 09/27/2018 8:20:00 AM Patient Name: Gabe Santana Visit Number: [id number] Discharge Date: ATTENTION: The Clinical Documentation Specialists (CDI) and [facility] Coding Staff appreciate your assistance in clarifying documentation. Please respond to the clarification below the line at the bottom and electronically sign. The CDI & [facility] Coding staff will review the response and follow-up if needed. Please note: Queries are made part of the Legal Health Record. If you have any questions, please contact the author of this message via ITS. Dr. Guevara Sheet A diagnosis of anemia lacks specificity to accurately reflect your patients severity of condition and clarification is needed. History/Risk Factors: Chronic Atrial fibrillation, IVDA, HIV, Clinical indicators: ED with complaints of abdominal pain workup found an incarcerated inguinal hernia with abdominal peritonitis. 09/27/18 Prior to arrival to OR the escobedo catheter was noted to have bright red blood. Hemoglobin on admission 9.1, . 12/03/17: 6.8 Hematocrit: on admission 29.3, 10/02/18: 21.7 Treatment: 1 units of PRBCs transfused, monitoring labs CBC In order to capture the severity of condition, please clarify the type of anemia and etiology if known: Acute blood loss anemia Acute on chronic blood loss anemia Chronic blood loss anemia Iron deficiency anemia Anemia of chronic kidney disease Unable to determine Other, please specify (Last Revision: July 2017) unable to determine , no anemia work up done . it could be multifactorial including his illness and its severity , losing some blood during surgery which is expected. JOSEPH
--- NOTE | 2018-10-03 13:11 | P.PN ---
Subjective This is a pleasant 68 years old male with past medical history of hypertension and no much home medication presents because of abdominal pain In the emergency room he was afebrile, tachycardic with heart rate range between 110-144. Tachypneic with heart rate 25 blood pressure 137/88. Labs reviewed showing WBC 13.9 K, hemoglobin 9.1, platelets 246. INR 1.0. Sodium 141. Potassium 3.2. High lactic acid 6.7, coming down to 3.1, with elevated AST at 72. With normal ALT. Troponin is elevated at 0.05 and 0.08. Amylase is high but lipase within normal at 158. Urinalysis showing moderate blood. Chest x-ray showed cardiomegaly with no active cardiopulmonary disease. The patient was shown mild changes of congestive CHF. CT of the abdomen and pelvis showing right-sided inguinal and scrotal hernia contents the cecum and terminal ileum. But don't us obstruction. However in the abdominal examination patient has significant abdominal tenderness and scrotal tenderness with his swelling. This was discussed with the surgical call Dr. Cline and the plan was to take him to the surgery for his acute abdomen and after that may be to the intensive care unit. I spoke with the patient and he able to do the surgery also I spoke with the patient daughter upon his request Mrs. Pederson at [phone]. And updated her with her father situation and all her rashes were answered to her satisfaction. 09/28/2018 Patient is status post exploratory laparotomy with action and ileostomy mostly secondary to incarcerated hernia. Is currently in the ICU intubated and sedated. With hematuria in the Pickett catheter. ALLERGY consultation is appreciated most likely this is secondary to Pickett catheter area surgery R following the patient as well as critical care unit. Cardiology also on the case. Patient remains on sodium bicarb, Protonix, IV antibiotics with Zosyn. His W Blas 5.6K. Hemoglobin 7.6. Sodium 140. Creatinine 1.4. I called his daughter Mrs. Pederson at [phone] and left a message to call me back. 09/29/2018 Patient is status post exploratory laparotomy with action and ileostomy mostly secondary to incarcerated hernia.possible some ischemic colitis . cardiology team recommended anticoagulation once he is more stable. Is currently in the ICU intubated and sedated. With hematuria in the Pickett catheter. urology consultation is appreciated most likely his hematuria is secondary to Pickett catheter area surgery R following the patient as well as critical care unit. Cardiology also on the case.pt was evaluated by ID team today Patient remains on sodium bicarb, Protonix, IV antibiotics with Zosyn. His WBC 8.8 K. Hemoglobin 7.3. Sodium 140. Creatinine 1.7. I called his daughter Mrs. Pederson at [phone] and she HAS called back and she was updated about her father condition as per staff. ID team evaluation is appreciated for possible treatment of HIV status. they agree with antibiotic therapy of zosyn and added anti-fungal therapy with Eraxis. 09/30/2018 pt is in ICU sedated and intubated . pt is been followed up by the critical care team . his stomy bag is still empty, abd is slightly distended. cardiology team recommended anticoagulation which is ok as per surgery team. he was started on heparin drip. With hematuria in the Pickett catheter is improving. urology consultation is appreciated most likely his hematuria is secondary to Pickett catheter area surgery R following the patient as well as critical care unit. Cardiology also on the case.pt was evaluated by ID team today His WBC 9.8 K. Hemoglobin 7.3 stable. Sodium 140. Creatinine 1.3 which keeps improving. ID team evaluation is appreciated for possible treatment of HIV status. they agree with antibiotic therapy of zosyn and added anti-fungal therapy with Eraxis. 10/01/2018 pt was seen and examined in the ICU, he still intubated and sedated , sedation holiday was tried today by the pulmonary/critical care team. pt has a little abd distension , abdominal x-ray : less gaseous distension , possible improving ileus, colostomy bag having some dark brown secretion, no enteral feeding , NG tube is in place and was flushed today as pt vomited once last night , TPN nutrition was started. surgical team is following the pt 10/02/2018 pt is in the ICU intubated , he had more abdominal distension today and he was taken to the operating room , large part of the bowel was non viable, and plan was to proceed with comfort care. family are aware of the plan. wbc 15 K, Hb 6.8 , and platelet 121,creatinie 1.7 , sugar 120s-140s, prognosis remains very poor. 10/03/2018 Patient in the ICU, intubated on on parenteral nutrition. Chest x-ray showing bilateral small pleural effusion with adjacent atelectasis or infiltrate. 1 dose of Lasix was given. His WBC is trending up to 22.3. Creatinine is 1.25, calcium is low at 7.0. And patient got 1 dose of calcium gluconate 1000 mg IV once. Patient on antibiotics Zosyn. Several consultants R following the case including physical care team, surgery team cardiology team , and infectious disease team. Objective - Vital Signs Vital signs: Vital Signs Temp 97.7 F 10/03/18 12:00 Pulse 65 10/03/18 12:00 Resp 26 H 10/03/18 12:00 BP 89/57 10/03/18 03:00 Pulse Ox 97 10/03/18 12:00 Intake & Output 10/02/18 10/03/18 10/03/18 18:59 06:59 18:59 Intake Total 3050.00 2180.296 830 Output Total 2285 1095 330 Balance 765.00 1085.296 500 Weight 72.8 kg 72.8 kg Intake: IV 2540 1660 730 Calcium Gluconate 1,000 100 mg In Sodium Chloride 0.9 % 100 ml @ 100 mls/hr IVPB ONCE ONE Rx#: [id number] Mvi, Adult No.4 with Vit 720 120 K 10 ml Trace (Conc-1Ml/ Dose) 1 ml In Amino Acid 5%-D15w+Lytes*E* 1,000 ml @ 60 mls/hr IV .[id number] [facility] Rx#:[id number] Piperacillin-Tazobactam 3 100 50 .375 gm In Sodium Chloride 0.9% 100 ml @ 25 mls/hr IVPB Q8HR [facility] Rx# :[id number] Potassium Chloride 10 meq 100 In Water For Injection 1 100ml.bag @ 100 mls/hr IVPB Q1H [facility] Rx#: [id number] Potassium Chloride 20 meq 100 100 In Water For Injection 1 100ml.bag @ 50 mls/hr IVPB Q2H [facility] Rx#: [id number] Sodium Chloride 0.9% 1, 1320 1440 480 000 ml @ 120 mls/hr IV . Q8H20M [facility] Rx#:[id number] Intake, IV Titration 200.00 520.296 100 Amount Diltiazem 50 mg In Sodium 50 Chloride 0.9% 40 ml @ 5 MG/HR 5 mls/hr IV .Q10H [place] Rx#:[id number] Mvi, Adult No.4 with Vit 92 K 10 ml Trace (Conc-1Ml/ Dose) 1 ml Sodium Acetate 30 meq Calcium Gluconate 1,000 mg Potassium Chloride 30 meq In Amino Acid 5%-D15w 1,000 ml @ 60 mls/hr IV .[id number] [facility] Rx#:[id number] Propofol 1,000 mg In 200.00 378.296 100 Empty Bag 1 bag @ Titrate IV .Q0M [facility] Rx#: [id number] Blood Product 310 Rc Cpda-1 Unit 310 [id number] Output: Gastric Drainage 200 300 Urine 2065 795 330 Estimated Blood Loss 20 Other: Voiding Method Indwelling Catheter Indwelling Catheter Indwelling Catheter ABP, PAP, CO, CI - Last Documented Arterial Blood Pressure 108/48 - Exam GENERAL: The patient is intubated and sedated, not in any acute distress. Well developed, well nourished. HEENT: Pupils are round and equally reacting to light. EOMI. No scleral icterus. No conjunctival pallor. Normocephalic, atraumatic. No pharyngeal erythema. No thyromegaly. CARDIOVASCULAR: S1 and S2 present. No murmurs, rubs, or gallops. PULMONARY: Chest is clear to auscultation, no wheezing or crackles. -ABDOMEN: Soft, incision is closed with no surrounding cellulitis or discharge.. No palpable organomegaly. Pickett catheter in place MUSCULOSKELETAL: No joint swelling or deformity. EXTREMITIES: No cyanosis, clubbing, or pedal edema. NEUROLOGICAL: Gross neurological examination did not reveal any focal deficits. SKIN: No rashes - Labs CBC & Chem 7: 10/03/18 04:10 10/03/18 12:10 Labs: Abnormal Lab Results - Last 24 Hours (Table) 10/02/18 10/02/18 10/02/18 Range/Units 09:55 18:14 23:31 WBC (3.8-10.6) k/uL RBC (4.30-5.90) m/uL Hgb (13.0-17.5) gm/dL Hct (39.0-53.0) % RDW (11.5-15.5) % Plt Count (150-450) k/uL ABG pCO2 (35-45) mmHg ABG pO2 (83-108) mmHg ABG HCO3 (21-25) mmol/L ABG O2 Saturation (94-97) % Potassium (3.5-5.1) mmol/L Chloride (98-107) mmol/L Carbon Dioxide (22-30) mmol/L BUN (9-20) mg/dL Glucose (74-99) mg/dL POC Glucose (mg/dL) 137 H 125 H (75-99) mg/dL Calcium (8.4-10.2) mg/dL Phosphorus (2.5-4.5) mg/dL Crossmatch See Detail 10/03/18 10/03/18 10/03/18 Range/Units 04:10 04:10 06:11 WBC 22.3 H (3.8-10.6) k/uL RBC 2.47 L (4.30-5.90) m/uL Hgb 7.3 L (13.0-17.5) gm/dL Hct 21.4 L (39.0-53.0) % RDW 18.3 H (11.5-15.5) % Plt Count 110 L (150-450) k/uL ABG pCO2 (35-45) mmHg ABG pO2 (83-108) mmHg ABG HCO3 (21-25) mmol/L ABG O2 Saturation (94-97) % Potassium 3.3 L (3.5-5.1) mmol/L Chloride 111 H (98-107) mmol/L Carbon Dioxide 19 L (22-30) mmol/L BUN 61 H (9-20) mg/dL Glucose 135 H (74-99) mg/dL POC Glucose (mg/dL) 146 H (75-99) mg/dL Calcium 7.0 L (8.4-10.2) mg/dL Phosphorus 4.6 H (2.5-4.5) mg/dL Crossmatch 10/03/18 10/03/18 Range/Units 07:06 12:17 WBC (3.8-10.6) k/uL RBC (4.30-5.90) m/uL Hgb (13.0-17.5) gm/dL Hct (39.0-53.0) % RDW (11.5-15.5) % Plt Count (150-450) k/uL ABG pCO2 34 L (35-45) mmHg ABG pO2 64 L (83-108) mmHg ABG HCO3 19 L (21-25) mmol/L ABG O2 Saturation 91.9 L (94-97) % Potassium (3.5-5.1) mmol/L Chloride (98-107) mmol/L Carbon Dioxide (22-30) mmol/L BUN (9-20) mg/dL Glucose (74-99) mg/dL POC Glucose (mg/dL) 149 H (75-99) mg/dL Calcium (8.4-10.2) mg/dL Phosphorus (2.5-4.5) mg/dL Crossmatch Assessment and Plan Assessment: Incarcerated right inguinal hernia, status post exploratory laparotomy, bowel resection and ileostomy acute hypoxic resp failure , expected . intubated on vent Anemia Elevated Lactic acid, resolved Elevated troponin, cardiology team recommended anticoagulation Hematuria, improving acute kid injury, improving peritonitis and abd infection , expected . on iv antibiotic chrnoic a fib cardiomyopathy h/o previous iv drug abuse Plan: This is a pleasant 68 years old male who presents with acute abdomen secondary to incarcerated hernia. Patient status surgical resection and ileostomy. Several consults are following the patient including surgery, neurology, critical care/pulmonary, cardiology. Continue with antibiotics. Continue with IV fluids. NG tube. Nothing by mouth.Labs and medication were reviewed. After surgery patient might be going to the intensive care unit. Continue same treatment. Continue with symptomatic treatment. Resume home medication. Monitor lytes and vitals. DVT and GI prophylaxis. Further recommendations of the clinical course of the patient Prognosis is guarded
[2018-10-03] MEDS: MVI, ADULT NO.4 WITH VIT K 10 ML, TRACE (CONC-1ML/DOSE) 1 ML, SODIUM ACETATE 30 MEQ, CA... IV SCH ×6 (14:07)
[2018-10-03 17:50] LABS: Glucose,Whole Blood 136 mg/dL (75-99)
[2018-10-03] MEDS: ANIDULAFUNGIN 100 MG in SODIUM CHLORIDE 0.9% 100 ML IVPB SCH (22:57)
[2018-10-03 23:56] LABS: Glucose,Whole Blood 155 mg/dL (75-99)
[2018-10-04] MEDS: HYDROmorphone 1 MG/ML 1 ML SYRINGE IVP PRN ×3 (00:07→12:02)
[2018-10-04] MEDS: PROPOFOL 1,000 MG in EMPTY BAG 1 BAG IV SCH ×5 (00:39→13:41)
[2018-10-04] MEDS: INSULIN ASPART 100 UNIT/ML 1 ML 10 ML VIAL SQ SCH ×3 (03:48→12:00)
[2018-10-04] MEDS: SODIUM CHLORIDE 0.9% 1,000 ML IV SCH ×2 (03:53→08:47)
[2018-10-04] MEDS ORDERED: POTASSIUM BICARBONATE/CIT AC 20 MEQ TABLET.EFF NG-TUBE SCH (04:00)
[2018-10-04] MEDS: DILTIAZEM 50 MG in SODIUM CHLORIDE 0.9% 40 ML IV SCH ×2 (05:03→16:43)
[2018-10-04 05:10] LABS: Glucose,Whole Blood 160 mg/dL (75-99)
[2018-10-04] MEDS: MVI, ADULT NO.4 WITH VIT K 10 ML, TRACE (CONC-1ML/DOSE) 1 ML, SODIUM ACETATE 30 MEQ, CA... IV SCH ×6 (05:52)
[2018-10-04 06:00] LABS: Ionized Calcium 4.9 mg/dL (4.5-5.3)
[2018-10-04 06:18] LABS: Calcium 7.4 mg/dL (8.4-10.2); Magnesium 1.9 mg/dL (1.6-2.3); Phosphorus 4.2 mg/dL (2.5-4.5); Potassium 3.7 mmol/L (3.5-5.1)
--- NOTE | 2018-10-04 06:18 | XR ---
EXAMINATION TYPE: XR chest 1V DATE OF EXAM: 10/04/2018 HISTORY: Pleural effusions. REFERENCE: Previous study dated 10/03/2018. FINDINGS: The patient is ET tube and NG tube remain in place, unchanged in appearance. There is a rig ht internal jugular catheter in place. There is bibasilar airspace disease. There are bilateral effusions. A stimulator projects over the le ft side of the thorax. The heart is enlarged. The overall appearance is not much changed from previou s. IMPRESSION: NO SIGNIFICANT INTERVAL CHANGE IN THE APPEARANCE THE CHEST.
[2018-10-04 06:50] LABS: Anisocytosis Slight; HCT 20.3 % (39.0-53.0); Hypochromasia Moderate; MCHC 34.3 g/dL (31.0-37.0); MCV 87.5 fL (80.0-100.0); Mean Platelet Volume 11.6; Platelet Count 85 k/uL (150-450); Poikilocytosis Moderate; RBC 2.32 m/uL (4.30-5.90); RDW 18.8 % (11.5-15.5); WBC 21.5 k/uL (3.8-10.6)
[2018-10-04 06:52] LABS: HGB 6.9 gm/dL (13.0-17.5)
[2018-10-04] MEDS: PIPERACILLIN-TAZOBACTAM 3.375 GM in SODIUM CHLORIDE 0.9% 100 ML IVPB SCH ×2 (08:12→16:43)
[2018-10-04 08:54] LABS: Eosinophils # (M) 0.22 k/uL (0-0.7); Lymphocytes # (M) 0.22 k/uL (1.0-4.8); Myelocytes # (M) 0.22 k/uL (0); Myelocytes % 1 %; Neutrophils % (M) 87 %; Nucleated Red Blood Cells 0 /100 WBC (0-0)
[2018-10-04 08:55] LABS: Band Neutrophils % 9 %; Metamyelocytes # (M) 0.22 k/uL (0); Metamyelocytes % 1 %; Monocytes # (M) 0.22 k/uL (0-1.0); Total Cells Counted 200
[2018-10-04 08:56] LABS: Toxic Granulation Present
[2018-10-04] MEDS ORDERED: PANTOPRAZOLE 40 MG/10 ML VIAL IVP SCH (09:00)
[2018-10-04] MEDS ORDERED: HEPARIN SODIUM,PORCINE 5,000 UNIT/ML 1 ML VIAL SQ SCH (09:00)
[2018-10-04] MEDS ORDERED: CHLORHEXIDINE GLUCONATE 15 ML CUP MUCOUS MEM SCH (09:00)
[2018-10-04 10:33] LABS: ABG Base Excess -8.4 mmol/L; ABG HCO3 17 mmol/L (21-25); ABG Oxygen Saturation 92.5 % (94-97); ABG PCO2 31 mmHg (35-45); ABG PH 7.35 (7.35-7.45); ABG PO2 67 mmHg (83-108); ABG TCO2 18 mmol/L (19-24)
[2018-10-04 11:42] LABS: Glucose,Whole Blood 108 mg/dL (75-99)
--- NOTE | 2018-10-04 11:51 | P.PN ---
Subjective Progress Note Date: 10/04/18 Principal diagnosis: Status post exploratory laparotomy and ischemic bowel resection. Postoperative day # 7 repeat expiratory laparotomy postoperative day # #2 This is a 68-year-old -[place] male patient who lives in [place] and the patient usually goes to the [facility] and [facility] for usual medical care. He came in to our emergency department because of abdominal pain. He is currently rehabilitating for substance abuse, IV drug abuse and he was in a penitentiary house on [facility] where he developed increased abdominal pain initially in the suprapubic area and later on his lower abdomen bilaterally more so on the right and the pain was constant and radiating to his back. He came into the emergency department and he was seen by the ED physician. He was given IV morphine for pain control. White cell count was at 15.9. A computed tomography scan of the abdomen was done that showed dilated urinary bladder in addition to a large right-sided scrotal hernia containing the cecum and the terminal ileum. There was no evidence of any bowel obstruction. No evidence of any thoracic or abdominal aortic aneurysm or dissection. The patient initially lactic acid level was 6.7. He was started on IV fluids. He was found to be in atrial fibrillation with rapid ventricular response and he was placed on a Cardizem drip at 5 mg an hour and the patient was admitted to the hospital. I had a chance to evaluate this patient this afternoon. Upon my arrival the patient was in excruciating pain. He was hurting to the point where he was unable to lay down in bed. He was trying to get himself out of the bed. I noted some bloody urine in his Pickett catheter. Abdomen was quite tense and tender and there was direct and rebound tenderness. The right scrotum was quite swollen. No bowel sounds were appreciated. The concern was an incarcerated indirect hernia, with an acute abdomen. Based on that, I immediate recall general surgery and I asked him to come and evaluate this patient in the emergency department as soon as possible for possible surgical intervention of this indirect inguinal hernia. The ultrasound of the testicle showed a grade 4 right-sided testicular microlithiasis.. The patient has noted some progressive swelling in the right scrotum over the past 3 weeks. According to him this is a new finding. No nausea. No vomiting. No chest pain. On today's evaluation of 09/28/2008 and I'm seeing this patient in follow-up. Note that I saw this patient in the emergency department and the patient had an acute abdomen. He was immediately taken to the operating room. Intraoperatively, the patient was found to have ischemic bowel beginning in the distal ileum and extensively throughout the right colon and most of the transverse colon. The bowel was also noted to be strangulated in the right inguinal canal. During the surgery, the patient was noted to be hypotensive and he was started on pressors. He was placed on Rosendo-Synephrine. He underwent a expected to laparotomy, bowel resection and ileostomy was also created. Following that the patient was brought into the intensive care unit. He was kept intubated and on mechanical ventilator. Overnight, the pressors were discontinued. He was given a total of 4 L of IV fluids and currently is on a maintenance and this patient to a bicarb infusion with a rate of 1 25 mL an hour knowing that the patient has some underlying metabolic acidosis. He remains on a mechanical ventilator. He was quite asynchronous. I switched him to a VC plus molds. His current and a tidal volume of 450 with a rate of 14 and FiO2 of 50% with a PEEP of 5. His morning blood gases showed a pH of 7.32 with a pCO2 of 33 and pO2 of 119. The fluid balance is +3.4 L over the past 12 hours. He is producing urine output. He is sedated with Diprivan is calm and comfortable. NG tube is in place. Surgical wound site is clean. Ileostomy site is viable at this point in time. He is covered with broad-spectrum antibiotics with IV Zosyn. Hemoglobin is at 7.6. There was a slight jump in the creatinine which is up to 1.41 which is expected. On 09/29/2018, patient was evaluated in the ICU today, he is status post exploratory laparotomy and resection of what turned out to be an ischemic bowel. Patient was found to have ischemic bowel beginning in the distal ileum and extensively through the right colon and most of the transverse colon. He had a strangulated right inguinal hernia. During the surgery he was hypotensive requiring pressors and fluids, he was also placed on Rosendo- Synephrine. Presently in the ICU, remains on mechanical ventilation, his ventilator settings are basically the same tidal volume is 450, assist control rate of 14 of 5 and FiO2 is down to 40% today. ABG this morning showed a pO2 of 125 pCO2 of 40 pH of 7.40, he was still on a bicarb drip at 25 mL per hour, and I cut it down to 65 mL per hour. CBC was noted, WBC count is 8.8 hemoglobin is 7.3. Renal functioning is a bit worse, although he has a decent urine output, BUN is 46 creatinine is 1.71. Clearly the patient developed some acute kidney injury. Chest x-ray was reviewed, endotracheal tube seems to be in the proper position. There is evidence of bibasilar infiltrates, right more so than left. Patient remains on broad-spectrum antibiotics. He is presently on Zosyn. The rise in creatinine is expected considering his presentation. Patient is sedated, however I plan to withhold propofol, assess mental status, and possibly consider a weaning trial if possible. Reevaluated today on 09/30/2018, patient remains on mechanical ventilation, ventilator settings are tidal volume of 450 assist-control rate of 20 PEEP of 5 and FiO2 of 40%. Patient remains on Cardizem drip, heparin drip, propofol drip , TPN. Presently the propofol was placed on hold, and I plan to address the patient's mental status, and possibly give him a trial of weaning utilizing a pressure support and CPAP. Chest x-ray did show evidence of congestive changes , central vascular congestion, and small bilateral effusions were noted. Urine output seems to be excellent. There is some right basilar atelectasis, strongly doubt pneumonia. Reevaluated today on 10/01/2018, remains on mechanical ventilation, ventilator settings are assist control rate of 16, tidal volume of 450 FiO2 40% and PEEP of 5. Patient remains on heparin drip, propofol drip, TPN, and Cardizem drip. Remains on antibiotics as ordered by infectious disease. ABG this morning showed a pO2 of 97 pCO2 of 35 pH of 7.48. His PTT is therapeutic. CBC is relatively normal hemoglobin is low at 7.2. BUN remains elevated at 46, creatinine is 1.28, improving compared to the last few days. After my evaluation, propofol was discontinued, and I plan to awaken the patient, and assess if he could tolerate any weaning trials. His abdomen is still distended , and his ileostomy seems to be nonfunctional so far. Being followed by general surgery regarding this issue specifically. Patient was reevaluated today on 10/02/2018, remains on mechanical ventilation, and his ventilator settings are basically the same, assist control rate of 18, tidal volume is 450, 40% FiO2 and PEEP of 5. Inspiratory flows are at 70 L/m. Peak airway pressure is in the low 30s, plateau pressures are 25. His labs are showing worsening anemia hemoglobin is down to 6.8, hence I recommended a unit of packed RBCs. His renal functioning is also showing a decline, urine output is low, creatinine is 1.78 and the bladder pressures were measured around 25. His abdomen is becoming more and more distended, and hard. Rigid. No bowel sounds. No significant output from the ileostomy, noted worsening scrotal swelling, lactic acid is 1.9 today, hence I am concerned about abdominal compartment syndrome, and I'm concerned that the patient is actually getting worse. The surgeon was notified, and he evaluated the patient, he discussed his condition with his daughter, and I believe he is planning to have the patient go back to the OR for expiratory laparotomy, and decompression. CD4 count on this patient is only 65. ABG showed a pO2 of 78 pCO2 of 36 pH of 7.39. Chest x-ray is showing evidence of worsening central vascular congestion , and worsening right pleural effusion right basilar atelectasis and/or infiltrate. Overall the chest x-ray is suggestive of worsening fluid overload. Patient remains on propofol, Cardizem, heparin, not requiring any pressors. Yesterday, I wasn't able to assess mental status of this patient although propofol was placed on hold, and patient became later on agitated, had to be placed back on propofol. Patient was reevaluated today on 10/03/2018, he did have expiratory laparotomy yesterday with a concern of compartment syndrome, patient was found to have several patches of ischemia throughout the small bowel. There was also multiple areas of gangrenous and green and very foul-smelling due to the extent of the ischemia and ischemic changes. The surgeon felt there may be an ischemic event involving this appeared mesenteric artery apparently the surgeon updated his daughter on his condition, and agreed to eventually consider comfort care measures. No further intervention was recommended at that time of the surgery. The surgeon felt that this is clearly a medical futility situation. Patient remains today on mechanical ventilation, he is on FiO2 of 50 %, assist control rate of 20 tidal volume of 450 and PEEP of 5. ABG showed a pO2 of 64 pCO2 of 34 pH of 7.37. WBC count is 22.3 hemoglobin is 7.3 potassium is 3.3 BUN is 61 creatinine 1.25. Chest x-ray is suggestive of bilateral pleural effusions with atelectasis, difficult to rule out infiltrates. Patient remains hemodynamically stable not requiring any pressors, he is however on propofol at 75 mcg/kg/m. Patient was reevaluated today on 10/04/2018, remains on mechanical ventilation, and his clinical condition seems to be deteriorating gradually. His chest x- ray is worsening showing evidence of pulmonary edema could be cardiogenic or noncardiogenic in nature. His CBC showed leukocytosis of 21.5, hemoglobin is 6.9, ABG is reflecting some component of moderate metabolic acidosis, non-anion gap, apparently his daughter was updated on his status, and I believe she is coming today for addressing comfort care measures and discontinuation of medical care except for comfort care measures. At this point in time since the condition is a futility condition, I believe it is very appropriate. Reviewed his chest x-ray, his meds, and his labs, however at this point I believe his prognosis is basically 0 recovery. Objective - Vital Signs Vital signs: Vital Signs Temp 97.8 F 10/04/18 08:00 Pulse 63 10/04/18 11:00 Resp 27 H 10/04/18 11:00 BP 89/57 10/04/18 11:00 Pulse Ox 96 10/04/18 11:00 Intake & Output 10/03/18 10/04/18 10/04/18 18:59 06:59 18:59 Intake Total 3015.417 3030 647.158 Output Total 1040 985 490 Balance 0527.128 3106 157.158 Weight 72.8 kg 74 kg Intake: IV 1720 1735 580 Anidulafungin 100 mg In 100 Sodium Chloride 0.9% 100 ml @ 84 mls/hr IVPB DAILY @2100 [facility] Rx#:[id number] Calcium Gluconate 1,000 100 mg In Sodium Chloride 0.9 % 100 ml @ 100 mls/hr IVPB ONCE ONE Rx#: [id number] Piperacillin-Tazobactam 3 100 75 100 .375 gm In Sodium Chloride 0.9% 100 ml @ 25 mls/hr IVPB Q8HR [facility] Rx# :[id number] Potassium Chloride 20 meq 100 In Water For Injection 1 100ml.bag @ 50 mls/hr IVPB Q2H [facility] Rx#: [id number] Potassium Chloride 20 meq 100 In Water For Injection 1 100ml.bag @ 50 mls/hr IVPB Q2H [facility] Rx#: [id number] Sodium Chloride 0.9% 1, 1320 1560 480 000 ml @ 120 mls/hr IV . Q8H20M [facility] Rx#:[id number] Intake, IV Titration 6393.180 3635 67.158 Amount Diltiazem 50 mg In Sodium 44.417 50 Chloride 0.9% 40 ml @ 5 MG/HR 5 mls/hr IV .Q10H [facility] Rx#:[id number] Mvi, Adult No.4 with Vit 1051 945 K 10 ml Trace (Conc-1Ml/ Dose) 1 ml Sodium Acetate 30 meq Calcium Gluconate 1,000 mg Potassium Chloride 30 meq In Amino Acid 5%-D15w 1,000 ml @ 60 mls/hr IV .[id number] [facility] Rx#:[id number] Propofol 1,000 mg In 200 300 67.158 Empty Bag 1 bag @ Titrate IV .Q0M [facility] Rx#: [id number] Output: Gastric Drainage 250 Urine 1040 985 240 Other: Voiding Method Indwelling Catheter Indwelling Catheter Indwelling Catheter ABP, PAP, CO, CI - Last Documented Arterial Blood Pressure 106/47 - Exam Physical Exam: Revealed a 68-year-old black male on mechanical ventilation, sedated, in no distress. Endotracheal tube and orogastric tube are noted to be intact. Head: Atraumatic, normocephalic, HEENT: PERRLA, EOMI, moist mucous membranes. [Neck is supple.] [No neck masses. ] [No thyromegaly.] [No JVD.] Chest: [Crackles and rhonchi bilaterally especially at the bases, endotracheal tube is intact..] Cardiac Exam: [Normal S1 and S2, no S3 gallop, no murmur.] Abdomen: [Surgical wound is clean, ileostomy bag was noted, seems to be relatively empty, ileostomy seems dark, abdomen remains distended, rigid, no bowel sounds. Ileostomy is nonfunctional. Extremities: [No clubbing, trace of bipedal edema, no cyanosis.] Neurological Exam: Cannot be assessed, patient is sedated, on propofol. No plans to hold propofol at this point unless we go to comfort care. Psychiatric: Could not be assessed patient remains sedated on propofol. Skin: Surgical site is covered. - Labs CBC & Chem 7: 10/04/18 05:09 10/04/18 05:09 Labs: Abnormal Lab Results - Last 24 Hours (Table) 10/03/18 10/03/18 10/03/18 Range/Units 12:17 17:48 23:51 WBC (3.8-10.6) k/uL RBC (4.30-5.90) m/uL Hgb (13.0-17.5) gm/dL Hct (39.0-53.0) % RDW (11.5-15.5) % Plt Count (150-450) k/uL Neutrophils # (Manual) (1.3-7.7) k/uL Lymphocytes # (Manual) (1.0-4.8) k/uL Metamyelocytes # (Man) (0) k/uL Myelocytes # (Manual) (0) k/uL ABG pCO2 (35-45) mmHg ABG pO2 (83-108) mmHg ABG HCO3 (21-25) mmol/L ABG Total CO2 (19-24) mmol/L ABG O2 Saturation (94-97) % Chloride (98-107) mmol/L Carbon Dioxide (22-30) mmol/L BUN (9-20) mg/dL Glucose (74-99) mg/dL POC Glucose (mg/dL) 149 H 136 H 155 H (75-99) mg/dL Calcium (8.4-10.2) mg/dL 10/04/18 10/04/18 10/04/18 Range/Units 05:09 05:09 05:09 WBC 21.5 H (3.8-10.6) k/uL RBC 2.32 L (4.30-5.90) m/uL Hgb 6.9 L* (13.0-17.5) gm/dL Hct 20.3 L (39.0-53.0) % RDW 18.8 H (11.5-15.5) % Plt Count 85 L (150-450) k/uL Neutrophils # (Manual) 20.60 H (1.3-7.7) k/uL Lymphocytes # (Manual) 0.22 L (1.0-4.8) k/uL Metamyelocytes # (Man) 0.22 H (0) k/uL Myelocytes # (Manual) 0.22 H (0) k/uL ABG pCO2 (35-45) mmHg ABG pO2 (83-108) mmHg ABG HCO3 (21-25) mmol/L ABG Total CO2 (19-24) mmol/L ABG O2 Saturation (94-97) % Chloride 115 H (98-107) mmol/L Carbon Dioxide 17 L (22-30) mmol/L BUN 60 H (9-20) mg/dL Glucose 147 H (74-99) mg/dL POC Glucose (mg/dL) 160 H (75-99) mg/dL Calcium 7.4 L (8.4-10.2) mg/dL 10/04/18 10/04/18 Range/Units 08:07 11:40 WBC (3.8-10.6) k/uL RBC (4.30-5.90) m/uL Hgb (13.0-17.5) gm/dL Hct (39.0-53.0) % RDW (11.5-15.5) % Plt Count (150-450) k/uL Neutrophils # (Manual) (1.3-7.7) k/uL Lymphocytes # (Manual) (1.0-4.8) k/uL Metamyelocytes # (Man) (0) k/uL Myelocytes # (Manual) (0) k/uL ABG pCO2 31 L (35-45) mmHg ABG pO2 67 L (83-108) mmHg ABG HCO3 17 L (21-25) mmol/L ABG Total CO2 18 L (19-24) mmol/L ABG O2 Saturation 92.5 L (94-97) % Chloride (98-107) mmol/L Carbon Dioxide (22-30) mmol/L BUN (9-20) mg/dL Glucose (74-99) mg/dL POC Glucose (mg/dL) 108 H (75-99) mg/dL Calcium (8.4-10.2) mg/dL Assessment and Plan Assessment: Impression: 1 status post exploratory laparotomy, and resection of ischemic bowel secondary to strangulated right inguinal hernia and chronic atrial fibrillation. Patient is status post ileostomy postoperative day #7 and repeat exploratory laparotomy postoperative day #2 2 postoperative respiratory failure, expected, considering the extensiveness of the ischemic bowel and considering the presentation. Patient had profound metabolic acidosis resolved, sodium bicarb was discontinued. However I expect acidosis will worsen as we are dealing with more ischemic bowel as noted on the last operative report. 3 acute kidney injury secondary to hypotension secondary to abdominal sepsis. Possible septic shock on presentation requiring pressors and fluid boluses in the operating room. 4 suspect early abdominal compartment syndrome, surgeon was made aware, patient may have to undergo exploratory laparotomy and decompression. 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 7 chronic atrial fibrillation presently on Cardizem drip, and he is on anticoagulation therapy 8 LV dysfunction and previous AICD placement 9 history of IV drug abuse undergoing rehabilitation. 10 lactic acidosis secondary to bowel ischemia and compartment syndrome, abdominal sepsis. Recommendation: Continue present measures, however patient will be made Comfort Care sometime today. Not much to be added, prognosis is extremely poor. Agree with comfort care measures as already discussed between the surgeon and his daughter. Critical care time is 32 minutes Time with Patient: Greater than 30
[2018-10-04 12:20] VITALS: TEMP 98.1
[2018-10-04] MEDS ORDERED: POTASSIUM CHLORIDE 10 MEQ in WATER FOR INJECTION 1 100ML.BAG IVPB SCH (14:00)
[2018-10-04] MEDS ORDERED: MAGNESIUM SULFATE-D5W PMX 1 GM in DEXTROSE/WATER 1 100ML.BAG IVPB SCH (14:00)
[2018-10-04 16:42] VITALS: PULSE 67; RESP 29
--- NOTE | 2018-10-05 02:10 | P.PN ---
Subjective This is a pleasant 68 years old male with past medical history of hypertension and no much home medication presents because of abdominal pain In the emergency room he was afebrile, tachycardic with heart rate range between 110-144. Tachypneic with heart rate 25 blood pressure 137/88. Labs reviewed showing WBC 13.9 K, hemoglobin 9.1, platelets 246. INR 1.0. Sodium 141. Potassium 3.2. High lactic acid 6.7, coming down to 3.1, with elevated AST at 72. With normal ALT. Troponin is elevated at 0.05 and 0.08. Amylase is high but lipase within normal at 158. Urinalysis showing moderate blood. Chest x-ray showed cardiomegaly with no active cardiopulmonary disease. The patient was shown mild changes of congestive CHF. CT of the abdomen and pelvis showing right-sided inguinal and scrotal hernia contents the cecum and terminal ileum. But don't us obstruction. However in the abdominal examination patient has significant abdominal tenderness and scrotal tenderness with his swelling. This was discussed with the surgical call Dr. Cline and the plan was to take him to the surgery for his acute abdomen and after that may be to the intensive care unit. I spoke with the patient and he able to do the surgery also I spoke with the patient daughter upon his request Mrs. Pederson at [phone]. And updated her with her father situation and all her rashes were answered to her satisfaction. 09/28/2018 Patient is status post exploratory laparotomy with action and ileostomy mostly secondary to incarcerated hernia. Is currently in the ICU intubated and sedated. With hematuria in the Pickett catheter. ALLERGY consultation is appreciated most likely this is secondary to Pickett catheter area surgery R following the patient as well as critical care unit. Cardiology also on the case. Patient remains on sodium bicarb, Protonix, IV antibiotics with Zosyn. His W Blas 5.6K. Hemoglobin 7.6. Sodium 140. Creatinine 1.4. I called his daughter Mrs. Pederson at [phone] and left a message to call me back. 09/29/2018 Patient is status post exploratory laparotomy with action and ileostomy mostly secondary to incarcerated hernia.possible some ischemic colitis . cardiology team recommended anticoagulation once he is more stable. Is currently in the ICU intubated and sedated. With hematuria in the Pickett catheter. urology consultation is appreciated most likely his hematuria is secondary to Pickett catheter area surgery R following the patient as well as critical care unit. Cardiology also on the case.pt was evaluated by ID team today Patient remains on sodium bicarb, Protonix, IV antibiotics with Zosyn. His WBC 8.8 K. Hemoglobin 7.3. Sodium 140. Creatinine 1.7. I called his daughter Mrs. Pederson at [phone] and she HAS called back and she was updated about her father condition as per staff. ID team evaluation is appreciated for possible treatment of HIV status. they agree with antibiotic therapy of zosyn and added anti-fungal therapy with Eraxis. 09/30/2018 pt is in ICU sedated and intubated . pt is been followed up by the critical care team . his stomy bag is still empty, abd is slightly distended. cardiology team recommended anticoagulation which is ok as per surgery team. he was started on heparin drip. With hematuria in the Pickett catheter is improving. urology consultation is appreciated most likely his hematuria is secondary to Pickett catheter area surgery R following the patient as well as critical care unit. Cardiology also on the case.pt was evaluated by ID team today His WBC 9.8 K. Hemoglobin 7.3 stable. Sodium 140. Creatinine 1.3 which keeps improving. ID team evaluation is appreciated for possible treatment of HIV status. they agree with antibiotic therapy of zosyn and added anti-fungal therapy with Eraxis. 10/01/2018 pt was seen and examined in the ICU, he still intubated and sedated , sedation holiday was tried today by the pulmonary/critical care team. pt has a little abd distension , abdominal x-ray : less gaseous distension , possible improving ileus, colostomy bag having some dark brown secretion, no enteral feeding , NG tube is in place and was flushed today as pt vomited once last night , TPN nutrition was started. surgical team is following the pt 10/02/2018 pt is in the ICU intubated , he had more abdominal distension today and he was taken to the operating room , large part of the bowel was non viable, and plan was to proceed with comfort care. family are aware of the plan. wbc 15 K, Hb 6.8 , and platelet 121,creatinie 1.7 , sugar 120s-140s, prognosis remains very poor. 10/03/2018 Patient in the ICU, intubated on on parenteral nutrition. Chest x-ray showing bilateral small pleural effusion with adjacent atelectasis or infiltrate. 1 dose of Lasix was given. His WBC is trending up to 22.3. Creatinine is 1.25, calcium is low at 7.0. And patient got 1 dose of calcium gluconate 1000 mg IV once. Patient on antibiotics Zosyn. Several consultants R following the case including physical care team, surgery team cardiology team , and infectious disease team. 10/04/2018 pt is intubated in the ICU , he is comfort care as per family wishes. comfort care orders were initiated including morphine ,scopolamine patch , oxygen , zofran and ativan. pt does not look in distress , no movement was noted in upper or lower extremity Objective - Vital Signs Vital signs: Vital Signs Temp 97.8 F 10/04/18 08:00 Pulse 63 10/04/18 11:00 Resp 27 H 10/04/18 11:00 BP 89/57 10/04/18 11:00 Pulse Ox 96 10/04/18 11:00 Intake & Output 10/03/18 10/04/18 10/04/18 18:59 06:59 18:59 Intake Total 3015.417 3030 647.158 Output Total 1040 985 490 Balance 9544.117 0527 157.158 Weight 72.8 kg 74 kg Intake: IV 1720 1735 580 Anidulafungin 100 mg In 100 Sodium Chloride 0.9% 100 ml @ 84 mls/hr IVPB DAILY @2100 COUNTS INCLUDE 234 BEDS AT THE [facility] Rx#:[id number] Calcium Gluconate 1,000 100 mg In Sodium Chloride 0.9 % 100 ml @ 100 mls/hr IVPB ONCE ONE Rx#: [id number] Piperacillin-Tazobactam 3 100 75 100 .375 gm In Sodium Chloride 0.9% 100 ml @ 25 mls/hr IVPB Q8HR COUNTS INCLUDE 234 BEDS AT THE [facility] Rx# :[id number] Potassium Chloride 20 meq 100 In Water For Injection 1 100ml.bag @ 50 mls/hr IVPB Q2H [facility] Rx#: [id number] Potassium Chloride 20 meq 100 In Water For Injection 1 100ml.bag @ 50 mls/hr IVPB Q2H COUNTS INCLUDE 234 BEDS AT THE [facility] Rx#: [id number] Sodium Chloride 0.9% 1, 1320 1560 480 000 ml @ 120 mls/hr IV . Q8H20M [facility] Rx#:[id number] Intake, IV Titration 4584.992 3903 67.158 Amount Diltiazem 50 mg In Sodium 44.417 50 Chloride 0.9% 40 ml @ 5 MG/HR 5 mls/hr IV .Q10H [facility] Rx#:[id number] Mvi, Adult No.4 with Vit 1051 945 K 10 ml Trace (Conc-1Ml/ Dose) 1 ml Sodium Acetate 30 meq Calcium Gluconate 1,000 mg Potassium Chloride 30 meq In Amino Acid 5%-D15w 1,000 ml @ 60 mls/hr IV .[id number] [facility] Rx#:[id number] Propofol 1,000 mg In 200 300 67.158 Empty Bag 1 bag @ Titrate IV .Q0M [facility] Rx#: [id number] Output: Gastric Drainage 250 Urine 1040 985 240 Other: Voiding Method Indwelling Catheter Indwelling Catheter Indwelling Catheter ABP, PAP, CO, CI - Last Documented Arterial Blood Pressure 106/47 - Exam GENERAL: The patient is intubated and sedated, not in any acute distress. Well developed, well nourished. HEENT: Pupils are round and equally reacting to light. EOMI. No scleral icterus. No conjunctival pallor. Normocephalic, atraumatic. No pharyngeal erythema. No thyromegaly. CARDIOVASCULAR: S1 and S2 present. No murmurs, rubs, or gallops. PULMONARY: Chest is clear to auscultation, no wheezing or crackles. -ABDOMEN: Soft, incision is closed with no surrounding cellulitis or discharge.. No palpable organomegaly. Pickett catheter in place MUSCULOSKELETAL: No joint swelling or deformity. EXTREMITIES: No cyanosis, clubbing, or pedal edema. NEUROLOGICAL: Gross neurological examination did not reveal any focal deficits. SKIN: No rashes - Labs CBC & Chem 7: 10/04/18 05:09 10/04/18 05:09 Labs: Abnormal Lab Results - Last 24 Hours (Table) 10/03/18 10/03/18 10/03/18 Range/Units 12:17 17:48 23:51 WBC (3.8-10.6) k/uL RBC (4.30-5.90) m/uL Hgb (13.0-17.5) gm/dL Hct (39.0-53.0) % RDW (11.5-15.5) % Plt Count (150-450) k/uL Neutrophils # (Manual) (1.3-7.7) k/uL Lymphocytes # (Manual) (1.0-4.8) k/uL Metamyelocytes # (Man) (0) k/uL Myelocytes # (Manual) (0) k/uL ABG pCO2 (35-45) mmHg ABG pO2 (83-108) mmHg ABG HCO3 (21-25) mmol/L ABG Total CO2 (19-24) mmol/L ABG O2 Saturation (94-97) % Chloride (98-107) mmol/L Carbon Dioxide (22-30) mmol/L BUN (9-20) mg/dL Glucose (74-99) mg/dL POC Glucose (mg/dL) 149 H 136 H 155 H (75-99) mg/dL Calcium (8.4-10.2) mg/dL 10/04/18 10/04/18 10/04/18 Range/Units 05:09 05:09 05:09 WBC 21.5 H (3.8-10.6) k/uL RBC 2.32 L (4.30-5.90) m/uL Hgb 6.9 L* (13.0-17.5) gm/dL Hct 20.3 L (39.0-53.0) % RDW 18.8 H (11.5-15.5) % Plt Count 85 L (150-450) k/uL Neutrophils # (Manual) 20.60 H (1.3-7.7) k/uL Lymphocytes # (Manual) 0.22 L (1.0-4.8) k/uL Metamyelocytes # (Man) 0.22 H (0) k/uL Myelocytes # (Manual) 0.22 H (0) k/uL ABG pCO2 (35-45) mmHg ABG pO2 (83-108) mmHg ABG HCO3 (21-25) mmol/L ABG Total CO2 (19-24) mmol/L ABG O2 Saturation (94-97) % Chloride 115 H (98-107) mmol/L Carbon Dioxide 17 L (22-30) mmol/L BUN 60 H (9-20) mg/dL Glucose 147 H (74-99) mg/dL POC Glucose (mg/dL) 160 H (75-99) mg/dL Calcium 7.4 L (8.4-10.2) mg/dL 10/04/18 Range/Units 08:07 WBC (3.8-10.6) k/uL RBC (4.30-5.90) m/uL Hgb (13.0-17.5) gm/dL Hct (39.0-53.0) % RDW (11.5-15.5) % Plt Count (150-450) k/uL Neutrophils # (Manual) (1.3-7.7) k/uL Lymphocytes # (Manual) (1.0-4.8) k/uL Metamyelocytes # (Man) (0) k/uL Myelocytes # (Manual) (0) k/uL ABG pCO2 31 L (35-45) mmHg ABG pO2 67 L (83-108) mmHg ABG HCO3 17 L (21-25) mmol/L ABG Total CO2 18 L (19-24) mmol/L ABG O2 Saturation 92.5 L (94-97) % Chloride (98-107) mmol/L Carbon Dioxide (22-30) mmol/L BUN (9-20) mg/dL Glucose (74-99) mg/dL POC Glucose (mg/dL) (75-99) mg/dL Calcium (8.4-10.2) mg/dL Assessment and Plan Assessment: Incarcerated right inguinal hernia, status post exploratory laparotomy, bowel resection and ileostomy gangrenous bowel acute hypoxic resp failure , expected . intubated on vent Anemia Elevated Lactic acid, resolved Elevated troponin, cardiology team recommended anticoagulation Hematuria, improving acute kid injury, improving peritonitis and abd infection , expected . on iv antibiotic chrnoic a fib cardiomyopathy h/o previous iv drug abuse Plan: This is a pleasant 68 years old male who presents with acute abdomen secondary to incarcerated hernia. Patient status surgical resection and ileostomy. Several consults are following the patient including surgery, neurology, critical care/pulmonary, cardiology. bowel became necrotic and surgical intervention is possible to help the pt , family decided cofort care for the pt , and orders were initiated . pt remains intubated but not looking in distress in the ICU prognosis is poor
== END 2018-10-04 17:06 | disposition hospice, inpatient (51) | DRG 329 ==
LOC: EC 03:29 → 2SICU 08:20
PROVIDERS: ADMIT Hospitalist; ATTEND Hospitalist
PROC: 0DBF0ZZ Excision of Right Large Intestine, Open Approach (ICD-10-PCS; principal; 2018-09-27 16:00)
PROC: 0DBL0ZZ Excision of Transverse Colon, Open Approach (ICD-10-PCS; principal; 2018-09-27 16:00)
PROC: 0D1B0Z4 Bypass Ileum to Cutaneous, Open Approach (ICD-10-PCS; principal; 2018-09-27 16:00)
PROC: 05HM33Z Insertion of Infusion Device into Right Internal Jugular Vein, Percutaneous Approach (ICD-10-PCS; 2018-09-27 16:00)
PROC: 0WJP0ZZ Inspection of Gastrointestinal Tract, Open Approach (ICD-10-PCS; 2018-10-02)
DX: K40.30 Unilateral inguinal hernia, with obstruction, without gangrene, not specified as recurrent (principal); K65.9 Peritonitis, unspecified; J95.821 Acute postprocedural respiratory failure; K55.012 Diffuse acute (reversible) ischemia of small intestine; K55.9 Vascular disorder of intestine, unspecified; E87.2 Acidosis; I42.9 Cardiomyopathy, unspecified; J98.11 Atelectasis; N17.9 Acute kidney failure, unspecified; T83.83XA Hemorrhage due to genitourinary prosthetic devices, implants and grafts, initial encounter; D64.9 Anemia, unspecified; E78.5 Hyperlipidemia, unspecified; F17.200 Nicotine dependence, unspecified, uncomplicated; I11.0 Hypertensive heart disease with heart failure; I25.10 Atherosclerotic heart disease of native coronary artery without angina pectoris; I48.0 Paroxysmal atrial fibrillation; I48.2 Chronic atrial fibrillation; I50.9 Heart failure, unspecified; I73.9 Peripheral vascular disease, unspecified; Z21 Asymptomatic human immunodeficiency virus [HIV] infection status; Z51.5 Encounter for palliative care; Z79.01 Long term (current) use of anticoagulants; Z79.02 Long term (current) use of antithrombotics/antiplatelets; Z79.899 Other long term (current) drug therapy; Z90.49 Acquired absence of other specified parts of digestive tract; Z95.810 Presence of automatic (implantable) cardiac defibrillator; I95.9 Hypotension, unspecified; Y84.6 Urinary catheterization as the cause of abnormal reaction of the patient, or of later complication, without mention of misadventure at the time of the procedure
CPT/HCPCS: 36415; 36556; 51702; 71045; 71260; 74018; 74177; 76870; 80048; 80053; 81001; 82150; 82272; 82330; 82805; 83036; 83605; 83690; 83735; 84100; 84132; 84478; 84484; 85025; 85027; 85610; 85730; 86360; 86850; 86900; 86901; 86920; 87070; 87205; 88307; 93306; 93975; 94002; 94003; 96365; 96366; 96368; 96372; 96375; 96376; 99285

== ENCOUNTER 2018-10-03 15:41 | Inpatient (IN) | payer MEDICAID ==
[2018-10-03] MEDS ORDERED: ACETAMINOPHEN SUPPOSITORY 650 MG SUPP RECTAL PRN (15:45)
[2018-10-03] MEDS ORDERED: ATROPINE OPHTH SOLN 1% 5ML BTL SUBLINGUAL PRN (15:45)
[2018-10-03] MEDS ORDERED: ONDANSETRON 4 MG/2 ML VIAL IVP PRN (15:45)
[2018-10-03] MEDS ORDERED: MORPHINE SULFATE 2 MG/ML SYRINGE IV PRN (15:45)
[2018-10-03] MEDS ORDERED: BISACODYL 10 MG SUPP RECTAL PRN (15:51)
[2018-10-03] MEDS ORDERED: SCOPOLAMINE 1.5MG/72HR PATCH TRANSDERM SCH (16:00)
[2018-10-03] MEDS ORDERED: LORazepam 2 MG/ML INJ IV PRN (21:00)
[2018-10-04] MEDS: MORPHINE SULFATE (100 MG/2 ML) 100 MG in SODIUM CHLORIDE 0.9% 100 ML IV SCH ×3 (17:15→23:26)
[2018-10-05] MEDS: MORPHINE SULFATE (100 MG/2 ML) 100 MG in SODIUM CHLORIDE 0.9% 100 ML IV SCH ×12 (00:48→20:48)
[2018-10-05 10:42] VITALS: PULSE 89; TEMP 96.4
[2018-10-05 11:00] VITALS: RESP 10
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
== END 2018-10-05 20:50 | disposition expired | DRG 951 ==
LOC: 2SICU 10-04 17:06
PROVIDERS: ADMIT Internal Medicine; ATTEND Internal Medicine
DX: Z51.5 Encounter for palliative care (principal); J96.01 Acute respiratory failure with hypoxia; K55 Vascular disorders of intestine; K65.9 Peritonitis, unspecified; I42.9 Cardiomyopathy, unspecified; N17.9 Acute kidney failure, unspecified; D64.9 Anemia, unspecified; F17.200 Nicotine dependence, unspecified, uncomplicated; I11.0 Hypertensive heart disease with heart failure; I25.10 Atherosclerotic heart disease of native coronary artery without angina pectoris; I48.2 Chronic atrial fibrillation; I50.9 Heart failure, unspecified; I73.9 Peripheral vascular disease, unspecified; R31.9 Hematuria, unspecified; R77.9 Abnormality of plasma protein, unspecified; Z95.810 Presence of automatic (implantable) cardiac defibrillator; Z79.02 Long term (current) use of antithrombotics/antiplatelets; Z79.899 Other long term (current) drug therapy